=== PATIENT | male | born 1955 | race Caucasian/White ===

== ENCOUNTER → 2021-11-25 00:53 | Outpatient (CLI) | payer MEDICARE, MEDICAID, SELFPAY ==
--- NOTE | 2021-11-25 | DI.CTLCSR_ITS ---
Exam(s) CT CHEST LUNG CANCER SCREEN EXAM: CT CHEST LUNG CANCER SCREEN CLINICAL HISTORY: SCREENING FOR LUNG CA, SMOKER, F17.210. TECHNIQUE: Imaging Protocol: Low Dose Technique CONTRAST MATERIAL: None COMPARISON: No exams were available for comparison FINDINGS: CHEST: LUNGS: There is a pleural-based 3 millimeter noncalcified nodule in the lateral aspect of the left up per lobe.. No other focal left lung findings. No significant focal right lung findings.. There are no confluent infiltrates. No pleural effusions. MEDIASTINUM: There is no obvious hilar nor mediastinal adenopathy. CARDIAC: Heart size is normal. There is no pericardial effusion.Caliber of the thoracic aorta is wit hin normal limits. OTHER: Incidentally noted is a 2 x 1.5 cm subcapsular hypodensity in medial aspect right hepatic lobe , not possible to determine etiology on this type of low-dose noninfused study. Should be further st udied, starting with ultrasound. OSSEOUS: No significant osseous lesions.. IMPRESSION: 1. Solitary 3 millimeter subpleural left upper lobe nodule. 2. No infiltrates nor pleural effusions nor intrathoracic adenopathy. Hepatic finding as described a yue for which follow-up ultrasound is recommended. 3. Lung RADS Cat 2S - Benign Appearance / Behavior: Nodules with a very low likelihood of becoming a clinically active cancer due to size or lack of growth Lung-RADS 1.0 CATEGORIES: Category 0 - Prior chest CT exam(s) being located for comparison. Category 1 - Annual screening in 12 months. No nodules or definitely benign nodules. Category 2 - Annual screening in 12 months. Benign appearance. Nodules with low likelihood of becomin g active cancer. Category 3 - 6-month follow-up. Probably benign. Short-term follow-up suggested. Nodules with low lik elihood of becoming active cancer. Category 4A - 3-month follow-up and CT/PET if >8 mm in size. Suspicious finding. Findings which requi re additional testing. Category 4B - Findings which require additional testing and tissue sampling. Category 4X - Category 3 or 4 nodules with additional features or imaging findings that increases the suspicion of malignancy. Modifier S- Potentially clinically significant findings (non lung cancer) RADIATION DOSE DELIVERED: 94.49mGy.cm Total DLP 2.21mGy CTDIvol DATA REPOSITORY: All CT scans at this facility are submitted to the National Radiology Data Registry (NRDR) Dose Index Registry (DIR) with the [employer] (ACR). RADIATION OPTIMIZATION: All CT scans at this facility use at least one of these dose optimization te chniques: automated exposure control; mA and/or kV adjustment per patient size (includes targeted exa ms where dose is matched to clinical indication); or iterative reconstruction.
--- OUTSIDE RECORDS SUMMARY | 2021-11-25 01:03 | XMS_ITS | Encounter Summary ---
:1955 Author Organization [place] [address] Care Team Providers Name Role Phone Rohan Amador MD Primary Care Provider Encounter Details Date Type Department Care Team Description 08/06/[address] [facility] Jessy Vo MD [facility] [place] [address] UROLOGY DEPT [phone] [place] [id number] (Wo rk) Social History Tobacco Use Types Packs/Day Years Used Date Never Assessed Sex Assigned at Date Recorded Not on file documented as of this encounter Miscellaneous Notes Telephone Encounter - Jessy Vo MD - 08/06/2019 2:19 PM EDT I called Chapin Perez to discuss his upcoming Urology appointment. I explained that due to the COVID-19 pandemic we are making attempts to decrease the amount of non-urgent patients seen in our clinic and hospital to both decrease the risk of transmission of the virus and conserve vital resources. He had bladder cancer and a TURBT ~1 year ago. He had a TURBT at [facility] in October 2018. No hematuria. Thus, he is likely overdue for surveillance cystoscopy. Offered to keep the appt for next week or topostpone by 4-6 weeks. He prefers the latter. he understands we will jay to reschedule, but if he does not hear form us he will call to arrange anappointment. In the meantime if something changes he can call our office and we will be happy to re-evaluate and/or see him promptly. JESSY VO MD 08/06/2019 documented in this encounter Plan of Treatment Not on filedocumented as of this encounter Visit Diagnoses Not on filedocumented in this encounter Care Teams Systems Administration Analyst Relationship Specialty Start Date End Date Rohan Amador MD PCP - General 03/30/10 10/08/19 [facility] [address] [place] [address] documented as of this encounter
--- OUTSIDE RECORDS SUMMARY | 2021-11-25 01:03 | XMS_ITS | Encounter Summary ---
:1955 Author Organization [facility] Address [address] [place] [address] Care Team Providers Name Role Phone French Mcguire ND Primary Care Provider Encounter Details Date Type Department Care Team Description 10/15/2018 Hospital Encounter [facility] - Unknown, [facility] [phone] [place] [address] (Work) [place] [address] Social History Tobacco Use Types Packs/Day Years Used Date Current Every Day Smoker 1 Smokeless Tobacco: Never Used Alcohol Use Standard Drinks/Week Comments Yes 14 (1 standard drink = 0.6 oz pure alcoh ol) Sex Assigned at Date Recorded Not on file documented as of this encounter Medications at Time of Discharge Medication Sig Dispensed Refills Start Date End Date ibuprofen (MOTRIN) 200 mg Take 400 mg by mouth 0 tablet every 6 hours as needed for Pain. documented as of this encounter Discharge Disposition Disposition Code Departure Means Destination Home or Self Half-Way documented in this encounter Plan of Treatment Not on filedocumented as of this encounter Visit Diagnoses Not on filedocumented in this encounter Care Teams Occup Therapist Relationship Specialty Start Date End Date French Mcguire ND PCP - General 03/23/[address] [address] documented as of this encounter
--- OUTSIDE RECORDS SUMMARY | 2021-11-25 01:03 | XMS_ITS | Encounter Summary ---
:1955 Author Organization [facility] Address [address] [place] [address] Care Team Providers Name Role Phone French Mcguire ND Primary Care Provider Encounter Details Date Type Department Care Team Description 10/24/2018 Historical Results [facility] - Darlin Ferreira MD Only [facility] Lab - Main [facility] 130 [facility] 130 [facility] [address] [place] [address] [place] [phone] Social History Tobacco Use Types Packs/Day Years Used Date Current Every Day Smoker 1 Smokeless Tobacco: Never Used Alcohol Use Standard Drinks/Week Comments Yes 14 (1 standard drink = 0.6 oz pure alcoh ol) Sex Assigned at Date Recorded Not on file documented as of this encounter Plan of Treatment Not on filedocumented as of this encounter Procedures Procedure Name Priority Date/Time Associated Diagnosis Comme [facility] SURGICAL PATHOLOGY Routine 10/24/2018 Results f or this procedure are i n the results section . documented in this encounter Results SURGICAL PATHOLOGY (10/24/2018) Specimen Narrative [facility] - 019 13:01 EDT Name: ZE PEREZ Darlin ?: 55 ?Age/Sex: 63/M ?Unit#: [id number] ? Loc: SDS ? Status: DEP SDC ?? Reg Date: 10/24/18 ? Pt.Phone Number : ? Specimen: [id number] ? STA TUS: SOUT ?Spec Date:10/24/18 ? Physician Copies: ?Sudheer Ferreira MD ? Tissues: A ?? Urinary Bladder, TUR (BLAD JACQUELINE) ? French Mcguire ND ? CPT: 03033 ?? Units: ??1 ?FINAL DIAGNOSIS ? BLADDER TUMOR, TRANSURETHRAL RESE CTION (TURBT); ? - Histologic Type: ? Papil demetrio urothelial carcinoma, noninvasive. ? - Histologic Grade: ?Low g rade. ? - Muscularis Propria: ?No mus cularis propria (detrusor muscle) identified. ? - Lymph-Vasc Invasion: ?? Not jeanna ntified. ? - Tumor Extension: ? Nonin vasive. ? - Assoc Epith Lesions: ?? None id entified. ? - Additional Findings: ?? Cautery artifact. ? GROSS DESCRIPTION ? Received in formalin labeled with Ze Perez and bladder are multiple ? fragments of rhoades-pink tissue aggr egating 1.6 x 1.0 x 0.4 cm, e. s. 1. NM ?? PREOP DX/CLINICAL HISTORY ?Bladder cancer. Signed ____(signature on file)____ Dominique Abbasi M.D. 10/25/18 By the signature above, the attending ph ysician certifies that he/she has personally conducted a gross and/or microscopic exa mination of the described specimens and rendered or confirmed the above diagnosi s. Test Performed by [facility], [address] [place] [address] Door Core Assembler: Dominique Benavidez MD PHD Performing Organization Address City/State/[facility] Code Phon e Number [facility] [address] [place], [place] [id number] [place] [address] LAB documented in this encounter Visit Diagnoses Not on filedocumented in this encounter Care Teams Manager Of Procurement Relationship Specialty Start Date End Date French Mcguire ND PCP - General 03/23/[address] [place] [id number] documented as of this encounter
--- OUTSIDE RECORDS SUMMARY | 2021-11-25 01:03 | XMS_ITS | Encounter Summary ---
:1955 Author Organization [facility] [place] [address] Care Team Providers Name Role Phone French Mcguire Musa STAHL Primary Care Provider Encounter Details Date Type Department Care Team Description 08/25/2020 Office Visit Urology at [facility] Jessy Vo Hydrocele, right [facility] [place] [address] [facility] [phone] UROLOGY DEPT [place], [place] [address] (Wo rk) Social History Tobacco Use Types Packs/Day Years Used Date Current Every Day Smoker Smokeless Tobacco: Never Used Sex Assigned at Date Recorded Not on file documented as of this encounter Last Filed Vital Signs Vital Sign Reading Time Taken Comments Blood Pressure 143/76 08/25/2020 10:24 AM EDT Pulse 85 08/25/2020 10:24 AM EDT Temperature - - Respiratory Rate - - Oxygen Saturation - - Inhaled Oxygen Concentration - - Weight 124.7 kg (275 lb) 08/25/2020 10:24 AM EDT Height - - Body Mass Index - - documented in this encounter Progress Notes Jessy oV MD - 08/25/2020 10:20 AM EDT I had the pleasure of seeing Mr. Chapin Perez back in clinic today to discuss his history of bladder cancer and a new problem of right scrotal swelling. He is a 65 y.o. male who I last saw for cystoscopy for bladder cancer surveillance. Today, he states about 30 years ago he had a testicular trauma on the right, so the right testicle was always a little bit larger than the left. He was previously told that was related to the history of trauma. Over the last month, his right scrotum has gotten much bigger and he would like to get thischecked out. He feels a very slight pain and a bulge. No hematuria, no dysuria. Bladder cancer history: 10/15/18: CT without contrast: 3.8cm left renal cyst 10/24/18: OSH TURBT: low-grade Ta 10/15/19: negative cystoscopy I previously referred him for smoking cessation counseling, but this was never scheduled. He has notstopped smoking. He is not interested in smoking cessation to the level that he would pursue it. The patient's past medical and past surgical history were reviewed and are unchanged. PHYSICAL EXAM: BP 143/76 (BP Location (NBP): Left arm, Patient Position: Sitting, BP Cuff Sizes: Adult (25-34 cm)) Pulse 85 Wt 124.7 kg (275 lb) General: Patient is a well-appearing male in no acute distress. Head: normocephalic, atraumatic. ENT: moist mucous membranes, supple neck, midline trachea Lungs: respirations unlabored, no audible wheezing. : circumcised, normal-appearing meatus, left descended testes, nontender, no masses. Right scrotumwith tense enlargement (~8cm), testicle not palpable, clearly transilluminates Neuro: awake, alert, oriented to conversation, normal gait, neurologically grossly intact LABS: None IMAGING: Reviewed as per HPI ASSESSMENT AND PLAN: Mr. Chapin Perez is a 65 y.o. male with a history of bladder cancer and now new problem in the form of RIGHT hydrocele. - re-assurance provided - offered scrotal ultrasound, but we both decided to hold off on that given that his PE is clearly c/w hydrocele - discussed hydrocelectomy, including risks and benefits and usual perioperative course - he would like to hold off on that for now - RTC for cysto in October 2020 JESSY VO MD documented in this encounter Plan of Treatment Not on filedocumented as of this encounter Visit Diagnoses Diagnosis Hydrocele, right Hydrocele, unspecified documented in this encounter Care Teams Specimen Collector Relationship Specialty Start Date End Date French Mcguire ND PCP - General Naturopathic Medicine 10/09/19 05/02/21 [facility] [address] [place] [address] documented as of this encounter
--- OUTSIDE RECORDS SUMMARY | 2021-11-25 01:03 | XMS_ITS | Encounter Summary ---
:[address] [facility] Address [address] [place] [address] Care Team Providers Name Role Phone French Mcguire ND Primary Care Provider Encounter Details Date Type Department Care Team Description 11/26/2018 Historical Results Only [facility] - French Mcguire ND [facility] - Main [facility] 174 [facility] 130 [facility],[phone] [place] [address] [facility] Social History Tobacco Use Types Packs/Day Years [...] Procedure Name Priority Date/Time Associated Diagnosis Comme nts BACTERIAL CULTURE, Routine 11/26/2018 16:39 Resul ts for this URINE EDT procedure are i n the results section. documented in this encounter Results BACTERIAL CULTURE, URINE (11/26/2018 16:39 EDT) Pathologist Sig nature Urine Culture [facility] Urine Culture No growth. [facility] Specimen Performing Organization Address City/State/ZIP Code Phon e Number [facility] [address] [place] [address] [facility] documented in this encounter Visit Diagnoses Not on filedocumented in this encounter Care Teams Solution Coordinator Relationship Specialty Start Date End Date French Mcguire ND PCP - General 03/23/[address] [place] [address] documented as of this encounter
--- OUTSIDE RECORDS SUMMARY | 2021-11-25 01:03 | XMS_ITS | Encounter Summary ---
:1955 Author Organization [facility] [place] [address] Care Team Providers Name Role Phone French Mcguire ND Primary Care Provider Reason for Visit Reason Comments Skin Lesion Consultation (Routine) - Closed Specialty Diagnoses / Procedures Referred By Contact Refer red To Contact Dermatology Diagnoses Other skin changes Papulas French Mcguire ND [facility] Dermatology Procedures Consult [facility] [address] [place] [address] [place] [address] Referral ID Status Reason Start Date Expiration Date Visits Requ ested Visits Authorized [id number] Closed 01/15/2021 01/15/2022 1 1 Encounter Details Date Type Department Care Team Description 03/15/2021 Office Visit Dermatology at [facility] [address] keratosis) [address] [place] [address] [facility] [place], [place] [address] Social History Tobacco Use Types Packs/Day Years Used Date Current Every Day Smoker Smokeless Tobacco: Never Used Sex Assigned at Date Recorded Not on file documented as of this encounter Progress Notes Frank Hinton MD - 03/15/2021 3:00 PM EST Images from the original note were not included. DEPARTMENT OF DERMATOLOGY Medical Dermatology Clinic Note Provider: Frank Hinton MD Patient's preferred name Chapin Preferred contact method for results []myDH []Letter [x]Phone: Y Detailed phone message OK? Y Are there any other people with whom we may discuss your care? Y PAST MEDICAL HISTORY If no, type N. If yes, type date, location, treatment Melanoma N Dysplastic nevi N SCC N BCC N AKs N UV Exposure & Protection + history of blistering sunburn Other relevant past medical history (i.e. eczema, psoriasis, birthmarks, immunosuppression) N FAMILY HISTORY If yes, details Melanoma N NMSC Paternal grandfather had things removed Other relevant family history N SOCIAL HISTORY Occupation: retired Hobbies: animals PRE-PROCEDURE SCREENING If no, type N. If yes, include details below Allergy to lidocaine, epinephrine, Dermabond, chlorhexidine, or adhesives: N Bleeding disorder or blood thinners: N Implanted devices (Pacemaker, defibrillator, deep brain stimulator, cochlear implant): N History of Present Illness: Chapin Perez is a 65 y.o. year old. Patient is referred to the clinicat the request of French Mcguire for the following: - Chapin notes a lesion on his left nasal root that he first noticed ~3 months ago. It seemed to grow for 2 months before he picked it off. He feels that now it is much better and nearly resolved. Thearea is asymptomatic. - He also expresses concern regarding multiple large brown lesions on his scalp, temples, right forearm, and trunk. Areas are asymptomatic, but he would like to have the examined. - After addressing the above concerns in the detailed assessment and plan below, patient requested that I examine his leg. He sustained trauma from a horse kick ~20 years ago and has ever since had difficulty with the leg. At this point, it is dark and firm. No skin break down. He is not treating withanything. Review of Systems: General: Feeling well. Skin: No other skin concerns. Medications: Reviewed in eD-H Allergies: Reviewed in eD-H Skin Examination: Focused skin examination of the scalp and face was normal with the exception of the findings below Assessment/Plan #. Concern for Basal Cell Carcinoma - 6 mm thin light pink smooth papule with apparent pigment globules on the left nasal root. Difficult to fully assess on dermoscopy due to location. DDx: BCC vs Ak vs ISK - Recommended biopsy to further characterize. - Patient notes that the area has been improving and looks significantly better today than it did ~1month ago. - After reviewing risks/benefits, patient prefers to defer biopsy at this time and clinically monitor. - Plan for close follow up and re-evaluation. Discussed that if lesion and clinical concern persist at follow up, would recommend biopsy at that time. #. Seborrheic Keratoses - Scattered brown and flesh colored waxy nummular stuck on plaques located on the trunk and extremities, including on the scalp and right forearm - Reassured of benign nature, return to clinic if these lesions become inflamed or irritating #. Venous Stasis / Lipodermatosclerosis - circumferential indurated pink/roman/brown focally scaly plaque on the left lower extremity in the setting of edema. - Reviewed condition and discussed that a follow up appointment should be made in order to review findings/expectations/management in detail. - Recommended sensitive skin care with dove fragrance free sensitive skin bar soap and amlactin rapid relief moisturizer. - Stressed importance of preventing trauma and skin breakdown. - Elevate whenever possible. - Recommend compression. Patient feels that this has not been helpful for him in the past. The importance can be emphasized with future visits. Photo taken and given to patient. Will follow clinically. Other items to document in the assessment/plan if relevant ??? Sun protection discussed (protective clothing and SPF30+ broad-spectrum sunscreen) ??? OTC skin products discussed RTC: 2 month follow up for lesion on the left eye. []Note routed to secretary specialist []Recall has been placed in scheduling system [x]Appointment scheduled at checkout Scribe attestation: KOMAL Anton who has performed the documentation for this encounterin the presence of and acting as a scribe for Frank Hinton MD. I performed the above scribed service and agree with the accuracy of the documentation in this encounter. Reviewed and signed by: Frank Hinton MD Dermatology [facility] Patient seen and evaluated with staff open hearth stockyard supervisor: Nalini Romano MD Department of Dermatology [facility] Nalini Romano MD - 03/15/2021 3:00 PM EST I directly supervised Dr. Hinton during this office visit. Dr. Hinton presented the history and physical exam to me. I then saw and examined this patient with Dr. Hinton . We reviewed the history and pertinent details and I confirmed the physical findings. I agree with the details of the history and physical exam as documented in Dr. Hinton's note. Nalini Romano MD Staff Physician documented in this encounter Plan of Treatment Not on filedocumented as of this encounter Visit Diagnoses Diagnosis SK (seborrheic keratosis) Other seborrheic keratosis documented in this encounter Care Teams Meat Seafood Associate Relationship Specialty Start Date End Date French Mcguire ND PCP - General Naturopathic Medicine 10/09/19 05/02/21 [facility] [address] [place] [address] documented as of this encounter
--- OUTSIDE RECORDS SUMMARY | 2021-11-25 01:03 | XMS_ITS | Encounter Summary ---
:1955 Author Organization [facility] [place] [address] Care Team Providers Name Role Phone Juan Case ND Primary Care Provider [phone] Encounter Details Date Type Department Care Team Description 10/05/2021 Orders Only Urology Ana Torres MD [facility] [place] [address] UROLOGY DEPT [phone] [place], [place] [address] (Wo rk) Social History Tobacco Use Types Packs/Day Years Used Date Current Every Day Smoker Smokeless Tobacco: Never Used Sex Assigned at Date Recorded Not on file documented as of this encounter Plan of Treatment Not on filedocumented as of this encounter Visit Diagnoses Not on filedocumented in this encounter Care Teams Circus Trainer Relationship Specialty Start Date End Date Juan Case ND PCP - General Naturopathic Medicine 05/03/[address] [address] documented as of this encounter
--- OUTSIDE RECORDS SUMMARY | 2021-11-25 01:03 | XMS_ITS | Encounter Summary ---
:1955 Author Organization [facility] [place] [address] Care Team Providers Name Role Phone French Mcguire ND Primary Care Provider Encounter Details Date Type Department Care Team Description 09/16/2020 Telephone Urology at [facility] Gigi Vo MD [facility] [place] [address] UROLOGY DEPT [phone] [place], [place] [address] (Wo rk) Social History Tobacco Use Types Packs/Day Years Used Date Current Every Day Smoker Smokeless Tobacco: Never Used Sex Assigned at Date Recorded Not on file documented as of this encounter Miscellaneous Notes Telephone Encounter - Emma Marsh - 09/16/2020 2:26 PM EDT Spoke with pt to schedule cysto with Dr. Vo in October. Pt said that he would need to discuss with his and will call back to schedule. documented in this encounter Plan of Treatment Not on filedocumented as of this encounter Visit Diagnoses Not on filedocumented in this encounter Care Teams Building Construction Engineer Relationship Specialty Start Date End Date French Mcguire ND PCP - General Naturopathic Medicine 10/09/19 05/02/21 [facility] 3 [address] [place], [place] [id number] documented as of this encounter
--- OUTSIDE RECORDS SUMMARY | 2021-11-25 01:03 | XMS_ITS | Encounter Summary ---
:1955 Author Organization [facility] [place] [address] Care Team Providers Name Role Phone Juan Case ND Primary Care Provider [phone] Encounter Details Date Type Department Care Team Description 09/30/2021 Telephone Urology at [facility] Gigi Vo MD [facility] [place] [address] UROLOGY DEPT [phone] [place] [id number] (Wo rk) Social History Tobacco Use Types Packs/Day Years Used Date Current Every Day Smoker Smokeless Tobacco: Never Used Sex Assigned at Date Recorded Not on file documented as of this encounter Miscellaneous Notes Telephone Encounter - Marquez Marx RN - 09/30/2021 9:45 AM EDT Spoke with patient with urgency frequency, burning with urination and is having chills (does not own thermometer) Placed order for urine culture to be done today at [facility] to rule out infection. encouraged hydration, if experiences fever chills and lightheadedness they should proceed to local ED for further evaluation. [place] significant other verbalized understanding of the above reccomondations Telephone Encounter - Albert Granado - 09/30/2021 8:47 AM EDT Patients calling, has been having urgency, burning and has had the chills off and on. PHONE: [phone] documented in this encounter Plan of Treatment Not on filedocumented as of this encounter Visit Diagnoses Not on filedocumented in this encounter Care Teams [place] Support Worker Relationship Specialty Start Date End Date Juan Case ND PCP - General Naturopathic Medicine 05/03/[address] [address] documented as of this encounter
--- OUTSIDE RECORDS SUMMARY | 2021-11-25 01:03 | XMS_ITS | Clinical Summary ---
:1955 Author Organization [facility] Address [address] [place] [address] Care Team Providers Name Role Phone French Mcguire MARIBETH Primary Care Provider Allergies No known active allergies Medications Medication Sig Dispensed Refills Start Date End Date Status ibuprofen (MOTRIN) 200 Take 400 mg by 0 Active mg tablet mouth every 6 hours as needed for Pain. 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 (HC C-CMS) 04/25/2013 Overview: Left worse than the right Ventral hernia without obstruction or gangrene 013 Overview: ICD10 Update Auto Replacement Surgical History Surgery Date Site/Laterality Comments HERNIA REPAIR Family History Medical History Relation Name Comments Cancer Father Heart Disease Maternal Grandfather Heart Disease Maternal Uncle Depression Mother Diabetes Mother High Blood Pressure Mother High Cholesterol Mother Relation Name Status Comments Father Maternal Grandfather Maternal Uncle Mother Social History Tobacco Use Types Packs/Day Years Used Date Current Every Day Smoker 1 Smokeless Tobacco: Never Used Tobacco Cessation: Ready to Quit: Yes Alcohol Use Standard Drinks/Week Comments Yes 14 (1 standard drink = 0.6 oz pure alcoh ol) Sex Assigned at Date Recorded Not on file Last Filed Vital Signs Vital Sign Reading Time Taken Comments Blood Pressure 171/104 03/26/2018 1106 EST Pulse 84 03/26/2018 1106 EST Temperature - - Respiratory Rate 16 09/18/2014 1603 EDT Oxygen Saturation - - Inhaled Oxygen Concentration - - Weight 120.2 kg (265 lb) 03/26/2018 1106 EST Height 177.8 cm (5' 10) 03/26/2018 1106 EST Body Mass Index 38.02 03/26/2018 1106 EST Plan of Treatment Health Maintenance Due Date Last Done Comments Hepatitis C Screen 1955 COVID-19 Vaccine (1) 08/13/1960 Fall Risk Screening 08/13/2020 Procedures Procedure Name Priority Date/Time Associated Diagnosis Comme nts BACTERIAL CULTURE, Routine 09/30/2021 15:26 Symptoms involving Results for this URINE EDT urinary system procedure are in the results section. from Last 3 Months Results (ABNORMAL) BACTERIAL CULTURE, URINE (09/30/2021 15:26 EDT) Organism ID Greater than 100,000 CFU/ml Escherichia coli (A) [facility] Comment: [facility] Cefazolin susceptibility res ults can be used to predict susceptibility results for the following oral cephalosporins when used for therapy of uncomplicated UTI's due to E.coli, K.pneumoniae and P.mirabi lis: cefaclor, cefdinir, cef podoxime, cefprozil, cefuroxime, cephalexin and loracarbef. ??Please note that only cefdinir, cefpodoxime, cefuroxime and cephalexin are on the [facility] inpatient formulary. Specimen Urine - Urine specimen collection, clean catch (procedure) Organism Antibiotic Method Susceptibility Escherichia coli Amoxicillin Clavulanic VITEK SUSCEPTIBILITY <=2 ug/mL: Susceptible acid Escherichia coli Ampicillin VITEK SUSCEPTIBILITY <=2 ug/mL: Susceptible Escherichia coli Ampicillin Sulbactam VITEK SUSCEPTIBILITY <=2 u g/mL: Susceptible Escherichia coli Cefazolin VITEK SUSCEPTIBILITY <=4 ug/mL: Susceptible Escherichia coli Cefepime VITEK SUSCEPTIBILITY <=1 ug/mL: Susceptible Escherichia coli Ceftriaxone VITEK SUSCEPTIBILITY <=1 ug/mL: Susceptible Escherichia coli Ciprofloxacin VITEK SUSCEPTIBILITY <=0.25 ug/ mL: Susceptible Escherichia coli Ertapenem VITEK SUSCEPTIBILITY <=0.5 ug/m L: Susceptible Escherichia coli Gentamicin VITEK SUSCEPTIBILITY <=1 ug/mL: Susceptible Escherichia coli Levofloxacin VITEK SUSCEPTIBILITY <=0.12 ug/ mL: Susceptible Escherichia coli Nitrofurantoin VITEK SUSCEPTIBILITY <=16 ug/mL : Susceptible Escherichia coli Piperacillin Tazobactam VITEK SUSCEPTIBILITY <= 4 ug/mL: Susceptible Escherichia coli Tobramycin VITEK SUSCEPTIBILITY <=1 ug/mL: Susceptible Escherichia coli Trimethoprim-Sulfamethox VITEK SUSCEPTIBILITY < =20 ug/mL: Susceptible azole Performing Organization Address City/State/ZIP Code Phon e Number [facility] [address] [place] [address] from Last 3 Months Insurance Payer Benefit Plan Subscriber ID Effective Phone Address Typ e / Group Dates MEDICAID ACO MEDICAID ACO [id number] 2019-Pres [phone] [address] [place] [address], [place] [address] [phone] (Work) Chapin Perez Personal/Family Self 1955 [address] (Home) [place], [place] [phone] (Work) Chapin Perez Personal/Family Self 1955 [address] (Home) [place], [place] [phone] (Work) Chapin Perez Personal/Family Self 1955 [address] (Home) [place] [phone] (Work) Chapin Perez Personal/Family Self 1955 [address] (Home) [place] [phone] (Work) Chapin Perez Personal/Family Self 1955 [address] (Home) [place], [place] [phone] (Work) Chapin Perez Personal/Family Self 1955 [address] (Home) [place], [place] [phone] (Work) Chapin Perez Personal/Family Self 1955 [address] (Home) [place], [place] [phone] (Work) Advance Directives For more information, please contact: [phone] Documents on File Type Date Recorded Patient Artificial Intelligence Specialist Explanati on Advance Directives and Living Will Power of International Travel Consultant Care Teams Layout Designer Relationship Specialty Start Date End Date French Mcguire ND PCP - General 03/23/[address] [place] [id number]
--- OUTSIDE RECORDS SUMMARY | 2021-11-25 01:03 | XMS_ITS | Encounter Summary ---
:1955 Author Organization [facility] [place] [address] Care Team Providers Name Role Phone Juan Case ND Primary Care Provider [phone] Encounter Details Date Type Department Care Team Description 09/30/2021 Orders Only Urology at [facility] Keyanna Parker Lower urinary tract [facility] symptoms ([place]) [place] [address] UROLOGY [place], [place] [address] Social History Tobacco Use Types Packs/Day Years Used Date Current Every Day Smoker Smokeless Tobacco: Never Used Sex Assigned at Date Recorded Not on file documented as of this encounter Plan of Treatment Scheduled Orders Name Type Priority Associated Diagnoses Order S chedule Urine culture Clean Microbiology Routine Lower urinary tract E xpected: Catch Urine symptoms (LUTS) 09/30/2021, Expires: 09/30/2022 documented as of this encounter Visit Diagnoses Diagnosis Lower urinary tract symptoms (LUTS) Other symptoms involving urinary system documented in this encounter Care Teams Hand Stemmer Relationship Specialty Start Date End Date Juan Case ND PCP - General Naturopathic Medicine 05/03/[address] [address] documented as of this encounter
--- OUTSIDE RECORDS SUMMARY | 2021-11-25 01:03 | XMS_ITS | Encounter Summary ---
:1955 Author Organization [facility] [place] [address] Care Team Providers Name Role Phone French Mcguire ND Primary Care Provider Reason for Visit Consultation (Routine) - Closed Specialty Diagnoses / Procedures Referred By Contact Refer red To Contact Urology Diagnoses Malignant neoplasm of bladder, unspecified Obesity, unspecified Unspecified osteoarthritis, unspecified site Tobacco use GRADE 2 - 4-6 WK - APPT 08/13/19 consultation for follow up of bladder cancer, urgency is moderate, French Mcguire ND [facility] Urology preferably he would be seen within 6-8 w eeks. [facility] [id number] [place] [phone] Fax: Referral ID Status Reason Start Date Expiration Date Visits V isits Requested Authorized [id number] Closed Consult, 07/08/2019 07/07/2020 1 1 Test & Treat Encounter Details Date Type Department Care Team Description 10/15/2019 Office Visit Urology at [facility] Jessy Vo Personal history of [facility] MD Dion[place] malignant [place] [address] UROLOGY DEPT [phone] [place], [place] [address] Social History Tobacco Use Types Packs/Day Years Used Date Never Assessed Sex Assigned at Date Recorded Not on file documented as of this encounter Patient Instructions Patient InstructionsWiYomaira lucia LPN - 10/15/2019 3:40 PM EDT Instructions following Cystoscopy Activity: As tolerated by your comfort level. Fluids: You should increase your water today. Avoid coffee, tea and cola. You do not need to exceed 64 ounces of water today. Urination: You will likely have a small amount of blood in your urine for the next several days. This is normal; however, if you are passing large amounts of blood clots or are unable to void please call our office at [phone] before 5PM or [phone] after hours. Please call if: * you have copious blood in your urine * fevers greater than 101.3 F * you are unable to void The number for questions is [phone] before 5 PM weekdays and [phone] after 5 PM and weekends. Follow-up: Repeat Cystoscopy in 1 year, may ask for Valium for day of procedure. documented in this encounter Progress Notes Jessy Vo MD - 10/15/2019 3:40 PM EDT Mr. Perez underwent cystoscopy today for his history of bladder cancer. This showed No evidence of recurrence. RTC in 1 year for surveillance cysto. Patient had previously requested Valium, but decidednot to take it today, He is potentially interested in taking Valium prior to the next cysto, will let us know when he schedules the procedure. JESSY VO MD 10/15/2019 Urologic Oncology [facility], [place], [place] process coach (Urology) and of [facility], [facility] at [facility] documented in this encounter Procedure Notes Jessy Vo MD - 10/15/2019 3:40 PM EDTAssociated Order(s): CYSTOSCOPY Pre-Procedure Diagnose(s): Personal history of malignant neoplasm of bladder Cystoscopy Preoperative Diagnosis: Encounter Diagnoses Name Primary? Personal history of malignant neoplasm of bladder Bladder cancer history: 10/15/18: CT without contrast: 3.8cm left renal cyst 10/24/18: OSH TURBT: low-grade Ta ? Postoperative Diagnosis: Same Procedure/Operation Performed: Cystoscopy Attending Surgeon: JESSY VO MD Resident Surgeon: None Anesthesia: Xylocaine jelly Pre-Medication: Cipro Preparation: None Indications for Procedure: This 64 y.o. male presents with the diagnosis / diagnoses listed above. The procedure was described in detail to the patient. The risks, benefits, and alternatives were thoroughly discussed. The patient wished to proceed with the recommended procedure. Written informed consent was obtained and is documented in the chart. Time Out: A time-out was completed verifying correct patient, procedure, site, positioning, and implant(s) and/or special equipment prior to beginning this procedure. Procedure and Findings: The patient was prepped and draped in the usual manner in the supine frog legged position. Cystoscopy was carried out using the flexible cystoscope. The urethra was normal. The prostatic urethra was normal. The bladder mucosa was normal. The ureteral orifices were normal. Additional findings: none Estimated Blood Loss: None Complications: None Impression: No evidence of recurrence. RTC in 1 year for surveillance cysto. Patient had previously requested Valium, but decided not to take it today, He is potentially interested in taking Valium prior to the next cysto, will let us know when he schedules the procedure. documented in this encounter Plan of Treatment Not on filedocumented as of this encounter Procedures Procedure Name Priority Date/Time Associated Diagnosis Comme nts CYSTOSCOPY Routine 10/15/2019 3:40 PM Personal history of Re sults for this EDT malignant neoplasm of proced ure are in the bladder results section . documented in this encounter Results Cystoscopy - Today (10/15/2019 3:40 PM EDT) Narrative Jessy Vo MD - 10/15/2019 3:4 0 PM EDT Jessy Vo MD ? 10/15/2019 ??5:28 PM Cystoscopy Preoperative Diagnosis: Encounter Diagno ses Name Primary? ? ? Personal history of malignant neoplasm of bladder ?? Bladder cancer history: 10/15/18: CT without contrast: 3.8cm lef t renal cyst 10/24/18: OSH TURBT: low-grade Ta ? Postoperative Diagnosis: Same Procedure/Operation Performed: Cystoscop y Attending Surgeon: Anuj SHEPARD Resident Surgeon: Eveline Anesthesia: Xylocaine jelly Pre-Medication: Cipro Preparation: None Indications for Procedure: This 64 y.o. male presents with the diagnosis / diagnoses listed above. The procedure was described in detail to the patient. ??The risks, b enefits, and alternatives were thoroughly discussed. The patient w ished to proceed with the recommended procedure. ??Written informe d consent was obtained and is documented in the chart. Time Out: A time-out was completed verif wagner correct patient, procedure, site, positioning, and implan t(s) and/or special equipment prior to beginning this proced ure. Procedure and Findings: The patient was prepped and draped in the usual manner in the supine frog legged p osition. Cystoscopy was carried out using the flexible cystoscop e. The urethra was normal. The prostatic urethra was normal. The bladder mucosa was normal. The ureteral orifices were normal. Additional findings: none Estimated Blood Loss: None Complications: None Impression: No evidence of recurrence. R TC in 1 year for surveillance cysto. Patient had previous ly requested Valium, but decided not to take it today, He is pote ntially interested in taking Valium prior to the next cysto, w ill let us know when he schedules the procedure. Jessy Vo MD PROCEDURE ORDERABLES documented in this encounter Visit Diagnoses Diagnosis Personal history of malignant neoplasm o f bladder documented in this encounter Care Teams Glazier Artist Relationship Specialty Start Date End Date French Mcguire ND PCP - General Naturopathic Medicine 10/09/19 05/02/21 [facility] [address] [place] [address] documented as of this encounter
--- OUTSIDE RECORDS SUMMARY | 2021-11-25 01:03 | XMS_ITS | Clinical Summary ---
:1955 Author Organization [facility] [address] Care Team Providers Name Role Phone Case, Juan Ham ND Primary Care Provider Allergies Active Allergy Reactions Severity Noted Date Comments Dog Dander 08/25/2020 Cat/Feline Products 08/25/2020 Cat hair Medications Medication Sig Dispensed Refills Start Date End Date Status ibuprofen Take 600 mg by 0 Activ e (Advil;Motrin) 600 mg mouth every 6 Tablet hours as needed for Pain. ProAir HFA 90 TAKE 2 PUFFS BY 0 05/22/2020 Active mcg/actuation HFA MOUTH NEEDED, Aerosol Inhaler UP TO 6 PUFFS/DAY sulfamethoxazole-trime Take 1 tablet by 14 tablet 0 10/05/2021 Active thoprim DS (Bactrim mouth 2 times DS) 800-160 mg Tablet daily. 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 Overview: Left worse than the right Ventral hernia without obstruction or gangrene 013 Overview: ICD10 Update Auto Replacement Encounters Date Type Specialty Care Team Description 10/05/2021 Telephone Urology Eleanor Vazquez LNA 10/05/2021 Orders Only Urology Ana Torres MD 09/30/2021 Orders Only Urology Keyanna Parker PA Lower ur inary tract symptoms (LUTS) 09/30/2021 Telephone Urology Gigi Vo MD from Last 3 Months Social History Tobacco Use Types Packs/Day Years [...] - - Body Mass Index - - Plan of Treatment Health Maintenance Due Date Last Done Comments Covid-19 Vaccine (#1) 08/13/1960 Pneumoccocal Vaccine: 65+ (1 - PCV) 08/13/1961 Hepatitis C Screening 08/13/1973 Lipid Screening 08/13/1973 Tdap adult 08/13/1974 Tetanus vaccine 08/13/1974 Colonoscopy 08/13/2000 Zoster vaccine (1 of 2) 08/13/2005 Advance Directive 08/13/2010 AAA Screen 08/13/2020 Influenza (Flu) vaccine (1 of 1 - Influenza standard 01/06/2022 series) Insurance Payer Benefit Plan / Subscriber ID Effective Dates Phone Addre ss Type Group MEDICARE MEDICARE PART [id number] 2021-Prese [phone] [place] [address] MEDICARE MEDICARE PART [id number] 2021-Prese [phone] [place] [address] [place] [id number] 2021-Prese [phone] [address] [place] [address] Care Teams Wharf Helper Relationship Specialty Start Date End Date Juan Case ND PCP - General Naturopathic Medicine 05/03/21 [facility] [address] [place] [address]
--- OUTSIDE RECORDS SUMMARY | 2021-11-25 01:03 | XMS_ITS | Encounter Summary ---
:1955 Author Organization [facility] [place] [address] Care Team Providers Name Role Phone Rohan Amador MD Primary Care Provider Reason for Referral Consultation (Routine) - Closed Specialty Diagnoses / Procedures Referred By Contact Refer red To Contact Thoracic Surgery Diagnoses Personal history of malignant neoplasm of bladder SMOKING CESSATION PROGRAM Gigi Vo, [facility] [address] [facility] [place] [address] [place] [address] Referral ID Status Reason Start Date Expiration Date Visits V isits Requested Authorized [id number] Closed Consult, 10/08/2019 10/07/2020 1 1 Test & Treat Encounter Details Date Type Department Care Team Description 10/08/2019 TH Visit Urology at [facility] Gigi Vo Personal history of (TeleHealth) [facility] MD Dionne malignant neoplasm [place] [address] UROLOGY DEPT [phone] [place], [place] [address] Social History Tobacco Use Types Packs/Day Years Used Date Never Assessed Sex Assigned at Date Recorded Not on file documented as of this encounter Progress Notes Gigi Vo MD - 10/08/2019 8:00 AM EDT I called Chapin Perez for a phone visit to discuss his urologic concerns. The patient's problem is suitable for a telephone visit. I obtained verbal consent from the patient that this encounter may be billed similar to a clinic visit and he agreed. Reason for referral / primary problem: History of bladder cancer with need for follow-up. Bladder cancer history: 10/15/18: CT without contrast: 3.8cm left renal cyst 10/24/18: OSH TURBT: low-grade Ta Subjective: Since the surgery, he has had no follow-up and no cysto. He felt like he did not things explained well with his prior urologist and so he has had no further follow-up. Regarding his voiding, he has no concerns, no hematuria. No dysuria, sometimes a little urgency. He smokes cigarettes, about 1/2 to 1 pack per day. I tried to quit and quit for a while and the restarted. He had no specific therapy, just tried with use of buproprion. No FH of urologic malignancies. PMH: Patient Active Problem List Diagnosis Code ??? Adjustment disorder with mixed disturbance of emotions and conduct F43.25 ??? Tobacco abuse Z72.0 ??? Varicose veins of legs with ulcer and inflammation I83.229, I83.219, L97.919, L97.929 ??? Ventral hernia without obstruction or gangrene K43.9 PSH: TURBT as per above 2014 ventral hernia repair with mesh Meds: Ibuprofen prn Allergies no known allergies Decision Making/Plan: # h/o bladder cancer: he is scheduled for surveillance cystoscopy next week. Described the rationalefor the procedure. Also discussed, surveillance schedule. He is very anxious regarding the procedure. Discussed the option of taking one pill of Valium 10mg prior to the procedure. This would require that he bring a trailer truck driver. He would like to do this and I senta Rx to his pharmacy. # h/o exposure to chemicals and smoking: strongly encouraged smoking cessation; he would love to stop smoking. Recommended smoking cessation consult via [facility] and put in a referral. PCP: Dr. Eula Mcguire, hazardous materials handler I provided care to the patient today via telephone call, 35 minutes telephone visit was spent in discussion with patient on above. documented in this encounter Plan of Treatment Scheduled Referrals Name Type Priority Associated Diagnoses Order S chedule Referral to Smoking Outpatient Referral Routine Personal histo ry of Ordered: Cessation Program malignant neoplasm 06/2019 of bladder documented as of this encounter Visit Diagnoses Diagnosis Personal history of malignant neoplasm o f bladder documented in this encounter Care Teams Nephrology Social Worker Relationship Specialty Start Date End Date Rohan Amador MD PCP - General 03/30/10 10/08/19 [facility] [address] [place] [address] documented as of this encounter
--- OUTSIDE RECORDS SUMMARY | 2021-11-25 01:04 | XMS_ITS | Encounter Summary ---
:1955 Author Organization [facility] Address [address] [place] [address] Care Team Providers Name Role Phone Griselda Mcpherson MD Primary Care Provider Reason for Visit Reason Comments Post-OP Follow Up Encounter Details Date Type Department Care Team Description 2014 Office Visit [facility] Greta Longo Ventr al hernia, General Surgery - MD Matthew unspecified, without [place] [address] mention of obstruction [address] or gangrene (Primary [address] [place], [place] Dx) [place] [address] [phone] Social History Tobacco Use Types Packs/Day Years Used Date Current Every Day Smoker 3 Alcohol Use Standard Drinks/Week Comments Yes 0 (1 standard drink = 0.6 oz pure alcoho l) Sex Assigned at Date Recorded Not on file documented as of this encounter Last Filed Vital Signs Vital Sign Reading Time Taken Comments Blood Pressure 146/94 2014 1518 EDT Pulse 92 2014 1518 EDT Temperature - - Respiratory Rate 18 2014 1518 EDT Oxygen Saturation - - Inhaled Oxygen Concentration - - Weight - - Height - - Body Mass Index - - documented in this encounter Progress Notes Greta Longo MD - 2014 2131 EDT Subjective: Chapin Perez presents to the clinic 2 weeks following ventral and umbilical hernia repair. Eatinga regular diet without difficulty. Bowel movements are normal, but did have constipation. Minimal pain. Objective: BP 146/94 Pulse 92 Resp 18 General: alert and cooperative Abdomen: soft, bowel sounds active, non-tender, no hernias Incision: healing well, well approximated, moderate contraction Assessment: Doing well postoperatively. Plan: 1. Operative findings reviewed and discussed with the patient. 2. Wound care discussed. 3. Pt is to increase activities as tolerated. 4. Follow up 5 weeks for recheck. documented in this encounter Plan of Treatment Not on filedocumented as of this encounter Visit Diagnoses Diagnosis Ventral hernia, unspecified, without men tion of obstruction or gangrene - Primary documented in this encounter Care Teams Farm Management Adviser Relationship Specialty Start Date End Date Griselda Mcpherson MD PCP - General 04/12/12 03/22/[address] [place] [address] [phone] documented as of this encounter
--- OUTSIDE RECORDS SUMMARY | 2021-11-25 01:04 | XMS_ITS | Encounter Summary ---
:1955 Author Organization [facility] Address [address] [place] [address] Care Team Providers Name Role Phone Griselda Mcpherson MD Primary Care Provider Reason for Visit Reason Onset Date Comments Other 08/06/2013 Encounter Details Date Type Department Care Team Description 08/06/2013 Telephone [facility] Tyrone Ramirez, Other Surgery - [place] VALDERRAMA [address] [facility] [address] [place] [address] [place] [phone] (Wo rk) Social History Tobacco Use Types Packs/Day Years Used Date Current Every Day Smoker 3 Alcohol Use Standard Drinks/Week Comments Yes 0 (1 standard drink = 0.6 oz pure alcoho l) Sex Assigned at Date Recorded Not on file documented as of this encounter Miscellaneous Notes Telephone Encounter - Lorraine Kwan RN - 08/06/2013 1506 EDT Prescription faxed for the requested stockings. No further interventions. elephone Encounter - Lorraine Kwan RN - 08/06/2013 1042 EDT Elaien will fax information over regarding the ultra stocking which allows for compression of 40 and up. elephone Encounter - Debra Alfaro - 08/06/2013 1018 EDT Elaine from [facility] called and is questioning if they can give the patient an ultra stocking instead of the compression stocking. Patient as an sore on his ankle and they are afraid the compressionstocking will irritate it. Please call [phone] documented in this encounter Plan of Treatment Not on filedocumented as of this encounter Visit Diagnoses Not on filedocumented in this encounter Care Teams Travel Agency Manager Relationship Specialty Start Date End Date Griselda Mcpherson MD PCP - General 04/12/12 03/22/[address] [place] [phone] documented as of this encounter
--- OUTSIDE RECORDS SUMMARY | 2021-11-25 01:04 | XMS_ITS | Encounter Summary ---
:1955 Author Organization [facility] Address [address] [place] [address] Care Team Providers Name Role Phone Griselda Mcpherson MD Primary Care Provider Reason for Visit Reason Comments Discuss Surgery Encounter Details Date Type Department Care Team Description 07/09/2014 Office Visit [facility] Sharath Vega Stress disorder, acute Family Medicine - S, PhD (Primary D x) [address] [address] Social History Tobacco Use Types Packs/Day Years Used Date Current Every Day Smoker 3 Alcohol Use Standard Drinks/Week Comments Yes 0 (1 standard drink = 0.6 oz pure alcoho l) Sex Assigned at Date Recorded Not on file documented as of this encounter Progress Notes Sharath Vega, PhD - 07/09/2014 9045 EST [facility] PROGRESS NOTE Name: Chapin Perez : 1955 Symptoms/Issues Discussed: Adjustment issues DSM-IV: [place] I: Generalized anxiety disorder 300.02 [place] II: - [place] III: Patient Active Problem List: Patient Active Problem List Diagnosis ??? 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 Ventral hernia, unspecified, without mention of obstruction or gangrene ??? Stress disorder, acute [place] IV: Problems with primary supports, Problems with social environment and Problems accessing healthcare Severity: Moderate [place] V: Global Assessment of Functioning 51-60 Moderate Difficulty in Functioning/Moderate Symptoms Current GAF: 55 Treatment Plan: Identify and reduce avoidance behaviors contributing negatively to mood Identify, implement and maintain healthy personal boundaries Identify and decrease cognitive distortions contributing negatively to mood and behavior Learn and implement positive coping skills Learn and utilize emotion regulation strategies Prognosis: Good Progress to Date: Good PHI: Minutes in session 53 Managed care session/count: - Rationale for therapeutic modality: Treatment is evidence supported CBT at the least frequency thatwill support the treatment goals GAF: 56 PHQ: TATIANA: AUDIT: Medical Issues to Communicate Anxiety: Anxiety and Health Concerns Relationships: Couples Distress Lifestyle Changes Exercise - same Stress Management - worse Social Support - improved Nutrition - n/a Subjective: Patient presented symptoms listed above. Objective: Improved Assessment (Goals and Progress Towards Goals): Good follow through with assigned tasks, Patient is activated and Self report that problem is improving Patient Reported Outcomes: Problems/symptoms: Some progress Mutually agreed to tasks: Were partially accomplished Updated Treatment Plan: Maintain plan identified above documented in this encounter Plan of Treatment Not on filedocumented as of this encounter Visit Diagnoses Diagnosis Stress disorder, acute - Primary Other acute reactions to stress documented in this encounter Care Teams Bed Worker Relationship Specialty Start Date End Date Grieslda Mcpherson MD PCP - General 04/12/12 03/22/[address] [place] [phone] documented as of this encounter
--- OUTSIDE RECORDS SUMMARY | 2021-11-25 01:04 | XMS_ITS | Encounter Summary ---
:1955 Author Organization [facility] Address [address] [place] [address] Care Team Providers Name Role Phone Griselad Mcpherson MD Primary Care Provider Reason for Visit Reason Comments Stress Encounter Details Date Type Department Care Team Description 01/05/2015 Office Visit [facility] Sharath Vega Adjust ment disorder Family Medicine - S, PhD with mixed disturbance [place] of emotions and [address] conduct (Primary Dx) [address] [place], [place] [phone] Social History Tobacco Use Types Packs/Day Years Used Date Current Every Day Smoker 3 Alcohol Use Standard Drinks/Week Comments Yes 0 (1 standard drink = 0.6 oz pure alcoho l) Sex Assigned at Date Recorded Not on file documented as of this encounter Progress Notes Sharath Vega, PhD - 01/05/2015 1719 EDT [facility] PROGRESS NOTE Name: Chapin Perez : 1955 Symptoms/Issues Discussed: Stress DSM-IV: [place] I: ADJUSTMENT DISORDER [place] II: - [place] III: Patient Active Problem List: Patient Active Problem List Diagnosis ??? 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 Ventral hernia, unspecified, without mention of obstruction or gangrene ??? Stress disorder, acute ??? Tobacco abuse ??? Adjustment disorder with mixed disturbance of emotions and conduct [place] IV: Problems with primary supports and Relationship problems Severity: Moderate [place] V: Global Assessment of Functioning 51-60 Moderate Difficulty in Functioning/Moderate Symptoms - Treatment Plan: Identify and reduce avoidance behaviors contributing negatively to mood Identify, implement and maintain healthy personal boundaries Learn and implement positive coping skills Learn and utilize emotion regulation strategies Prognosis: Good Progress to Date: Excellent PHI: Minutes in session 55 Managed care session/count: - Rationale for therapeutic modality: Treatment is evidence supported CBT at the least frequency thatwill support the treatment goals No flowsheet data found. Medical Issues to Communicate Mood: Guilt and Irritability Relationships: Couples Distress and Family Tension Lifestyle Changes Exercise - same Stress Management - improved Social Support - improved Nutrition - n/a Subjective: Patient presented symptoms listed above. Objective: Improved Assessment (Goals and Progress Towards Goals): Patient is activated and Self report that problem is improving Patient Reported Outcomes: Problems/symptoms: Some progress Mutually agreed to tasks: Were partially accomplished Updated Treatment Plan: Maintain plan identified above documented in this encounter Plan of Treatment Not on filedocumented as of this encounter Visit Diagnoses Diagnosis Adjustment disorder with mixed disturban ce of emotions and conduct - Primary documented in this encounter Care Teams Custom Van Converter Relationship Specialty Start Date End Date Griselda Mcpherson MD PCP - General 04/12/12 03/22/[address] [place] [address] [phone] documented as of this encounter
--- OUTSIDE RECORDS SUMMARY | 2021-11-25 01:04 | XMS_ITS | Encounter Summary ---
:1955 Author Organization [facility] Address [address] [place] [address] Care Team Providers Name Role Phone Griselda Mcpherson MD Primary Care Provider Reason for Referral Vascular Lab (Routine) - Closed Specialty Diagnoses / Procedures Referred By Contact Refer red To Contact Diagnoses Peripheral venous insufficiency Chauncey Freire MD Procedures VL VENOUS INSUFFICIENCY (VARICOSE VEINS) JEREMY [address] [phone] Referral ID Status Reason Start Date Expiration Date Visits Requ ested Visits Authorized [id number] Closed 02/28/2017 1 1 Reason for Visit Reason Onset Date Comments Varicose Veins 02/24/2017 BILATERAL LE VENOUS INSUFFICIENCY Encounter Details Date Type Department Care Team Description 02/24/[address] [facility] Chauncey Freire eripheral venous Vascular Surgery - MD Jack insufficiency (Primary [facility] [place] [address] [facility]) [address] [place] [address] [facility] [phone] [phone] (Wo rk) Social History Tobacco Use Types Packs/Day Years Used Date Current Every Day Smoker 3 Alcohol Use Standard Drinks/Week Comments Yes 0 (1 standard drink = 0.6 oz pure alcoho l) Sex Assigned at Date Recorded Not on file documented as of this encounter Plan of Treatment Pending Results Name Type Priority Associated Diagnoses Date/Ti me VL VENOUS INSUFFICIENCY Imaging Routine Peripheral venous 04/13/2017 11:00 EST (VARICOSE VEINS) JEREMY insufficiency documented as of this encounter Visit Diagnoses Diagnosis Peripheral venous insufficiency - Primar y Unspecified venous (peripheral) insuffic iency documented in this encounter Care Teams Curriculum Assistant Principal Relationship Specialty Start Date End Date Griselda Mcpherson MD PCP - General 04/12/12 03/22/[address] [place] [phone] documented as of this encounter
--- OUTSIDE RECORDS SUMMARY | 2021-11-25 01:04 | XMS_ITS | Encounter Summary ---
:1955 Author Organization [facility] Address [address] [place] [address] Care Team Providers Name Role Phone Griselda Mcpherson MD Primary Care Provider Reason for Visit Reason Comments Discuss Surgery Encounter Details Date Type Department Care Team Description 07/21/2014 Office Visit [facility] Sharath Vega Stress disorder, acute Family Medicine - S, PhD (Primary D x) [address] [address] Social History Tobacco Use Types Packs/Day Years Used Date Current Every Day Smoker 3 Alcohol Use Standard Drinks/Week Comments Yes 0 (1 standard drink = 0.6 oz pure alcoho l) Sex Assigned at Date Recorded Not on file documented as of this encounter Progress Notes Sharath Vega, PhD - 07/21/2014 1510 EDT [facility] PROGRESS NOTE Name: Chapin Perez : 1955 Symptoms/Issues Discussed: Stress DSM-IV: [place] I: Adjustment disorder w/anxiety 309.24 [place] II: - [place] III: Patient Active Problem List: Patient Active Problem List Diagnosis ??? 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 Ventral hernia, unspecified, without mention of obstruction or gangrene ??? Stress disorder, acute ??? Tobacco abuse [place] IV: Problems accessing healthcare Severity: Severe [place] V: Global Assessment of Functioning 51-60 Moderate Difficulty in Functioning/Moderate Symptoms - Treatment Plan: Identify and reduce avoidance behaviors contributing negatively to mood Identify, implement and maintain healthy personal boundaries Identify and decrease cognitive distortions contributing negatively to mood and behavior Learn and implement positive coping skills Prognosis: Good Progress to Date: Good PHI: Minutes in session 55 Managed care session/count: - Rationale for therapeutic modality: Treatment is evidence supported CBT at the least frequency thatwill support the treatment goals GAF: 53 PHQ: TATIANA: AUDIT: Medical Issues to Communicate Anxiety: Health Concerns Patient 10 days from Hernia surgery, managing stress, has all information. Valium prescribed by PCP to diminish anxiety symptoms pre op. Starting smoking cessation activities at this time Lifestyle Changes Exercise - same Stress Management - improved Social Support - improved Nutrition - n/a Subjective: Patient presented symptoms listed above. Objective: Improved Assessment (Goals and Progress Towards Goals): Patient is activated Patient Reported Outcomes: Problems/symptoms: Some progress Mutually agreed to tasks: Were partially accomplished Updated Treatment Plan: Maintain plan identified above documented in this encounter Plan of Treatment Not on filedocumented as of this encounter Visit Diagnoses Diagnosis Stress disorder, acute - Primary Other acute reactions to stress documented in this encounter Care Teams Weigh Box Tender Relationship Specialty Start Date End Date Griselda Mcpherson MD PCP - General 04/12/12 03/22/[address] [place] [phone] documented as of this encounter
--- OUTSIDE RECORDS SUMMARY | 2021-11-25 01:04 | XMS_ITS | Encounter Summary ---
:1955 Author Organization [facility] Address [address] [place] [address] Care Team Providers Name Role Phone Griselda Mcpherson MD Primary Care Provider Encounter Details Date Type Department Care Team Description 05/19/2016 Hospital Encounter [facility] - Unknown, [facility] [phone] [place] [address] (Work) [place], [place] [address] Social History Tobacco Use Types Packs/Day Years Used Date Current Every Day Smoker 3 Alcohol Use Standard Drinks/Week Comments Yes 0 (1 standard drink = 0.6 oz pure alcoho l) Sex Assigned at Date Recorded Not on file documented as of this encounter Discharge Disposition Disposition Code Departure Means Destination Home or Self Usp documented in this encounter Plan of Treatment Not on filedocumented as of this encounter Visit Diagnoses Not on filedocumented in this encounter Care Teams Boiler Technician Relationship Specialty Start Date End Date Griselda Mcpherson MD PCP - General 04/12/12 03/22/[address] [place] [phone] documented as of this encounter
--- OUTSIDE RECORDS SUMMARY | 2021-11-25 01:04 | XMS_ITS | Encounter Summary ---
:1955 Author Organization [facility] Address [address] [place] [address] Care Team Providers Name Role Phone Griselda Mcpherson MD Primary Care Provider Reason for Visit Reason Comments Discuss Surgery Encounter Details Date Type Department Care Team Description 06/23/2014 Office Visit [facility] Sharath Vega Ventra l hernia, Family Medicine - S, PhD unspecifie d, without [place] mention of obstruction [address] or gangrene (Primary [address] Dx) [place], [place] [phone] Social History Tobacco Use Types Packs/Day Years Used Date Current Every Day Smoker 3 Alcohol Use Standard Drinks/Week Comments Yes 0 (1 standard drink = 0.6 oz pure alcoho l) Sex Assigned at Date Recorded Not on file documented as of this encounter Progress Notes Sharath Vega, PhD - 06/23/2014 1706 EST FA [facility] PROGRESS NOTE Name: Chapin Perez : 1955 Symptoms/Issues Discussed: Adjustment issues DSM-IV: [place] I: Adjustment disorder w/disturbance emotions & conduct 309.4 [place] II: - [place] III: Patient Active Problem List: Patient Active Problem List Diagnosis ??? 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 Ventral hernia, unspecified, without mention of obstruction or gangrene ??? Stress disorder, acute [place] IV: Problems with primary supports, Problems with social environment, Problems with finances and Problems accessing healthcare Severity: Moderate [place] V: Global Assessment of Functioning 51-60 Moderate Difficulty in Functioning/Moderate Symptoms - Treatment Plan: Identify and reduce avoidance behaviors contributing negatively to mood Identify, implement and maintain healthy personal boundaries Identify and decrease cognitive distortions contributing negatively to mood and behavior Learn and implement positive coping skills Prognosis: Fair Progress to Date: Good PHI: Minutes in session 54 Managed care session/count: - Rationale for therapeutic modality: Treatment is evidence supported CBT at the least frequency thatwill support the treatment goals GAF: 54 PHQ: TATIANA: AUDIT: Medical Issues to Communicate Anxiety: Anxiety and Health Concerns Activation issues Patient scheduled vist wi Dr. Garcia to further evaluate planeed hernia operation. Anxiety high, but committed to getting this done. Pat scheduled to see Dr. Mallory in July, with surgery after that. Lifestyle Changes Exercise - improved Stress Management - improved Social Support - [...] Primary documented in this encounter Care Teams Physician Ophthalmologist Relationship Specialty Start Date End Date Griselda Mcpherson MD PCP - General 04/12/12 03/22/[address] [place] [phone] documented as of this encounter
--- OUTSIDE RECORDS SUMMARY | 2021-11-25 01:04 | XMS_ITS | Encounter Summary ---
:1955 Author Organization [facility] Address [address] [place] [address] Care Team Providers Name Role Phone Griselda Mcpherson MD Primary Care Provider Reason for Visit Reason Comments Discuss Surgery Encounter Details Date Type Department Care Team Description 07/14/2014 Office Visit [facility] Sharath Vega Stress disorder, acute Family Medicine - S, PhD (Primary D x) [address], [place] [address] Social History Tobacco Use Types Packs/Day Years Used Date Current Every Day Smoker 3 Alcohol Use Standard Drinks/Week Comments Yes 0 (1 standard drink = 0.6 oz pure alcoho l) Sex Assigned at Date Recorded Not on file documented as of this encounter Progress Notes Shartah Vega, PhD - 07/14/2014 1223 EDT [facility] PROGRESS NOTE Name: Chapin Perez : 1955 Symptoms/Issues Discussed: Adjustment issues DSM-IV: [place] I: Adjustment disorder w/disturbance emotions & conduct 309.4 [place] II: - [place] III: Patient Active Problem List: Patient Active Problem List Diagnosis ??? 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 Ventral hernia, unspecified, without mention of obstruction or gangrene ??? Stress disorder, acute [place] IV: Problems accessing healthcare Severity: Moderate [place] V: Global Assessment of Functioning 51-60 Moderate Difficulty in Functioning/Moderate Symptoms - Treatment Plan: Identify and reduce avoidance behaviors contributing negatively to mood Identify, implement and maintain healthy personal boundaries Identify and decrease cognitive distortions contributing negatively to mood and behavior Learn and implement positive coping skills Prognosis: Good Progress to Date: Good PHI: Minutes in session 52 Managed care session/count: - Rationale for therapeutic modality: Treatment is evidence supported CBT at the least frequency thatwill support the treatment goals GAF: 56 PHQ: TATIANA: AUDIT: Medical Issues to Communicate Anxiety: Anxiety Lifestyle Changes Exercise - improved Stress Management - improved Social Support - improved Nutrition - n/a Subjective: Patient presented symptoms listed above. Objective: Improved Assessment (Goals and Progress Towards Goals): Good follow through with assigned tasks and Patient is activated Patient Reported Outcomes: Problems/symptoms: Some progress Mutually agreed to tasks: Were partially accomplished Updated Treatment Plan: Maintain plan identified above documented in this encounter Plan of Treatment Not on filedocumented as of this encounter Visit Diagnoses Diagnosis Stress disorder, acute - Primary Other acute reactions to stress documented in this encounter Care Teams Mental Health Professional Relationship Specialty Start Date End Date Griselda Mcpherson MD PCP - General 04/12/12 03/22/[address] [place] [phone] documented as of this encounter
--- OUTSIDE RECORDS SUMMARY | 2021-11-25 01:04 | XMS_ITS | Encounter Summary ---
:1955 Author Organization [facility] Address [address] [place] [address] Care Team Providers Name Role Phone Griselda Mcpherson MD Primary Care Provider Reason for Visit Reason Comments Stress Encounter Details Date Type Department Care Team Description 08/26/2015 Office Visit [facility] Sharath Vega Adjust ment disorder Family Medicine - S, PhD with mixed disturbance [place] of emotions and [address] conduct (Primary Dx) [address] [place], [place] [id number] Social History Tobacco Use Types Packs/Day Years Used Date Current Every Day Smoker 3 Alcohol Use Standard Drinks/Week Comments Yes 0 (1 standard drink = 0.6 oz pure alcoho l) Sex Assigned at Date Recorded Not on file documented as of this encounter Progress Notes Sharath Vega, PhD - 08/26/2015 1604 EDT [facility] PROGRESS NOTE Name: Chapin Perez : 1955 Symptoms/Issues Discussed: Stress ICD: [place] I: ADJUSTMENT DISORDER [place] II: ADJUSTMENT DISORDER [place] III: Patient Active Problem List: Patient Active Problem List Diagnosis ??? 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 Ventral hernia without obstruction or gangrene ??? Stress disorder, acute ??? Tobacco abuse ??? Adjustment disorder with mixed disturbance of emotions and conduct [place] IV: Problems with social environment and Relationship problems Severity: Moderate [place] V: Global Assessment of Functioning 51-60 Moderate Difficulty in Functioning/Moderate Symptoms - Treatment Plan: Summary of goals: Identify and reduce avoidance behaviors contributing negatively to mood Identify, implement and maintain healthy personal boundaries Progress to date continued increased function Frequency and duration of service, twice monthly, up to 2 years, other (specify) Prognosis: Good Progress to Date: Excellent PHI: Minutes in session 28 Managed care session/count: - Rationale for therapeutic modality: Treatment is evidence supported CBT at the least frequency thatwill support the treatment goals No flowsheet data found. Medical Issues to Communicate Relationships: Social Difficulties Lifestyle Changes Exercise - same Stress Management - improved Social Support - improved Nutrition - same Subjective: Patient presented symptoms listed above. Objective: Improved Assessment (Goals and Progress Towards Goals): Good follow through with assigned tasks, Mood and affect improved and Patient is activated Patient Reported Outcomes: Problems/symptoms: Some progress Mutually agreed to tasks: Were partially accomplished Updated Treatment Plan: Maintain plan identified above documented in this encounter Plan of Treatment Not on filedocumented as of this encounter Visit Diagnoses Diagnosis Adjustment disorder with mixed disturban ce of emotions and conduct - Primary documented in this encounter Care Teams Patient Transition Specialist Relationship Specialty Start Date End Date Griselda Mcpherson MD PCP - General 04/12/12 03/22/[address] [place] [address] [phone] documented as of this encounter
--- OUTSIDE RECORDS SUMMARY | 2021-11-25 01:04 | XMS_ITS | Encounter Summary ---
:1955 Author Organization [facility] Address [address] [place] [address] Care Team Providers Name Role Phone Griselda Mcpherson MD Primary Care Provider Reason for Visit Reason Comments Stress Encounter Details Date Type Department Care Team Description 10/27/2014 Office Visit [facility] Sharath Vega Stress disorder, acute Family Medicine - S, PhD (Primary D x) [place] [address] Social History Tobacco Use Types Packs/Day Years Used Date Current Every Day Smoker 3 Alcohol Use Standard Drinks/Week Comments Yes 0 (1 standard drink = 0.6 oz pure alcoho l) Sex Assigned at Date Recorded Not on file documented as of this encounter Progress Notes Sharath Vega, PhD - 10/27/2014 8603 EDT [facility] PROGRESS NOTE Name: Chapin Perez : 1955 Symptoms/Issues Discussed: Adjustment issues DSM-IV: [place] I: Adjustment disorder w/anxiety 309.24 [place] II: - [place] III: Patient Active Problem List: Patient Active Problem List Diagnosis ??? 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 Ventral hernia, unspecified, without mention of obstruction or gangrene ??? Stress disorder, acute ??? Tobacco abuse [place] IV: Problems with primary supports and Problems with social environment Severity: Severe [place] V: Global Assessment of Functioning 51-60 Moderate Difficulty in Functioning/Moderate Symptoms - Treatment Plan: Identify and reduce avoidance behaviors contributing negatively to mood Identify, implement and maintain healthy personal boundaries Learn and implement positive coping skills Prognosis: Good Progress to Date: Good PHI: Minutes in session 54 Managed care session/count: - Rationale for therapeutic modality: Supportive Psychotherapy is indicated to assist in the management of chronic illness in order to decrease risk of requiring more intensive service and improve coping GAF: 57 PHQ: TATIANA: AUDIT: Medical Issues to Communicate Anxiety: Anxiety Lifestyle Changes Exercise - improved Stress Management - improved Social Support - same Nutrition - n/a Subjective: Patient presented symptoms [...] stress documented in this encounter Care Teams Executive Officer Relationship Specialty Start Date End Date Griselda Mcpherson MD PCP - General 04/12/12 03/22/[address] [place] [phone] documented as of this encounter
--- OUTSIDE RECORDS SUMMARY | 2021-11-25 01:04 | XMS_ITS | Encounter Summary ---
:1955 Author Organization [facility] Address [address] [place] [address] Care Team Providers Name Role Phone Griselda Mcpherson MD Primary Care Provider Reason for Visit Reason Comments Follow-up Encounter Details Date Type Department Care Team Description 09/18/2014 Office Visit [facility] Greta Longo Ventr al hernia, General Surgery - MD Matthew unspecified, without [place] [address] mention of obstruction [address] or gangrene (Primary [address] [place], [place] Dx) [place] [address] [phone] Social History Tobacco Use Types Packs/Day Years Used Date Current Every Day Smoker 3 Alcohol Use Standard Drinks/Week Comments Yes 0 (1 standard drink = 0.6 oz pure alcoho l) Sex Assigned at Date Recorded Not on file documented as of this encounter Last Filed Vital Signs Vital Sign Reading Time Taken Comments Blood Pressure 118/80 09/18/2014 1603 EDT Pulse 93 09/18/2014 1603 EDT Temperature - - Respiratory Rate 16 09/18/2014 1603 EDT Oxygen Saturation - - Inhaled Oxygen Concentration - - Weight - - Height - - Body Mass Index - - documented in this encounter Progress Notes Greta Longo MD - 09/18/2014 1618 EDT PROBLEM: Followup after repair of incisional hernia. SUBJECTIVE: Mr Perez is roughly 6 weeks after undergoing repair of a large incisional hernia. He overall has been doing quite well up until last Monday. He was wearing a supportive belt and he took this off to do some activity and felt a pulling and tugging sensation and now has some discomfort in bilateral lower abdominal quadrant. This has improved throughout the week. He has had no changes in his bowel habits. He has had no nausea or vomiting. OBJECTIVE: On physical exam, his incision is healing very well. The seroma that was previously notedis markedly decreased. There is no evidence of hernia recurrence, but he is slightly sore around theoblique muscles on both lower abdominal quadrants. ASSESSMENT: Six weeks status post repair of an incisional hernia with overall good results. The patient is having some mild discomfort due to excessive activity. PLAN: 1. I reassured the patient there is no evidence of recurrent hernia. However, what he is feeling is some discomfort related to the scarring secondary to placing the mesh. He has a large piece of mesh placed and there are a fair amount of sutures in and this can often be quite uncomfortable in the first few months after surgery. 2. I did recommend the patient continue wearing a belt while he is at work. 3. In addition, I gave the patient some exercises to strengthen his core muscles. 4. I did reassure the patient he has no evidence of recurrent hernia and a lot of the symptoms he isexperiencing are consistent with healing and these should go away over the next 3 to 6 months. 5. The patient is reassured and I will leave his followup open-ended. He may return to see me if he has any concerns. documented in this encounter Plan of Treatment Not on filedocumented as of this encounter Visit Diagnoses Diagnosis Ventral hernia, unspecified, without men tion of obstruction or gangrene - Primary documented in this encounter Care Teams Ged Teacher Relationship Specialty Start Date End Date Griselda Mcpherson MD PCP - General 04/12/12 03/22/[address] [place] [phone] documented as of this encounter
--- OUTSIDE RECORDS SUMMARY | 2021-11-25 01:04 | XMS_ITS | Encounter Summary ---
:1955 Author Organization [facility] Address [address] [place] [address] Care Team Providers Name Role Phone Griselda Mcpherson MD Primary Care Provider Reason for Visit Reason Comments Difficulty Adjusting Encounter Details Date Type Department Care Team Description 06/17/2015 Office Visit [facility] Sharath Vega Adjust ment disorder Family Medicine - S, PhD with mixed disturbance [place] of emotions and [address] conduct (Primary Dx) [address] [place], [place] [phone] Social History Tobacco Use Types Packs/Day Years Used Date Current Every Day Smoker 3 Alcohol Use Standard Drinks/Week Comments Yes 0 (1 standard drink = 0.6 oz pure alcoho l) Sex Assigned at Date Recorded Not on file documented as of this encounter Progress Notes Sharath Vega, PhD - 06/17/2015 1634 EST FA [facility] PROGRESS NOTE Name: Chapin Perez : 1955 Symptoms/Issues Discussed: Adjustment issues ICD: [place] I: ADJUSTMENT DISORDER and ANXIETY DISORDER [place] II: - [place] III: Patient Active Problem List: Patient Active Problem List Diagnosis ??? 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 Ventral hernia without obstruction or gangrene ??? Stress disorder, acute ??? Tobacco abuse ??? Adjustment disorder with mixed disturbance of emotions and conduct [place] IV: Problems with primary supports and Problems with social environment Severity: Moderate [place] V: Global Assessment of Functioning 51-60 Moderate Difficulty in Functioning/Moderate Symptoms - Treatment Plan: Identify and reduce avoidance behaviors contributing negatively to mood Identify, implement and maintain healthy personal boundaries Identify and decrease cognitive distortions contributing negatively to mood and behavior Learn and implement positive coping skills Prognosis: Excellent Progress to Date: Excellent PHI: Minutes in session 39 Managed care session/count: - Rationale for therapeutic modality: Treatment is evidence supported CBT at the least frequency thatwill support the treatment goals No flowsheet data found. Medical Issues to Communicate Anxiety: Anxiety Relationships: Social Difficulties Lifestyle Changes Exercise - improved Stress Management - improved Social Support - improved Nutrition - same Subjective: Patient presented symptoms listed above. Objective: Improved Assessment (Goals and Progress Towards Goals): Mood and affect improved, Patient is activated and Self report that [...] Primary documented in this encounter Care Teams Receptionist Doctor'S Office Relationship Specialty Start Date End Date Griselda Mcpherson MD PCP - General 04/12/12 03/22/[address] [place] [address] [phone] documented as of this encounter
--- OUTSIDE RECORDS SUMMARY | 2021-11-25 01:04 | XMS_ITS | Encounter Summary ---
:1955 Author Organization [facility] Address [address] [place] [address] Care Team Providers Name Role Phone Griselda Mcpherson MD Primary Care Provider Reason for Visit Reason Comments Adjustment Disorder Encounter Details Date Type Department Care Team Description 01/14/2015 Office Visit [facility] Sharath Vega Adjust ment disorder Family Medicine - S, PhD with mixed disturbance [place] of emotions and [address] conduct (Primary Dx) [address] [place], [place] [phone] Social History Tobacco Use Types Packs/Day Years Used Date Current Every Day Smoker 3 Alcohol Use Standard Drinks/Week Comments Yes 0 (1 standard drink = 0.6 oz pure alcoho l) Sex Assigned at Date Recorded Not on file documented as of this encounter Progress Notes Sharath Vega, PhD - 01/14/2015 1602 EDT [facility] PROGRESS NOTE Name: Chapin Perez : 1955 Symptoms/Issues Discussed: Adjustment issues DSM-IV: [place] I: ADJUSTMENT DISORDER [place] II: - [place] III: Patient Active Problem List: Patient Active Problem List Diagnosis ??? 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 Ventral hernia, unspecified, without mention of obstruction or gangrene ??? Stress disorder, acute ??? Tobacco abuse ??? Adjustment disorder with mixed disturbance of emotions and conduct [place] IV: Problems with primary supports and Problems with social environment Severity: Moderate [place] V: Global Assessment of Functioning 51-60 Moderate Difficulty in Functioning/Moderate Symptoms - Treatment Plan: Identify and reduce avoidance behaviors contributing negatively to mood Identify, implement and maintain healthy personal boundaries Identify and decrease cognitive distortions contributing negatively to mood and behavior Prognosis: Good Progress to Date: Good PHI: Minutes in session 57 Managed care session/count: - Rationale for therapeutic modality: Treatment is evidence supported CBT at the least frequency thatwill support the treatment goals No flowsheet data found. Medical Issues to Communicate Anxiety: Anxiety Relationships: Couples Distress Lifestyle Changes Exercise - improved Stress Management [...] Primary documented in this encounter Care Teams Restorer Paper [employer] Prints Relationship Specialty Start Date End Date Griselda Mcpherson MD PCP - General 04/12/12 03/22/[address] [place] [phone] documented as of this encounter
--- OUTSIDE RECORDS SUMMARY | 2021-11-25 01:04 | XMS_ITS | Encounter Summary ---
:1955 Author Organization [facility] Address [address] [place] [address] Care Team Providers Name Role Phone Griselda Mcpherson MD Primary Care Provider Reason for Visit Reason Comments Difficulty Adjusting Encounter Details Date Type Department Care Team Description 12/02/2015 Office Visit [facility] Sharath Vega Adjust ment disorder Family Medicine - S, PhD with mixed disturbance [place] of emotions and [address] conduct (Primary Dx) [address] [place], [place] [phone] Social History Tobacco Use Types Packs/Day Years Used Date Current Every Day Smoker 3 Alcohol Use Standard Drinks/Week Comments Yes 0 (1 standard drink = 0.6 oz pure alcoho l) Sex Assigned at Date Recorded Not on file documented as of this encounter Progress Notes Sharath Vega, PhD - 12/02/2015 1707 EDT [facility] PROGRESS NOTE Name: Chapin Perez : 1955 Symptoms/Issues Discussed: Adjustment issues ICD: [place] I: ADJUSTMENT DISORDER [place] II: - [place] III: Patient Active Problem List: Patient Active Problem List Diagnosis ??? 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 Ventral hernia without obstruction or gangrene ??? Stress disorder, acute ??? Tobacco abuse ??? Adjustment disorder with mixed disturbance of emotions and conduct [place] IV: Problems with primary supports and Legal problems Severity: Moderate [place] V: Global Assessment of Functioning 51-60 Moderate Difficulty in Functioning/Moderate Symptoms - Treatment Plan: Summary of goals: Identify and reduce avoidance behaviors contributing negatively to mood Identify, implement and maintain healthy personal boundaries Identify and decrease cognitive distortions contributing negatively to mood and behavior Progress to date continued improvement Frequency and duration of service twice monthly, up to 2 years, Prognosis: Good Progress to Date: Excellent PHI: Minutes in session 53 Managed care session/count: - Rationale for therapeutic modality: Treatment is evidence supported CBT at the least frequency thatwill support the treatment goals and Supportive Psychotherapy is indicated to assist in the management of chronic illness in order to decrease risk of requiring more intensive service No flowsheet data found. Medical Issues to Communicate Anxiety: Anxiety Lifestyle Changes Exercise - improved Stress Management - improved Social Support - improved Nutrition - same Subjective: Patient presented symptoms listed above. Objective: Improved Assessment (Goals and Progress Towards Goals): Good follow through with assigned tasks, Mood and affect improved, Patient is activated [...] Primary documented in this encounter Care Teams Compounder Helper Relationship Specialty Start Date End Date Griselda Mcpherson MD PCP - General 04/12/12 03/22/[address] [place] [phone] documented as of this encounter
--- OUTSIDE RECORDS SUMMARY | 2021-11-25 01:04 | XMS_ITS | Encounter Summary ---
:1955 Author Organization [facility] Address [address] [place] [address] Care Team Providers Name Role Phone Griselda Mcpherson MD Primary Care Provider Reason for Visit Reason Comments Difficulty Adjusting Encounter Details Date Type Department Care Team Description 07/01/2015 Office Visit [facility] Sharath Vega Adjust ment disorder Family Medicine - S, PhD with mixed disturbance [place] of emotions and [address] conduct (Primary Dx) [address] [place], [place] [id number] Social History Tobacco Use Types Packs/Day Years Used Date Current Every Day Smoker 3 Alcohol Use Standard Drinks/Week Comments Yes 0 (1 standard drink = 0.6 oz pure alcoho l) Sex Assigned at Date Recorded Not on file documented as of this encounter Progress Notes Sharath Vega, PhD - 07/01/2015 1704 EST FA [facility] PROGRESS NOTE Name: Chapin Perez : 1955 Symptoms/Issues Discussed: Adjustment issues ICD: [place] I: ADJUSTMENT DISORDER [place] II: - [place] III: Patient Active Problem List: Patient Active Problem List Diagnosis ??? 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 Ventral hernia without obstruction or gangrene ??? Stress disorder, acute ??? Tobacco abuse ??? Adjustment disorder with mixed disturbance of emotions and conduct [place] IV: Problems with primary supports and Problems with social environment Severity: Moderate [place] V: Global Assessment of Functioning 51-60 Moderate Difficulty in Functioning/Moderate Symptoms - Treatment Plan: Identify and reduce avoidance behaviors contributing negatively to mood Identify, implement and maintain healthy personal boundaries Learn and implement positive coping skills Prognosis: Good Progress to Date: Excellent PHI: Minutes in session 29 Managed care session/count: - Rationale for therapeutic [...] Primary documented in this encounter Care Teams Texturing Machine Fixer Relationship Specialty Start Date End Date Griselda Mcpherson MD PCP - General 04/12/12 03/22/[address] [place] [address] [phone] documented as of this encounter
--- OUTSIDE RECORDS SUMMARY | 2021-11-25 01:04 | XMS_ITS | Encounter Summary ---
:1955 Author Organization [facility] Address [address] [place] [address] Care Team Providers Name Role Phone Griselda Mcpherson MD Primary Care Provider Reason for Visit Reason Comments Pre-op Exam Encounter Details Date Type Department Care Team Description 07/14/2014 Office Visit [facility] Greta Longo Ventr giovani hernia, unspecified, without mention of obstruction or gangrene (Primary Dx); General Surgery - MD Matthew Tobacco abuse; [place] [address] Stress disorder, acute [address] [place] [phone] Social History Tobacco Use Types Packs/Day Years Used Date Current Every Day Smoker 3 Alcohol Use Standard Drinks/Week Comments Yes 0 (1 standard drink = 0.6 oz pure alcoho l) Sex Assigned at Date Recorded Not on file documented as of this encounter Last Filed Vital Signs Vital Sign Reading Time Taken Comments Blood Pressure 134/83 07/14/2014 1405 EDT Pulse 90 07/14/2014 1405 EDT Temperature - - Respiratory Rate 16 07/14/2014 1405 EDT Oxygen Saturation - - Inhaled Oxygen Concentration - - Weight 111.1 kg (245 lb) 07/14/2014 1405 EDT Height - - Body Mass Index 35.15 08/05/2013 1457 EDT documented in this encounter Progress Notes Greta Longo MD - 07/14/2014 1522 EDT [facility] 07/14/2014 Chief Complaint Patient presents with ??? Pre-op Exam HPI: Mr Chris returns today to discuss repair of his ventral hernia. He was seen roughly one year ago with a very large hernia. This has been present for over 10 years, it has now increased in size andcausing more discomfort. The patient does wear an abdominal binder. When I met him last year, he expressed a significant for fear of surgery and I referred him to Vic Vega. He has undergone therapy for the last year and is prepared to undergo surgery, but does state he is still quite fearful and scared to of undergoing surgery. His hernia; however, has gotten a little larger and causing more discomfort. 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 He was motivated to try to quit smoking. He has done this in the past, but does admit that he has not been able to do so in the interim. He is hoping to discuss this with Dr Mcpherson and see if anything can help. No past medical history on file. No current outpatient prescriptions on file. No current facility-administered medications for this visit. No Known Allergies No past surgical history on file. Family History Problem Relation Age of Onset ??? Diabetes Mother ??? High Blood Pressure Mother ??? High Cholesterol Mother ??? Depression Mother ??? Cancer Father ??? Heart Disease Maternal Uncle ??? Heart Disease Maternal Grandfather History Social History ??? Marital Status: Single Spouse Name: N/A Number of Children: N/A ??? Years of Education: N/A Occupational History ??? Not on file. Social History Main Topics ??? Smoking status: Current Every Day Smoker -- 3.00 packs/day ??? Smokeless tobacco: Not on file ??? Alcohol Use: Yes ??? Drug Use: No ??? Sexual Activity: Not on file Other Topics Concern ??? Not on file Social History Narrative REVIEW OF SYMPTOMS: Review of Systems 08/05/2013 Cardiovascular Leg swelling Psychiatric Nervous/Anxious Gastrointestinal Heartburn;Nausea;Diarrhea;Constipation;Blanca Musculoskeletal Joint pain PHYSICAL EXAM: BP 134/83 Pulse 90 Resp 16 Wt 111.131 kg (245 lb) GENERAL APPEARANCE: alert, cooperative HEENT exam is unremarkable. Neck is without masses, bruits, or lymphadenopathy. Lungs are clear. Cardiac exam is regular in both rate and rhythm. Abdomen is soft, the umbilicus is slightly tender. He has a large hernia that herniate to the right but reducible with pressure. His defect is 5 cm in size.There are no masses or haptosplenomegaly. No evidence of inguinal hernia. Skin exam reveals no rashes. Groin exam reveals no lymphadenopathy. Extremities:venous stasis disease. Neurologic and vascular exams are grossly normal. anxious IMPRESSION: Large Ventral hernia, reducible with some pressure. PLAN: 1. First I discussed and reviewed with . Chapin Perez the pathophysiology of hernias. Also I provided additional written information. 2. I recommend elective repair. I have discussed with Mr. Perez the risks of the procedure includinghemorrhage, infection, injury to underlying bowel and associated nerves and/or recurrence. He understands and consents to the procedure. Another risk is seroma and may need placement of a drain. 3. In addition we reviewed the procedure and the postoperative expectations with regard to activity and recovery, as well as postoperative wound care. 4. He wishes to meet with anesthesia prior to surgery an I will arrange a consultation. He has arranged help at home and his work during the recovery process. But I did state he may need 4 weeks beforereturning to his usual activities. documented in this encounter Plan of Treatment Not on filedocumented as of this encounter Visit Diagnoses Diagnosis Ventral hernia, unspecified, without men tion of obstruction or gangrene - Primary Tobacco abuse Tobacco use disorder Stress disorder, acute Other acute reactions to stress documented in this encounter Care Teams Mill Controller Relationship Specialty Start Date End Date Griselda Mcpherson MD PCP - General 04/12/12 03/22/[address] [place] [phone] documented as of this encounter
--- OUTSIDE RECORDS SUMMARY | 2021-11-25 01:04 | XMS_ITS | Encounter Summary ---
:1955 Author Organization [facility] Address [address] [place] [address] Care Team Providers Name Role Phone Griselda Mcpherson MD Primary Care Provider Reason for Visit Reason Comments Difficulty Adjusting Encounter Details Date Type Department Care Team Description 03/11/[address] Office [address] [facility] Sharath Vega Adjust ment disorder Family Medicine - S, PhD with mixed disturbance Thompson of emotions and [address] conduct (Primary Dx) [address] [place], [place] [id number] Social History Tobacco Use Types Packs/Day Years Used Date Current Every Day Smoker 3 Alcohol Use Standard Drinks/Week Comments Yes 0 (1 standard drink = 0.6 oz pure alcoho l) Sex Assigned at Date Recorded Not on file documented as of this encounter Progress Notes Sharath Veag, PhD - 03/11/2015 1554 EST [facility] PROGRESS NOTE Name: Chapin Perez : 1955 Symptoms/Issues Discussed: Adjustment issues DSM-IV: Franklin I: ADJUSTMENT DISORDER Franklin II: - Franklin III: Patient Active Problem List: Patient Active Problem List Diagnosis ??? 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 Ventral hernia without obstruction or gangrene ??? Stress disorder, acute ??? Tobacco abuse ??? Adjustment disorder with mixed disturbance of emotions and conduct Franklin IV: Problems with primary supports and Problems with social environment Severity: Moderate Franklin V: Global Assessment of Functioning 51-60 Moderate Difficulty in Functioning/Moderate Symptoms - Treatment Plan: Identify and reduce avoidance behaviors contributing negatively to mood Identify, implement and maintain healthy personal boundaries Learn and implement positive coping skills Learn and utilize emotion regulation strategies Prognosis: Good Progress to Date: Excellent PHI: Minutes in session 54 Managed care session/count: - Rationale for therapeutic modality: Treatment is evidence supported CBT at the least frequency thatwill support the treatment goals No flowsheet data found. Medical Issues to Communicate Anxiety: Anxiety and Health Concerns Relationships: Social Difficulties Lifestyle Changes Exercise - [...] Primary documented in this encounter Care Teams Appliance Parts Counter Clerk Relationship Specialty Start Date End Date Griselda Mcpherson MD PCP - General 04/12/12 03/22/[address] [place] [phone] documented as of this encounter
--- OUTSIDE RECORDS SUMMARY | 2021-11-25 01:04 | XMS_ITS | Encounter Summary ---
:1955 Author Organization [facility] Address [address] [place] [address] Care Team Providers Name Role Phone Griselda Mcpherson MD Primary Care Provider Reason for Visit Reason Comments Stress Encounter Details Date Type Department Care Team Description 12/21/2015 Office Visit [facility] Sharath Vega Adjust ment disorder Family Medicine - S, PhD with mixed disturbance [place] of emotions and [address] conduct (Primary Dx) [address] [place], [place] [phone] Social History Tobacco Use Types Packs/Day Years Used Date Current Every Day Smoker 3 Alcohol Use Standard Drinks/Week Comments Yes 0 (1 standard drink = 0.6 oz pure alcoho l) Sex Assigned at Date Recorded Not on file documented as of this encounter Progress Notes Sharath Vega, PhD - 12/21/2015 1602 EDT FA [facility] PROGRESS NOTE Name: Chapin Perez : 1955 Symptoms/Issues Discussed: Adjustment issues ICD: [place] I: ADJUSTMENT DISORDER [place] II: - [place] III: Patient Active Problem List: Patient Active Problem List Diagnosis ??? 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 Ventral hernia without obstruction or gangrene ??? Stress disorder, acute ??? Tobacco abuse ??? Adjustment disorder with mixed disturbance of emotions and conduct [place] IV: Problems with primary supports and Problems with social environment Severity: Moderate [place] V: Global Assessment of Functioning 51-60 Moderate Difficulty in Functioning/Moderate Symptoms - Treatment Plan: Summary of Goals Identify and reduce avoidance behaviors contributing negatively to mood Identify, implement and maintain healthy personal boundaries Identify and decrease cognitive distortions contributing negatively to mood and behavior Progress to date: significant dearousal to generalizing into multiple settings Frequency and duration of service twice monthly, up to 2 years, Treatment is evidence supported CBT at the least frequency that will support the treatment goals andSupportive Psychotherapy is indicated to assist in the management Progress to date Managing stressors effectively, though there are multiple stressors to manage. Frequency and duration of service Twice per month upto 2 years Treatment is evidence supported CBT at the least frequency that will support the treatment goals andSupportive Psychotherapy is indicated to assist in the management of chronic illness in order to improve coping Prognosis: Good Progress to Date: Good PHI: Minutes in session 53 Managed care session/count: - Rationale for therapeutic modality: Treatment is evidence supported CBT at the least frequency thatwill support the treatment goals and Supportive Psychotherapy is indicated to assist in the management of chronic illness in order to improve coping No flowsheet data found. Medical Issues to Communicate Anxiety: Anxiety and Health Concerns Lifestyle Changes Exercise - same Stress Management - improved Social Support - improved Nutrition - same Subjective: Patient presented symptoms listed above. Objective: Improved Assessment (Goals and Progress Towards Goals): Mood and affect improved and Patient is activated Patient Reported Outcomes: Problems/symptoms: Some progress Mutually agreed to tasks: Were partially accomplished Updated Treatment Plan: Maintain plan identified above documented in this encounter Plan of Treatment Not on filedocumented as of this encounter Visit Diagnoses Diagnosis Adjustment disorder with mixed disturban ce of emotions and conduct - Primary documented in this encounter Care Teams Lap Hand Tool Relationship Specialty Start Date End Date Griselda Mcpherson MD PCP - General 04/12/12 03/22/[address] [place] [phone] documented as of this encounter
--- OUTSIDE RECORDS SUMMARY | 2021-11-25 01:04 | XMS_ITS | Encounter Summary ---
:1955 Author Organization [facility] Address [address] [place] [address] Care Team Providers Name Role Phone Griselda Mcpherson MD Primary Care Provider Reason for Visit Reason Comments Pain Encounter Details Date Type Department Care Team Description 01/29/2014 Office Visit [facility] Sharath Vega Ventra l hernia, Family Medicine - S, PhD unspecifie d, without [place] mention of obstruction [address] or gangrene (Primary [address] Dx) [place], [place] [address] Social History Tobacco Use Types Packs/Day Years Used Date Current Every Day Smoker 3 Alcohol Use Standard Drinks/Week Comments Yes 0 (1 standard drink = 0.6 oz pure alcoho l) Sex Assigned at Date Recorded Not on file documented as of this encounter Progress Notes Sharath Vega, PhD - 01/29/2014 1658 EDT FA [facility] PROGRESS NOTE Name: Chapin Perez : 1955 Symptoms/Issues Discussed: Chronic pain DSM-IV: [place] I: 316.0 [place] II: - [place] III: Patient Active Problem List: Patient Active Problem List Diagnosis ??? 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 Ventral hernia, unspecified, without mention of obstruction or gangrene ??? Stress disorder, acute [place] IV: Problems with primary supports and Problems with social environment Severity: Moderate [place] V: Global Assessment of Functioning 51-60 Moderate Difficulty in Functioning/Moderate Symptoms - Current GAF: 56 Treatment Plan: Identify and reduce avoidance behaviors contributing negatively to mood Identify and decrease cognitive distortions contributing negatively to mood and behavior Learn and implement positive coping skills Learn and utilize emotion regulation strategies Prognosis: Good Progress to Date: Good PHI: Minutes in session 36 Managed care session/count: - Rationale for therapeutic modality: Treatment is evidence supported CBT at the least frequency thatwill support the treatment goals GAF: 56 PHQ: TATIANA: AUDIT: Medical Issues to Communicate Anxiety: Health Concerns Lifestyle Changes Exercise - worse Stress Management - improved Social Support - worse Nutrition - n/a Subjective: Patient presented symptoms listed above. Objective: Improved Assessment (Goals and Progress Towards Goals): Patient is activated Patient Reported Outcomes: Problems/symptoms: Remain the same Mutually agreed to tasks: Were partially accomplished Updated Treatment Plan: Maintain plan identified above documented in this encounter Plan of Treatment Not on filedocumented as of this encounter Visit Diagnoses Diagnosis Ventral hernia, unspecified, without men tion of obstruction or gangrene - Primary documented in this encounter Care Teams Process Control Tech Relationship Specialty Start Date End Date Griselda Mcpherson MD PCP - General 04/12/12 03/22/[address] [place] [phone] documented as of this encounter
--- OUTSIDE RECORDS SUMMARY | 2021-11-25 01:04 | XMS_ITS | Encounter Summary ---
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 XR LUMBAR SPINE 08/30/2016 16:29 Results for this BENDING VIEWS, 2 OR EDT procedur e are in 3 VIEWS the results section. documented in this encounter Results MR LUMBAR SPINE WO CONTRAST (08/30/2016 18:10 EDT) Specimen Narrative [facility] - 08/30/2016 18:16 EDT ? EXAM: MAGNETIC RESONANCE IMAGING/LUMBAR S EX. D/ (6169) ? CLINICAL INFORMATION: ? M54.5 LOW BACK PAIN ? 100% RIGHT LOWER EXTREMITY PAIN I N L5 ? DISTRIBUTION ? R/O L4-5 HNP ? INDICATION: M54.5 LOW BACK PAIN: 100% RIGHT LOWER EXTREMITY PAIN IN ? L5 ??LOW BACK PAIN ? TECHNIQUE: ??Multiplanar multiseq uence MR imaging of the lumbar spine ? was obtained without contrast. ? COMPARISON: None. ? FINDINGS: The lumbar spine is wel l aligned. The lumbar vertebral ? bodies maintain normal height. Th e paraspinal soft tissues are normal ? in appearance. The tip of the con us medullaris terminates at the L1 ? vertebral body level. ? At the L5/S1 level, there is a sm all disc bulge with endplate ? osteophytes and degenerative face t disease. There is mild left and ? mild/moderate right neural forami nal narrowing. There is mild spinal ? canal narrowing. ? At the L4/5 level, there is a dis c bulge with a superimposed right ? paracentral disc extrusion with m oderate/severe spinal canal ? narrowing. The disc material appe ars to abut the right L5 nerve root ? as it enters the right lateral re cess within the moderate/severely ? narrowed spinal canal. There is e marisol degenerative facet disease and ? moderate bilateral neural foramin al narrowing. ? At the L3/4 level, there is a sma ll disc bulge and degenerative facet ? disease with mild spinal canal an d mild bilateral neural foraminal ? narrowing. ? At the L2/3 level, there is a oleg y small disc bulge and mild spinal ? canal narrowing. The neural valarie en are patent. ? At the L1/2 level, the spinal can al and neural foramen are patent. ? IMPRESSION: ? 1. Multilevel lower lumbar spine degenerative disc and facet disease. ? This includes an L4/5 disc bulge with a superimposed right ? paracentral disc extrusion with m oderate/severe spinal canal ? narrowing. The disc extrusion marshall ears to abut the right L5 nerve root ? as it enters the right lateral re cess. ? PAGE 1 ? Bri d Report ? (CONTINUED) ? Additional findings as discussed above. ? REPORT SIGNED IN OTHER VENDOR SYSTEM 08/30/2016 ?Reported B y: Ramon Graff MD ? CC: ? Transcribed Date/Time: 08/30/2016 (1816) ? Knitting Teacher: ? Printed Date/Time: 10/20/2018 (12 50) ? PAGE 2 ? Bri d Report ? Procedure Note Ramon Graff MD - 03/13/2019 EXAM: MAGNETIC RESONANCE IMAGING/LUMBAR S EX. D/ ([id number]) CLINICAL INFORMATION: M54.5 LOW BACK PAIN 100% RIGHT LOWER EXTREMITY PAIN IN L5 DISTRIBUTION R/O L4-5 HNP INDICATION: M54.5 LOW BACK PAIN: 100% R IGHT LOWER EXTREMITY PAIN IN L5 LOW BACK PAIN TECHNIQUE: Multiplanar multisequence MR imaging of the lumbar spine was obtained without contrast. COMPARISON: None. FINDINGS: The lumbar spine is well alig barry. The lumbar vertebral bodies maintain normal height. The para spinal soft tissues are normal in appearance. The tip of the conus med ullaris terminates at the L1 vertebral body level. At the L5/S1 level, there is a small di sc bulge with endplate osteophytes and degenerative facet dise ase. There is mild left and mild/moderate right neural foraminal na rrowing. There is mild spinal canal narrowing. At the L4/5 level, there is a disc bulg e with a superimposed right paracentral disc extrusion with moderat e/severe spinal canal narrowing. The disc material appears to abut the right L5 nerve root as it enters the right lateral recess w ithin the moderate/severely narrowed spinal canal. There is early d egenerative facet disease and moderate bilateral neural foraminal janelle rowing. At the L3/4 level, there is a small dis c bulge and degenerative facet disease with mild spinal canal and mild bilateral neural foraminal narrowing. At the L2/3 level, there is a very smal l disc bulge and mild spinal canal narrowing. The neural foramen are patent. At the L1/2 level, the spinal canal and neural foramen are patent. IMPRESSION: 1. Multilevel lower lumbar spine degene rative disc and facet disease. This includes an L4/5 disc bulge with a superimposed right paracentral disc extrusion with moderat e/severe spinal canal narrowing. The disc extrusion appears t o abut the right L5 nerve root as it enters the right lateral recess. PAGE 1 Signed Report (CONTINUED) Additional findings as discussed above. REPORT SIGNED IN OTHER VENDOR SYSTEM 08/30/2016 Reported By: Ramon Graff MD CC: Transcribed Date/Time: 08/30/2016 (4207 ) Knitting Teacher: Printed Date/Time: 10/20/2018 (8384) PAGE 2 Signed Report Performing Organization Address City/State/ZIP Code Phon e Number [facility] XR LUMBAR SPINE BENDING VIEWS, 2 OR 3 VIEWS (08/30/2016 16:29 EDT) Specimen Narrative [facility] - 08/30/2016 16:38 EDT ? EXAM: RADIOLOGY/LS SPINE FLEX/EXT ONLY 2- EX. D/ ([id number]) ? CLINICAL INFORMATION: ? M54.5 LOW BACK PAIN ? 100% RIGHT LOWER EXTREMITY PAIN I N L5 ? DISTRIBUTION ? R/O L4-5 HNP ? INDICATION: M54.5 LOW BACK PAIN: 100% RIGHT LOWER EXTREMITY PAIN IN ? L5 LOW BACK PAIN ? TECHNIQUE: 4 view lumbar spine wi th flexion-extension views. ? COMPARISON: 05/19/2016. ? FINDINGS: ? Mild disc space narrowing spans t he lumbar spine. Small endplate ? osteophytes are seen. There is ea rly hypertrophic facet disease ? throughout the lumbar region. No gross subluxation with flexion or ? extension is seen. ? IMPRESSION: ? 1. Multilevel lumbar spine degene rative disc and facet disease. ? 2. No gross subluxation with flex ion or extension detected. ? REPORT SIGNED IN OTHER VENDOR SYSTEM 08/30/2016 ?Reported B y: Ramon Graff MD ? CC: ? Transcribed Date/Time: 08/30/2016 (3724) ? Knitting Teacher: ? Printed Date/Time: 10/20/2018 (12 50) ? PAGE 1 ? Bri d Report ? Procedure Note Ramon Graff MD - 03/13/2019 EXAM: RADIOLOGY/LS SPINE FLEX/EXT ONLY 2- EX. D/ (3095) CLINICAL INFORMATION: M54.5 LOW BACK PAIN 100% RIGHT LOWER EXTREMITY PAIN IN L5 DISTRIBUTION R/O L4-5 HNP INDICATION: M54.5 LOW BACK PAIN: 100% R IGHT LOWER EXTREMITY PAIN IN L5 LOW BACK PAIN TECHNIQUE: 4 view lumbar spine with fle xion-extension views. COMPARISON: 05/19/2016. FINDINGS: Mild disc space narrowing spans the lum bar spine. Small endplate osteophytes are seen. There is early hy pertrophic facet disease throughout the lumbar region. No gross subluxation with flexion or extension is seen. IMPRESSION: 1. Multilevel lumbar spine degenerative disc and facet disease. 2. No gross subluxation with flexion or extension detected. REPORT SIGNED IN OTHER VENDOR SYSTEM 08/30/2016 Reported By: Ramon Graff MD CC: Transcribed Date/Time: 08/30/2016 (8137 ) Knitting Teacher: Printed Date/Time: 10/20/2018 (7381) PAGE 1 Signed Report Performing Organization Address City/State/ZIP Code Phon e Number [facility] documented in this encounter Visit Diagnoses Not on filedocumented in this encounter Care Teams Locksmith Helper Relationship Specialty Start Date End Date Griselda Mcpherson MD PCP - General 04/12/12 03/22/18 [address] [place] [phone] French Mcguire ND PCP - General 03/23/[address] [phone] documented as of this encounter
--- OUTSIDE RECORDS SUMMARY | 2021-11-25 01:04 | XMS_ITS | Encounter Summary ---
:1955 Author Organization [facility] Address [address] [place] [address] Care Team Providers Name Role Phone Griselda Mcpherson MD Primary Care Provider French Mcguire ND Primary Care Provider Encounter Details Date Type Department Care Team Description 07/24/2014 Historical Results [facility] - [place] Only [facility] Radiology A, MANAGER OF ENTERPRISE Results [address] [facility] [address] [place] [address] [phone] (Wo rk) Social History Tobacco Use Types [...] Name Priority Date/Time Associated Diagnosis Comme nts CT CHEST LOW DOSE 07/24/2014 14:46 Result s for this LUNG SCREENING EDT procedure are in the results section. documented in this encounter Results CT CHEST LOW DOSE LUNG SCREENING (07/24/2014 14:46 EDT) Specimen Narrative [facility] - 07/24/2014 16:04 EDT ? EXAM: CAT SCAN/CHEST LOW DOSE LUNG SCREEN EX. D/ (1446) ? CLINICAL INFORMATION: ? 34 PACK YEAR HX, ASYMPTOMATIC, CU RRENT SMOKER ? CHEST WITHOUT CONTRAST 07/24/2014 3:12 PM ? Signs and Symptoms/Comments: 34 P ACK YEAR HX, ASYPMTOMATIC, CURRENT ? SMOKER. ? Technique: ? A single breath-hold helical CT a cquisition was performed through the ? chest on a multidetector-row scan ner with a ? reconstructed slice thickness of 3 mm and retrospectively ? reconstructed 0.9 mm thick sectio ns with 0.45 mm overlapping ? intervals. The scans were obtaine d from the lung apices through the ? bases without IV contrast. Dose w as adjusted between ? 1.0 and 1.5 milliSieverts for low dose screening purposes. Scans were ? reviewed on a dedicated PACS work station for ? analysis. ? Comparison: ? None ? Findings: ? Lung Screening Specific (LungRADS ): Category 1 (no nodules or ? definitely benign nodules) ? *No nodules or nodules with benig n specific calcifications. ? Potentially Significant Incidenta ls (LungRADS Category S): None ? Pulmonary Incidentals: Chronic br onchitis, moderate centrilobular and ? paraseptal emphysema and mild per ipheral reticulations within lungs, ? also felt to reflect smoking-rela julian interstitial lung disease. Linear ? region of subsegmental atelectasi s and/or scarring within the right ? lower lobe (#581). ? Other incidentals:Coronary athero sclerosis. Low-density lesion within ? segment 7 of the liver, statistic ally likely benign. ? Nodular thickening of both adrena l glands. ? Impression: ? 1. LungRADS category 1 (no nodule s or definitely benign nodules): ? 2. LungRADS category S: Negative, no new or potentially significant ?incidental findings requirin g urgent additional evaluation. ? 3. Please see above for incidenta l findings. ? RECOMMENDATIONS: Continued routin e annual low dose CT lung screening. ? Suggest next low dose CT exam on or around July 2015. ? This report utilizes the CT Lung Screening Reporting and Data System ? (ACR LungRADS version 1.0) as bel ow: ? Category 0: Incomplete (part or a ll of lung cannot be evaluated, or ? prior chest CT being located for comparison) ? Category 1: Negative (no nodules or definitely benign nodules) ? Category 2: Benign appearance or behavior (nodules with very low ? PAGE 1 ? Bri d Report ? (CONTINUED) ? likelihood of b ecoming a clinically active cancer, risk of ? malignancy <1%) ? Category 3: Probably benign (prob ably benign finding - short term ? follow up sugge sted, risk of malignancy 1-2%) ? Category 4: Suspicious (additiona l diagnostic testing or tissue ? sampling recomm ended) ? Modifiers to Categories 1-4: ? Category C: Prior diagnosis of juice ng cancer returning to screening ? Category S: Potentially significa nt ancillary finding requiring urgent ? additional eval uation. ? Dictated By: ROB HOLLINGSWORTH MD ? Signed By: ROB HOLLINGSWORTH MD 015 ? Authenticated By: ROB HOLLINGSWORTH MD 07/24/2014 ?Reported B y: Rob Hollingsworth MD ? CC: ? Transcribed Date/Time: 07/24/2014 (1604) ? Greenhouse Superintendent: CONNOR ? Printed Date/Time: 10/09/2018 (11 08) ? PAGE 2 ? Bri d Report ? Procedure Note Rob Hollingsworth MD - 03/12/2019 EXAM: CAT SCAN/CHEST LOW DOSE LUNG SCRE EN EX. D/ (1446) CLINICAL INFORMATION: 34 PACK YEAR HX, ASYMPTOMATIC, CURRENT SMOKER CHEST WITHOUT CONTRAST 07/24/2014 3:12 P M Signs and Symptoms/Comments: 34 PACK YE AR HX, ASYPMTOMATIC, CURRENT SMOKER. Technique: A single breath-hold helical CT acquisi tion was performed through the chest on a multidetector-row scanner wi th a reconstructed slice thickness of 3 mm a nd retrospectively reconstructed 0.9 mm thick sections wit h 0.45 mm overlapping intervals. The scans were obtained from the lung apices through the bases without IV contrast. Dose was adj usted between 1.0 and 1.5 milliSieverts for low dose screening purposes. Scans were reviewed on a dedicated PACS workstatio n for analysis. Comparison: None Findings: Lung Screening Specific (LungRADS): Cat egory 1 (no nodules or definitely benign nodules) *No nodules or nodules with benign spec ific calcifications. Potentially Significant Incidentals (Juice ngRADS Category S): None Pulmonary Incidentals: Chronic bronchit is, moderate centrilobular and paraseptal emphysema and mild periphera l reticulations within lungs, also felt to reflect smoking-related in terstitial lung disease. Linear region of subsegmental atelectasis and/ or scarring within the right lower lobe (#581). Other incidentals:Coronary atherosclero sis. Low-density lesion within segment 7 of the liver, statistically l ikely benign. Nodular thickening of both adrenal glan ds. Impression: 1. LungRADS category 1 (no nodules or d efinitely benign nodules): 2. LungRADS category S: Negative, no ne w or potentially significant incidental findings requiring urgent ad ditional evaluation. 3. Please see above for incidental find ings. RECOMMENDATIONS: Continued routine dell al low dose CT lung screening. Suggest next low dose CT exam on or anali und July 2015. This report utilizes the CT Lung Screen ing Reporting and Data System (ACR LungRADS version 1.0) as below: Category 0: Incomplete (part or all of lung cannot be evaluated, or prior chest CT being located for compar lyudmila) Category 1: Negative (no nodules or def initely benign nodules) Category 2: Benign appearance or behavi or (nodules with very low PAGE 1 Signed Report (CONTINUED) likelihood of becoming a clinically act yamile cancer, risk of malignancy <1%) Category 3: Probably benign (probably b enign finding - short term follow up suggested, risk of malignancy 1-2%) Category 4: Suspicious (additional diag nostic testing or tissue sampling recommended) Modifiers to Categories 1-4: Category C: Prior diagnosis of lung can cer returning to screening Category S: Potentially significant anc illary finding requiring urgent additional evaluation. Dictated By: ROB HOLLINGSWORTH MD Signed By: ROB HOLLINGSWORTH MD 07/24/2014 Authenticated By: ROB HOLLINGSWORTH MD 2014 Reported By: Rob Hollingsworth MD CC: Transcribed Date/Time: 07/24/2014 (8325 ) Greenhouse Superintendent: CONNOR Printed Date/Time: 10/09/2018 (7959) PAGE 2 Signed Report Performing Organization Address City/State/ZIP Code Phon e Number [facility] documented in this encounter Visit Diagnoses Not on filedocumented in this encounter Care Teams Aligner Relationship Specialty Start Date End Date Griselda Mcpherson MD PCP - General 04/12/12 03/22/18 [address] [place] [phone] French Mcguire ND PCP - General 03/23/[address] [address] documented as of this encounter
--- OUTSIDE RECORDS SUMMARY | 2021-11-25 01:04 | XMS_ITS | Encounter Summary ---
:1955 Author Organization [facility] Address [address] [place] [address] Care Team Providers Name Role Phone French Mcguire ND Primary Care Provider Encounter Details Date Type Department Care Team Description 09/14/2018 Historical Results [facility] - Darlin Ferreira MD Only [facility] - Main [facility] [address] [facility] 130 [facility] [address] [place] [address] [place] [phone] Social History Tobacco Use Types Packs/Day [...] Name Priority Date/Time Associated Diagnosis Comme nts CYTOLOGY Routine 09/14/2018 8:31 EDT Results for this (NON-GYNECOLOGIC procedure a re in INCLUDING FLUIDS the results AND FINE NEEDLE section. ASPIRATION)- ORDER ONLY documented in this encounter Results CYTOLOGY (NON-GYNECOLOGIC INCLUDING FLUIDS AND FINE NEEDLE ASPIRATION)- ORDER ONLY (09/14/2018 8:31 EDT) Specimen Narrative [facility] - 019 14:07 EDT Type in Source of specimen? VOID Name: ZE PEREZ ?: 55 ?Age/Sex: 63/M ?Unit#: [id number] ? Loc: BUR ? Status: REG POV ?? Reg Date: 09/14/18 ? Pt.Phone Number : ? Specimen: [id number] ? DEBBY MORGAN: KENDRA ?Spec Date:09/14/18 ? Physician Copies: ?Sudheer Ferreira MD ? Tissues: A ?? Urine (VOIDED) ? Griselda Mcpherson MD ?? CPT: 83622 ?? Units: ??1 ?? NON PRACTICAL NURSING INSTRUCTOR CYTOLOGY DIAGNOSIS URINE, VOIDED: - Negative for high grade urothelial car cinoma. - Reactive urothelial cells present. - Background red blood cells noted. ? SPECIMEN DESCRIPTION ? 20mL of cloudy yellow fluid were rec eived and processed by ?? concentration technique. Signed ____(signature on file)____ Dominique Abbasi M.D. 09/17/18 By the signature above, the attending ph ysician certifies that he/she has personally conducted a gross and/or microscopic exa mination of the described specimens and rendered or confirmed the above diagnosi s. Test Performed by [facility], [address] [place] [address] Historical Guide: Dominique Benavidez MD PHD Performing Organization Address City/State/ZIP Code Phon e Number [facility] [address] [place] [address] LAB documented in this encounter Visit Diagnoses Not on filedocumented in this encounter Care Teams Erecting Crane Operator Relationship Specialty Start Date End Date French Mcguire ND PCP - General 03/23/18 [address] [place] [phone] documented as of this encounter
--- OUTSIDE RECORDS SUMMARY | 2021-11-25 01:04 | XMS_ITS | Encounter Summary ---
:1955 Author Organization [facility] Address [address] [place] [address] Care Team Providers Name Role Phone Griselda Mcpherson MD Primary Care Provider Reason for Visit Reason Comments Adjustment Disorder Encounter Details Date Type Department Care Team Description 06/22/2016 Office Visit [facility] Sharath Vega Adjust ment disorder Family Medicine - S, PhD with mixed disturbance [place] of emotions and [address] conduct (Primary Dx) [address] [place], [place] [id number] Social History Tobacco Use Types Packs/Day Years Used Date Current Every Day Smoker 3 Alcohol Use Standard Drinks/Week Comments Yes 0 (1 standard drink = 0.6 oz pure alcoho l) Sex Assigned at Date Recorded Not on file documented as of this encounter Progress Notes Sharath Vega, PhD - 06/22/2016 1500 EST [facility] PROGRESS NOTE Name: Chapin Perez : 1955 Symptoms/Issues Discussed: Adjustment issues ICD: Summit I: ADJUSTMENT DISORDER Summit II: - Summit III: Patient Active Problem List: Patient Active Problem List Diagnosis ??? 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 Ventral hernia without obstruction or gangrene ??? Stress disorder, acute ??? Tobacco abuse ??? Adjustment disorder with mixed disturbance of emotions and conduct Summit IV: Problems with primary supports Severity: Moderate Summit V: Global Assessment of Functioning 61-70 Some Difficulty in Functioning/Mild Symptoms - History of Presenting Problem Location: Patient's Home, Community and Worksite Impact on Quality of Life: Minor Impact Severity: Frequent Presence Duration: Longer than 1 Year Timing: No Specific Time Context: With Specific People and With Family Members Modifying Factors: Mood, When Stressed and When Tired Associated Signs and Symptoms: Changes in: Emotional State and Behavior Treatment Plan Summary of Goals: Identify and reduce avoidance behaviors contributing negatively to mood Identify, implement and maintain healthy personal boundaries Identify and decrease cognitive distortions contributing negatively to mood and behavior Progress to Date: Good follow through with assigned tasks, Mood and affect improved, Patient is activated and Self report that problem is improving Frequency and Duration of Service: Twice monthly for up to 2 years. Session length up to 45 minutes Rationale for Therapeutic Modality: Treatment is evidence supported CBT at the least frequency that will support the treatment goals Prognosis: Good PHI: Minutes in session 45 Managed care session/count: - No flowsheet data found. Medical Issues to Communicate Anxiety: Anxiety Lifestyle Changes Exercise - improved Stress Management - improved Social Support - improved Nutrition - same Subjective: Patient presented symptoms listed above. Objective: Improved Over all function good. Reolationship stroong, work going well, modest life adjustment issues Patient Reported Outcomes: Problems/symptoms: Some progress Mutually agreed to tasks: Were fully accomplished Updated Treatment Plan: Maintain plan identified above documented in this encounter Plan of Treatment Not on filedocumented as of this encounter Visit Diagnoses Diagnosis Adjustment disorder with mixed disturban ce of emotions and conduct - Primary documented in this encounter Care Teams District Sales Leader Relationship Specialty Start Date End Date Griselda Mcpherson MD PCP - General 04/12/12 03/22/[address] [place] [phone] documented as of this encounter
--- OUTSIDE RECORDS SUMMARY | 2021-11-25 01:04 | XMS_ITS | Encounter Summary ---
:1955 Author Organization [facility] Address [address] [place] [address] Care Team Providers Name Role Phone Griselda Mcpherson MD Primary Care Provider Reason for Visit Reason Comments Difficulty Adjusting Encounter Details Date Type Department Care Team Description 04/29/2015 Office Visit [facility] Sharath Vega Adjust ment disorder Family Medicine - S, PhD with mixed disturbance [place] of emotions and [address] conduct (Primary Dx) [address] [place], [place] [id number] Social History Tobacco Use Types Packs/Day Years Used Date Current Every Day Smoker 3 Alcohol Use Standard Drinks/Week Comments Yes 0 (1 standard drink = 0.6 oz pure alcoho l) Sex Assigned at Date Recorded Not on file documented as of this encounter Progress Notes Sharath Vega, PhD - 04/29/2015 1554 EST [facility] PROGRESS NOTE Name: Chapin Perez : 1955 Symptoms/Issues Discussed: Adjustment issues DSM-IV: Realitos I: ADJUSTMENT DISORDER Realitos II: - Realitos III: Patient Active Problem List: Patient Active Problem List Diagnosis ??? 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 Ventral hernia without obstruction or gangrene ??? Stress disorder, acute ??? Tobacco abuse ??? Adjustment disorder with mixed disturbance of emotions and conduct Realitos IV: Problems with primary supports Severity: Moderate Realitos V: Global Assessment of Functioning 51-60 Moderate Difficulty in Functioning/Moderate Symptoms - Treatment Plan: Identify and reduce avoidance behaviors contributing negatively to mood Identify, implement and maintain healthy personal boundaries Prognosis: Good Progress to Date: Excellent PHI: Minutes in session 32 Managed care session/count: - Rationale for therapeutic modality: Treatment is evidence supported CBT at the least frequency thatwill support the treatment goals No flowsheet data found. Medical Issues to Communicate Self-Image: Self-Doubt Lifestyle Changes Exercise - same Stress Management [...] Primary documented in this encounter Care Teams Mill Tender Second Operator Relationship Specialty Start Date End Date Griselda Mcpherson MD PCP - General 04/12/12 03/22/[address] [place] [phone] documented as of this encounter
--- OUTSIDE RECORDS SUMMARY | 2021-11-25 01:04 | XMS_ITS | Encounter Summary ---
:1955 Author Organization [facility] Address [address] [place] [address] Care Team Providers Name Role Phone Griselda Mcpherson MD Primary Care Provider Encounter Details Date Type Department Care Team Description 09/04/2013 Hospital Encounter [facility] - Unknown, [facility] [phone] [place] [address] (Work) [place], [place] [phone] Social History Tobacco Use Types Packs/Day Years Used Date Current Every Day Smoker 3 Alcohol Use Standard Drinks/Week Comments Yes 0 (1 standard drink = 0.6 oz pure alcoho l) Sex Assigned at Date Recorded Not on file documented as of this encounter Discharge Disposition Disposition Code Departure Means Destination Home or Self Jail documented in this encounter Plan of Treatment Not on filedocumented as of this encounter Visit Diagnoses Not on filedocumented in this encounter Care Teams Acute Care Physical Therapist Relationship Specialty Start Date End Date Griselda Mcpherson MD PCP - General 04/12/12 03/22/[address] [place] [phone] documented as of this encounter
--- OUTSIDE RECORDS SUMMARY | 2021-11-25 01:04 | XMS_ITS | Encounter Summary ---
:1955 Author Organization [facility] Address [address] [place] [address] Care Team Providers Name Role Phone Griselda Mcpherson MD Primary Care Provider Reason for Visit Reason Comments Difficulty Adjusting Encounter Details Date Type Department Care Team Description 12/08/2014 Office Visit [facility] Sharath Vega Adjust ment disorder Family Medicine - S, PhD with mixed disturbance [place] of emotions and [address] conduct (Primary Dx) [address] [place], [place] [address] Social History Tobacco Use Types Packs/Day Years Used Date Current Every Day Smoker 3 Alcohol Use Standard Drinks/Week Comments Yes 0 (1 standard drink = 0.6 oz pure alcoho l) Sex Assigned at Date Recorded Not on file documented as of this encounter Progress Notes Sharath Vega, PhD - 12/08/2014 1732 EDT [facility] PROGRESS NOTE Name: Chapin Perez : 1955 Symptoms/Issues Discussed: Adjustment issues DSM-IV: [place] I: ADJUSTMENT DISORDER Lancaster II: - Lancaster III: Patient Active Problem List: Patient Active Problem List Diagnosis ??? 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 Ventral hernia, unspecified, without mention of obstruction or gangrene ??? Stress disorder, acute ??? Tobacco abuse ??? Adjustment disorder with mixed disturbance of emotions and conduct Lancaster IV: Problems with primary supports, Problems with social environment and Problems with financesSeverity: Moderate [place] V: Global Assessment of Functioning 51-60 Moderate [...] frequency thatwill support the treatment goals GAF: 58 PHQ: TATIANA: AUDIT: Medical Issues to Communicate Anxiety: Anxiety and Monetary Worries Relationships: Social Difficulties Self-Image: Self-Doubt Lifestyle Changes Exercise - improved Stress Management - improved Social Support - improved Nutrition - same Subjective: Patient presented symptoms listed above. Objective: Improved Assessment (Goals and Progress Towards Goals): Good follow through with assigned tasks Patient Reported Outcomes: Problems/symptoms: Some progress Mutually agreed to tasks: Were partially accomplished Updated Treatment Plan: Maintain plan identified above documented in this encounter Plan of Treatment Not on filedocumented as of this encounter Visit Diagnoses Diagnosis Adjustment disorder with mixed disturban ce of emotions and conduct - Primary documented in this encounter Care Teams Basic Combatant Swimmer Relationship Specialty Start Date End Date Griselda Mcpherson MD PCP - General 04/12/12 03/22/[address] [place] [phone] documented as of this encounter
--- OUTSIDE RECORDS SUMMARY | 2021-11-25 01:04 | XMS_ITS | Encounter Summary ---
:1955 Author Organization [facility] Address [address] [place] [address] Care Team Providers Name Role Phone Griselda Mcpherson MD Primary Care Provider Reason for Visit Reason Comments Discuss Surgery Encounter Details Date Type Department Care Team Description 09/23/2013 Office Visit [facility] Sharath Vega Stress disorder, acute (Primary Dx); Family Medicine - S, PhD Ventral he rnia, unspecified, without mention of obstruction [place] [address] Social History Tobacco Use Types Packs/Day Years Used Date Current Every Day Smoker 3 Alcohol Use Standard Drinks/Week Comments Yes 0 (1 standard drink = 0.6 oz pure alcoho l) Sex Assigned at Date Recorded Not on file documented as of this encounter Progress Notes Sharath Vega, PhD - 09/23/2013 6685 EDT [facility] PROGRESS NOTE Name: Chapin Perez : 1955 Symptoms/Issues Discussed: surgery and smoking Treatment Plan: Identify and reduce avoidance behaviors contributing negatively to mood Identify, implement and maintain healthy personal boundaries Identify and decrease cognitive distortions contributing negatively to mood and behavior Learn and implement positive coping skills Prognosis: Good Progress to Date: Moderate PHI: Minutes in session 59 Managed care session/count: - Rationale for therapeutic modality: Treatment is evidence supported CBT at the least frequency thatwill support the treatment goals GAF: 58 PHQ: TATIANA: AUDIT: Medical Issues to Communicate Anxiety: Heralth Concerns Lifestyle Changes Exercise - same Stress Management - same Social Support - same Nutrition - n/a Subjective: Patient presented symptoms listed above. Objective: Improved Assessment (Goals and Progress Towards Goals): Continued gradual reduction of smoking. Responded to family stress related issues Updated Treatment Plan: Identify and reduce avoidance behaviors contributing negatively to mood Identify, implement and maintain healthy personal boundaries Identify and decrease cognitive distortions contributing negatively to mood and behavior Learn and implement positive coping skills documented in this encounter Plan of Treatment Not on filedocumented as of this encounter Visit Diagnoses Diagnosis Stress disorder, acute - Primary Other acute reactions to stress Ventral hernia, unspecified, without men tion of obstruction or gangrene documented in this encounter Care Teams Systems Eng Relationship Specialty Start Date End Date Griselda Mcpherson MD PCP - General 04/12/12 03/22/[address] [place] [phone] documented as of this encounter
--- OUTSIDE RECORDS SUMMARY | 2021-11-25 01:04 | XMS_ITS | Encounter Summary ---
:1955 Author Organization [facility] Address [address] [place] [address] Care Team Providers Name Role Phone Griselda Mcpherson MD Primary Care Provider Reason for Visit Reason Comments Smoking Cessation Encounter Details Date Type Department Care Team Description 02/11/2015 Office Visit [facility] Sharath Vega Tobacc o abuse (Primary Family Medicine - S, PhD Dx) [place] [address] Social History Tobacco Use Types Packs/Day Years Used Date Current Every Day Smoker 3 Alcohol Use Standard Drinks/Week Comments Yes 0 (1 standard drink = 0.6 oz pure alcoho l) Sex Assigned at Date Recorded Not on file documented as of this encounter Progress Notes Sharath Vega, PhD - 02/11/2015 1550 EDT FA [facility] PROGRESS NOTE Name: Chapin Perez : 1955 Symptoms/Issues Discussed: Adjustment issues DSM-IV: [place] I: ADJUSTMENT DISORDER [place] II: - [place] III: Patient Active Problem List: Patient Active Problem List Diagnosis ??? 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 Ventral hernia without obstruction or gangrene ??? Stress disorder, acute ??? Tobacco abuse ??? Adjustment disorder with mixed disturbance of emotions and conduct [place] IV: Problems with primary supports and Problems accessing healthcare Severity: Moderate [place] V: Global Assessment of Functioning 51-60 Moderate Difficulty in Functioning/Moderate Symptoms - Treatment Plan: Identify and reduce avoidance behaviors contributing negatively to mood Learn and implement positive coping skills Smoking cessation Prognosis: Excellent Progress to Date: Excellent PHI: Minutes in session 54 Managed care session/count: - Rationale for therapeutic modality: Treatment is evidence supported CBT at the least frequency thatwill support the treatment goals No flowsheet data found. Medical Issues to Communicate Behavioral Discontrol: Impulsivity and Inattention 3 weeks Not smoking Lifestyle Changes Exercise - improved Stress Management - improved Social Support - improved Nutrition - improved Subjective: Patient presented symptoms listed above. Objective: Improved Assessment (Goals and Progress Towards Goals): Good follow through with assigned tasks Patient Reported Outcomes: Problems/symptoms: Some progress Mutually agreed to tasks: Were fully accomplished Updated Treatment Plan: Maintain plan identified above documented in this encounter Plan of Treatment Not on filedocumented as of this encounter Visit Diagnoses Diagnosis Tobacco abuse - Primary Tobacco use disorder documented in this encounter Care Teams Card Reader Relationship Specialty Start Date End Date Griselda Mcpherson MD PCP - General 04/12/12 03/22/[address] [place] [phone] documented as of this encounter
--- OUTSIDE RECORDS SUMMARY | 2021-11-25 01:04 | XMS_ITS | Encounter Summary ---
:1955 Author Organization [facility] Address [address] [place] [address] Care Team Providers Name Role Phone Griselda Mcpherson MD Primary Care Provider French Mcguire ND Primary Care Provider Encounter Details Date Type Department Care Team Description 05/19/2016 Historical Results Only [facility] - Griselda Mcpherson [facility] [place] MD Camryn [address] [place] [address] [place], [place] [phone] Social History Tobacco Use Types Packs/Day Years Used Date Current Every Day Smoker 3 Alcohol Use Standard Drinks/Week Comments Yes 0 (1 standard drink = 0.6 oz pure alcoho l) Sex Assigned at Date Recorded Not on file documented as of this encounter Plan of Treatment Not on filedocumented as of this encounter Procedures Procedure Name Priority Date/Time Associated Diagnosis Comme nts XR LUMBAR SPINE 4+ 05/19/2016 14:17 Resul ts for this VIEWS EST procedure are i n the results section. documented in this encounter Results XR LUMBAR SPINE 4 OR MORE VIEWS (05/19/2016 14:17 EST) Specimen Narrative [facility] - 05/19/2016 14:21 EST ? EXAM: RADIOLOGY/LUMBAR SPINE WITH OBLIQUE EX. D/ (1416) ? CLINICAL INFORMATION: ? M54.5 ACUTE MIDLINE LOW BACK PAIN W/O SCIATICA ? INDICATION: M54.5 ACUTE MIDLINE L OW BACK PAIN W/O SCIATICA LOW BACK ? PAIN ? TECHNIQUE: 4 view lumbar spine wi th oblique views. ? COMPARISON: None ? FINDINGS: ? There is a minimal convex right l umbar spine scoliosis centered at ? the L3 vertebral body level. Diff use disc space narrowing is noted ? throughout the lumbar spine, most advanced at L5/S1. Small endplate ? osteophytes span the lumbar spine . Hypertrophic facet disease is seen ? throughout the lower lumbar spine , most advanced at L5/S1. Bilateral ? oblique imaging was obtained. No pars defects are seen. The osseous ? components of the neural foramen appear patent. ? IMPRESSION: ? 1. Mild convex right lumbar spine scoliosis with multilevel lower ? lumbar spine degenerative disc an d facet disease. This is most ? advanced at L5/S1. ? REPORT SIGNED IN OTHER VENDOR SYSTEM 05/19/2016 ?Reported B y: Ramon Graff MD ? CC: ? Transcribed Date/Time: 05/19/2016 (1421) ? Child And Adolescent Therapist: ? Printed Date/Time: 10/19/2018 (23 17) ? PAGE 1 ? Bri d Report ? Procedure Note Ramon Graff MD - 03/13/2019 EXAM: RADIOLOGY/LUMBAR SPINE WITH OBLIQ UE EX. D/ (1416) CLINICAL INFORMATION: M54.5 ACUTE MIDLINE LOW BACK PAIN W/O S CIATICA INDICATION: M54.5 ACUTE MIDLINE LOW H[place] K PAIN W/O SCIATICA LOW BACK PAIN TECHNIQUE: 4 view lumbar spine with obl ique views. COMPARISON: None FINDINGS: There is a minimal convex right lumbar spine scoliosis centered at the L3 vertebral body level. Diffuse di sc space narrowing is noted throughout the lumbar spine, most advan padmini at L5/S1. Small endplate osteophytes span the lumbar spine. Hype rtrophic facet disease is seen throughout the lower lumbar spine, most advanced at L5/S1. Bilateral oblique imaging was obtained. No pars d efects are seen. The osseous components of the neural foramen appear patent. IMPRESSION: 1. Mild convex right lumbar spine scoli osis with multilevel lower lumbar spine degenerative disc and face t disease. This is most advanced at L5/S1. REPORT SIGNED IN OTHER VENDOR SYSTEM 05/19/2016 Reported By: Ramon Graff MD CC: Transcribed Date/Time: 05/19/2016 (1423 ) Child And Adolescent Therapist: Printed Date/Time: 10/19/2018 (9730) PAGE 1 Signed Report Performing Organization Address City/State/ZIP Code Phon e Number [facility] documented in this encounter Visit Diagnoses Not on filedocumented in this encounter Care Teams Director Fraud Relationship Specialty Start Date End Date Griselda Mcpherson MD PCP - General 04/12/12 03/22/18 [address] [place] [phone] French Mcguire ND PCP - General 03/23/[phone] [id number] documented as of this encounter
--- OUTSIDE RECORDS SUMMARY | 2021-11-25 01:04 | XMS_ITS | Encounter Summary ---
:1955 Author Organization [facility] Address [address] [place] [address] Care Team Providers Name Role Phone Griselda Mcpherson MD Primary Care Provider Reason for Visit Reason Comments Stress Encounter Details Date Type Department Care Team Description 11/05/2014 Office Visit [facility] Sharath Vega Stress disorder, acute Family Medicine - S, PhD (Primary D x) [place] [address] Social History Tobacco Use Types Packs/Day Years Used Date Current Every Day Smoker 3 Alcohol Use Standard Drinks/Week Comments Yes 0 (1 standard drink = 0.6 oz pure alcoho l) Sex Assigned at Date Recorded Not on file documented as of this encounter Progress Notes Sharath Vega, PhD - 11/05/2014 1604 EDT [facility] PROGRESS NOTE Name: Chapin Perez : 1955 Symptoms/Issues Discussed: Adjustment issues DSM-IV: [place] I: ADJUSTMENT DISORDER [place] II: - [place] III: Patient Active Problem List: Patient Active Problem List Diagnosis ??? 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 Ventral hernia, unspecified, without mention of obstruction or gangrene ??? Stress disorder, acute ??? Tobacco abuse [place] IV: Problems with primary supports and Problems with employment/school Severity: Moderate [place] V: Global Assessment of Functioning 51-60 Moderate Difficulty in Functioning/Moderate Symptoms - Treatment Plan: Identify and reduce avoidance behaviors contributing negatively to mood Identify, implement and maintain healthy personal boundaries Learn and implement positive coping skills Learn and utilize emotion regulation strategies Prognosis: Good Progress to Date: Excellent PHI: Minutes in session 35 Managed care session/count: - Rationale for therapeutic modality: Treatment is evidence supported CBT at the least frequency thatwill support the treatment goals GAF: 57 PHQ: TATIANA: AUDIT: Medical Issues to Communicate Relationships: Social Difficulties Self-Image: Self-Doubt Lifestyle Changes Exercise - improved Stress Management - improved Social Support - improved Nutrition - n/a Subjective: Patient presented symptoms listed above. Objective: Improved Assessment (Goals and Progress Towards Goals): Good follow through with assigned tasks, Mood and affect improved and Self report that problem is improving Patient Reported Outcomes: Problems/symptoms: Some progress Mutually agreed to tasks: Were fully accomplished Updated Treatment Plan: Maintain plan identified above documented in this encounter Plan of Treatment Not on filedocumented as of this encounter Visit Diagnoses Diagnosis Stress disorder, acute - Primary Other acute reactions to stress documented in this encounter Care Teams Grain Unloader Machine Relationship Specialty Start Date End Date Griselda Mcpherson MD PCP - General 04/12/12 03/22/[address] [place] [phone] documented as of this encounter
--- OUTSIDE RECORDS SUMMARY | 2021-11-25 01:04 | XMS_ITS | Encounter Summary ---
:1955 Author Organization [facility] Address [address] [place] [address] Care Team Providers Name Role Phone Griselda Mcpherson MD Primary Care Provider Reason for Visit Reason Comments Difficulty Adjusting Encounter Details Date Type Department Care Team Description 04/01/2015 Office Visit [facility] Sharath Vega Adjust ment disorder Family Medicine - S, PhD with mixed disturbance [place] of emotions and [address] conduct (Primary Dx) [address] [place], [place] [id number] Social History Tobacco Use Types Packs/Day Years Used Date Current Every Day Smoker 3 Alcohol Use Standard Drinks/Week Comments Yes 0 (1 standard drink = 0.6 oz pure alcoho l) Sex Assigned at Date Recorded Not on file documented as of this encounter Progress Notes Sharath Vega, PhD - 04/01/2015 1740 EST FA [facility] PROGRESS NOTE Name: Chapin Perez : 1955 Symptoms/Issues Discussed: Adjustment issues DSM-IV: [place] I: 316 [place] II: - [place] III: Patient Active Problem List: Patient Active Problem List Diagnosis ??? 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 Ventral hernia without obstruction or gangrene ??? Stress disorder, acute ??? Tobacco abuse ??? Adjustment disorder with mixed disturbance of emotions and conduct [place] IV: Problems with primary supports and Relationship problems Severity: Moderate [place] V: Global Assessment of Functioning 51-60 Moderate Difficulty in Functioning/Moderate Symptoms - Treatment Plan: Identify, implement and maintain healthy personal boundaries Learn and implement positive coping skills Learn and utilize emotion regulation strategies Prognosis: Good Progress to Date: Excellent PHI: Minutes in session 53 Managed care session/count: - Rationale for therapeutic modality: Treatment is evidence supported CBT at the least frequency thatwill support the treatment goals No flowsheet data found. Medical Issues to Communicate Relationships: Couples Distress Lifestyle Changes Exercise - [...] Primary documented in this encounter Care Teams Sign Writer Letterer Or Painter Relationship Specialty Start Date End Date Griselda Mcpherson MD PCP - General 04/12/12 03/22/[address] [place] [phone] documented as of this encounter
--- OUTSIDE RECORDS SUMMARY | 2021-11-25 01:04 | XMS_ITS | Encounter Summary ---
:1955 Author Organization [facility] Address [address] [place] [address] Care Team Providers Name Role Phone Griselda Mcpherson MD Primary Care Provider Reason for Visit Reason Comments Difficulty Adjusting Encounter Details Date Type Department Care Team Description 09/30/2015 Office Visit [facility] Sharath Vega Adjust ment disorder Family Medicine - S, PhD with mixed disturbance [place] of emotions and [address] conduct (Primary Dx) [address] [place], [place] [id number] Social History Tobacco Use Types Packs/Day Years Used Date Current Every Day Smoker 3 Alcohol Use Standard Drinks/Week Comments Yes 0 (1 standard drink = 0.6 oz pure alcoho l) Sex Assigned at Date Recorded Not on file documented as of this encounter Progress Notes Sharath Vega, PhD - 09/30/2015 1729 EDT [facility] PROGRESS NOTE Name: Chapin Perez : 1955 Symptoms/Issues Discussed: Adjustment issues ICD: [place] I: ADJUSTMENT DISORDER [place] II: - [place] III: Patient Active Problem List: Patient Active Problem List Diagnosis ??? 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 Ventral hernia without obstruction or gangrene ??? Stress disorder, acute ??? Tobacco abuse ??? Adjustment disorder with mixed disturbance of emotions and conduct [place] IV: Problems with primary supports, Problems with social environment and Relationship problems Severity: Moderate [place] V: Global Assessment of Functioning 51-60 Moderate Difficulty in Functioning/Moderate Symptoms - Treatment Plan: Summary of goals: Identify and reduce avoidance behaviors contributing negatively to mood Identify, implement and maintain healthy personal boundaries Identify and decrease cognitive distortions contributing negatively to mood and behavior Learn and implement positive coping skills Progress to date: continued improve function and dealing with stress Frequency and duration of service twice monthly, up to 2 years Prognosis: Good Progress to Date: Excellent PHI: Minutes in session 54 Managed care session/count: - Rationale for therapeutic modality: Treatment is evidence supported CBT at the least frequency thatwill support the treatment goals No flowsheet data found. Medical Issues to Communicate Anxiety: Anxiety Relationships: Family Tension and Social Difficulties Lifestyle Changes Exercise - improved [...] Primary documented in this encounter Care Teams Brush Worker Relationship Specialty Start Date End Date Griselda Mcpherson MD PCP - General 04/12/12 03/22/[address] [place] [phone] documented as of this encounter
--- OUTSIDE RECORDS SUMMARY | 2021-11-25 01:04 | XMS_ITS | Encounter Summary ---
:1955 Author Organization [facility] Address [address] [place] [address] Care Team Providers Name Role Phone Griselda Mcpherson MD Primary Care Provider Reason for Visit Reason Comments Difficulty Adjusting Encounter Details Date Type Department Care Team Description 03/12/2014 Office Visit [facility] Sharath Vega Stress disorder, acute Family Medicine - S, PhD (Primary D x) [place] [address] Social History Tobacco Use Types Packs/Day Years Used Date Current Every Day Smoker 3 Alcohol Use Standard Drinks/Week Comments Yes 0 (1 standard drink = 0.6 oz pure alcoho l) Sex Assigned at Date Recorded Not on file documented as of this encounter Progress Notes Sharath Vega, PhD - 03/12/2014 1824 EST [facility] PROGRESS NOTE Name: Chapin Perez : 1955 Symptoms/Issues Discussed: Adjustment issues DSM-IV: [place] I: Adjustment disorder w/disturbance emotions & conduct 309.4 [place] II: - [place] III: Patient Active Problem List: Patient Active Problem List Diagnosis ??? 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 Ventral hernia, unspecified, without mention of obstruction or gangrene ??? Stress disorder, acute [place] IV: Problems with primary supports, Problems with finances and Problems accessing healthcare Severity: Moderate [place] V: Global Assessment of Functioning 51-60 Moderate Difficulty in Functioning/Moderate Symptoms - Current GAF: 57 Treatment Plan: Identify and reduce avoidance behaviors [...] TATIANA: AUDIT: Medical Issues to Communicate Anxiety: Monetary Worries Relationships: Couples Distress Lifestyle Changes Exercise - [...] stress documented in this encounter Care Teams Pleater Relationship Specialty Start Date End Date Griselda Mcpherson MD PCP - General 04/12/12 03/22/[address] [place] [phone] documented as of this encounter
--- OUTSIDE RECORDS SUMMARY | 2021-11-25 01:04 | XMS_ITS | Encounter Summary ---
:1955 Author Organization [facility] Address [address] [place] [address] Care Team Providers Name Role Phone Griselda Mcpherson MD Primary Care Provider Reason for Visit Reason Comments Discuss Surgery Encounter Details Date Type Department Care Team Description 2013 Office Visit [facility] Sharath Vega Ventra l hernia, Family Medicine - S, PhD unspecifie d, without [place] mention of obstruction [address] or gangrene (Primary [address] Dx) [place], [place] [id number] Social History Tobacco Use Types Packs/Day Years Used Date Current Every Day Smoker 3 Alcohol Use Standard Drinks/Week Comments Yes 0 (1 standard drink = 0.6 oz pure alcoho l) Sex Assigned at Date Recorded Not on file documented as of this encounter Progress Notes Sharath Vega, PhD - 2013 1807 EDT Psychologist Note Name: Chapin Perez : 1955 Symptoms Discussed: fear of IV and surgical procedure Treatment Plan: Continue Individual Therapy Prognosis: Good Progress to Date: Modest PHI: Time in session 54 Managed care session/count: Rationale for type and frequency of treatment. Treatment is evidence supported CBT at the least frequency that will support treatment goals. GAF: 58 PHQ: - TATIANA: - AUDIT: - Medical Issues to Communicate fear of upcoming surgery Subjective: Patient presented symptoms listed above. Objective: Same Assessment: This is first full visit after consultation with Dr. Mallory. Patient continues to verbalize fear of surgery and IV insertion. Thracked that and fear is not specified. Patient feels comfortable with Dr. Mallory, thinks outcome is going to be fine and is able to be clear that surgery needs to be done. Patient raised a number of questions. Most answered to me by Dr. Mallory. Surgery will beapproximately 1 1/2 hours, depending on pain may be same day to home, or one overnight. Patient has minimal c oncerns about pain. He wonders if there is a teaching vdeo documenting hte procedure he will be having? He otis best with information, and would, I think, make good use of such a video. Was ab le to find a needle similar in size to IV, and began desensitizing concerns about IV. Goog prognosis Plan: Will continue to consult with Dr. Mallory. Focus on needle desternalization, Making distinct hte generalized fear, form any concerns about the surgery itself. documented in this encounter Plan of Treatment Not on filedocumented as of this encounter Visit Diagnoses Diagnosis Ventral hernia, unspecified, without men tion of obstruction or gangrene - Primary documented in this encounter Care Teams Arts And Crafts Instructor Relationship Specialty Start Date End Date Griselda Mcpherson MD PCP - General 04/12/12 03/22/[address] [place] [phone] documented as of this encounter
--- OUTSIDE RECORDS SUMMARY | 2021-11-25 01:04 | XMS_ITS | Encounter Summary ---
:1955 Author Organization [facility] Address [address] [place] [address] Care Team Providers Name Role Phone Griselda Mcpherson MD Primary Care Provider Reason for Visit Reason Comments Stress Encounter Details Date Type Department Care Team Description 09/18/2013 Office Visit [facility] Sharath Vega Stress disorder, acute Family Medicine - S, PhD (Primary D x) [place] [address] Social History Tobacco Use Types Packs/Day Years Used Date Current Every Day Smoker 3 Alcohol Use Standard Drinks/Week Comments Yes 0 (1 standard drink = 0.6 oz pure alcoho l) Sex Assigned at Date Recorded Not on file documented as of this encounter Progress Notes Sharath Vega, PhD - 09/18/2013 1712 EDT FA [facility] PROGRESS NOTE Name: Chapin Perez : 1955 Symptoms/Issues Discussed: surgery Treatment Plan: Identify and reduce avoidance behaviors contributing negatively to mood Identify, implement and maintain healthy personal boundaries Learn and utilize emotion regulation strategies smoking cessation Prognosis: Fair Progress to Date: Good PHI: Minutes in session 54 Managed care session/count: 0 Rationale for therapeutic modality: Treatment is evidence supported CBT at the least frequency thatwill support the treatment goals GAF: 56 PHQ: TATIANA: AUDIT: Medical Issues to Communicate Relationships: Family Tension Behavioral Discontrol: Anger Lifestyle Changes Exercise - same Stress Management - improved Social Support - same Nutrition - n/a Subjective: Patient presented symptoms listed above. Objective: Improved Assessment (Goals and Progress Towards Goals): diminished smoking volume, self monitoring and regulating smoking, discussing multiple stressors Updated Treatment Plan: Identify and reduce avoidance behaviors contributing negatively to mood Identify and decrease cognitive distortions contributing negatively to mood and behavior documented in this encounter Plan of Treatment Not on filedocumented as of this encounter Visit Diagnoses Diagnosis Stress disorder, acute - Primary Other acute reactions to stress documented in this encounter Care Teams Jigger Operator Relationship Specialty Start Date End Date Griselda Mcpherson MD PCP - General 04/12/12 03/22/[address] [place] [phone] documented as of this encounter
--- OUTSIDE RECORDS SUMMARY | 2021-11-25 01:04 | XMS_ITS | Encounter Summary ---
:1955 Author Organization [facility] Address [address] [place] [address] Care Team Providers Name Role Phone Griselda Mcpherson MD Primary Care Provider Reason for Visit Reason Comments Pain Encounter Details Date Type Department Care Team Description 06/01/2016 Office Visit [facility] Sharath Vega Adjust ment disorder Family Medicine - S, PhD with mixed disturbance [place] of emotions and [address] conduct (Primary Dx) [address] [place], [place] [id number] Social History Tobacco Use Types Packs/Day Years Used Date Current Every Day Smoker 3 Alcohol Use Standard Drinks/Week Comments Yes 0 (1 standard drink = 0.6 oz pure alcoho l) Sex Assigned at Date Recorded Not on file documented as of this encounter Progress Notes Sharath Vega, PhD - 06/01/2016 1600 EST FA [facility] PROGRESS NOTE Name: Chapin Perez : 1955 Symptoms/Issues Discussed: Chronic pain ICD: [place] I: 316 [place] II: - [place] III: Patient Active Problem List: Patient Active Problem List Diagnosis ??? 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 Ventral hernia without obstruction or gangrene ??? Stress disorder, acute ??? Tobacco abuse ??? Adjustment disorder with mixed disturbance of emotions and conduct [place] IV: Problems accessing healthcare Severity: Moderate [place] V: Global Assessment of Functioning 51-60 Moderate Difficulty in Functioning/Moderate Symptoms - History of Presenting Problem Location: Patient's Home and Worksite Impact on Quality of Life: Severe Impact Severity: Regular Presence Duration: Within Last 3 Months Timing: No Specific Time Context: No Identifiable Contextual Factors Modifying Factors: When Stressed, When Tired and With Poor Sleep Associated Signs and Symptoms: Changes in: Emotional State, Behavior and Tiredness Treatment Plan Summary of Goals: Identify and reduce avoidance behaviors contributing negatively to mood Identify, implement and maintain healthy personal boundaries Learn and implement positive coping skills Progress to Date: Mood and affect improved Frequency and Duration of Service: Twice monthly for up to 2 years. Rationale for Therapeutic Modality: Treatment is evidence supported CBT at the least frequency that will support the treatment goals Prognosis: Good PHI: Minutes in session 34 Session length up to 45 minutes Managed care session/count: - No flowsheet data found. Medical Issues to Communicate Mood: Irritability Lifestyle Changes Exercise - same Stress Management - improved Social Support - improved Nutrition - same Subjective: Patient presented symptoms listed above. Objective: Some Change Overall function is good. Relationship strong. Anxiety limited. Managing stress successfully. Patient Reported Outcomes: Problems/symptoms: Got worse Mutually agreed to tasks: Were partially accomplished Updated Treatment Plan: Maintain plan identified above documented in this encounter Plan of Treatment Not on filedocumented as of this encounter Visit Diagnoses Diagnosis Adjustment disorder with mixed disturban ce of emotions and conduct - Primary documented in this encounter Care Teams Student Services Advisor Relationship Specialty Start Date End Date Griselda Mcpherson MD PCP - General 04/12/12 03/22/[address] [place] [phone] documented as of this encounter
--- OUTSIDE RECORDS SUMMARY | 2021-11-25 01:04 | XMS_ITS | Encounter Summary ---
:1955 Author Organization [facility] Address [address] [place] [address] Care Team Providers Name Role Phone Girselda Mcpherson MD Primary Care Provider Reason for Visit Reason Comments Difficulty Adjusting Encounter Details Date Type Department Care Team Description 12/29/2014 Office Visit [facility] Sharath Vega Adjust ment disorder Family Medicine - S, PhD with mixed disturbance [place] of emotions and [address] conduct (Primary Dx) [address] [place], [place] [phone] Social History Tobacco Use Types Packs/Day Years Used Date Current Every Day Smoker 3 Alcohol Use Standard Drinks/Week Comments Yes 0 (1 standard drink = 0.6 oz pure alcoho l) Sex Assigned at Date Recorded Not on file documented as of this encounter Progress Notes Sharath Vega, PhD - 12/29/2014 1651 EDT PRIMARY [facility] PROGRESS NOTE Name: Chapin Perez : 1955 Symptoms/Issues Discussed: Adjustment issues DSM-IV: [place] I: ADJUSTMENT DISORDER [place] II: - [place] III: Patient Active Problem List: Patient Active Problem List Diagnosis ??? 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 Ventral hernia, unspecified, without mention of obstruction or gangrene ??? Stress disorder, acute ??? Tobacco abuse ??? Adjustment disorder with mixed disturbance of emotions and conduct [place] IV: Problems with primary supports, Problems with social environment and Relationship problems Severity: Moderate [place] V: Global Assessment of Functioning 51-60 Moderate [...] Primary documented in this encounter Care Teams Medical Records Library Professor Relationship Specialty Start Date End Date Griselda Mcpherson MD PCP - General 04/12/12 03/22/[address] [place] [phone] documented as of this encounter
--- OUTSIDE RECORDS SUMMARY | 2021-11-25 01:04 | XMS_ITS | Encounter Summary ---
:[address] [facility] Address [address] [place] [address] Care Team Providers Name Role Phone Griselda Mcpherson MD Primary Care Provider Reason for Referral Vascular Lab (Routine) - Closed Specialty Diagnoses / Procedures Referred By Contact Refer red To Contact Diagnoses Ventral hernia, unspecified, without mention of obstruction or gangrene Unspecified venous (peripheral) insufficiency Greta Longo, Rajni VL VENOUS INSUFFICIENCY (VARICOSE VEINS) JEREMY [address] [phone] Referral ID Status Reason Start Date Expiration Date Visits Requ ested Visits Authorized [id number] Closed 08/05/2013 1 1 Reason for Visit Reason Comments Other Encounter Details Date Type Department Care Team Description 08/05/2013 Office Visit [facility] Greta Longo Unspe cified venous (peripheral) insufficiency (Primary Dx); General Surgery - MD Matthew Ventral hernia, unspecified, without men tion of obstruction or gangrene [address] [id number] Social History Tobacco Use Types Packs/Day Years Used Date Current Every Day Smoker 3 Alcohol Use Standard Drinks/Week Comments Yes 0 (1 standard drink = 0.6 oz pure alcoho l) Sex Assigned at Date Recorded Not on file documented as of this encounter Last Filed Vital Signs Vital Sign Reading Time Taken Comments Blood Pressure 135/81 08/05/2013 1457 EDT Pulse 86 08/05/2013 1457 EDT Temperature - - Respiratory Rate 16 08/05/2013 1457 EDT Oxygen Saturation - - Inhaled Oxygen Concentration - - Weight 111.1 kg (245 lb) 08/05/2013 1457 EDT Height 177.8 cm (5' 10) 08/05/2013 1457 EDT Body Mass Index 35.15 08/05/2013 1457 EDT documented in this encounter Progress Notes Greta Longo MD - 08/05/2013 1634 EDT YORBA LINDA GENERAL SURGERY HISTORY AND PHYSICAL EXAMINATION Date of Service: 08/05/2013 PROBLEM: Chief Complaint Patient presents with ??? Other SUBJECTIVE: Mr Perez arrives late today, but we still saw the patient. He has 2 complaints: Severe leg pains associated with venous stasis disease. This also effects his left knee as well as a large ventral hernia. The patient states that he saw me many years ago when the hernia was much smaller. Now this has become quite large and the fact that it is always out, but he can reduce it and wears an abdominal binder. He states he is deathly afraid of undergoing surgery. He is also deathly afraid of needles and therefore has avoided any type of operations. In regards to his legs, he has chronic venous stasis disease. He states this all started after beingkicked by a horse in that area. 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 He finds that hislegs can be quite painful. He has worn compression stockings, both lower knee, thigh-high, which allare problematic. He finds that often they roll down or they cut into his legs. PROBLEM LIST: does not have any pertinent problems on file. History reviewed. No pertinent past medical history. History reviewed. No pertinent past surgical history. Family History Problem Relation Age of Onset ??? Diabetes Mother ??? High Blood Pressure Mother ??? High Cholesterol Mother ??? Depression Mother ??? Cancer Father ??? Heart Disease Maternal Uncle ??? Heart Disease Maternal Grandfather No current outpatient prescriptions on file. No current facility-administered medications for this visit. ALLERGIES: No Known Allergies REVIEW OF SYSTEMS: Review of Systems 08/05/2013 Cardiovascular Leg swelling Psychiatric Nervous/Anxious Gastrointestinal Heartburn;Nausea;Diarrhea;Constipation;[place]anca Musculoskeletal Joint pain PHYSICAL EXAM: BP 135/81 Pulse 86 Resp 16 Ht 177.8 cm (70) Wt 111.131 kg (245 lb) BMI 35.15 kg/m2 This is an obese white male in no acute distress. Lungs are clear. Cardiac: Regular rate and rhythm.Abdomen is soft, nontender, nondistended, good bowel sounds. He has a very large ventral hernia, which does reduce into a relatively smaller defect measuring about 3 x 5 cm. However, the hernia itself is about 12 cm around. His extremities: He has significant edema, left worse than the right. There are venous stasis changes of both legs, but markedly worse on the left leg, especially across the ann and posterior calf. He does have varicose veins along the posterior calf. Pulses are 2+ bilaterally. ASSESSMENT: 1. Painful varicose veins associated with venous stasis dermatitis and history of ulcerations. 2. Large ventral hernia, still reducible but with some difficulty. PLAN: 1. First, I discussed and reviewed with the patient the pathophysiology of venous stasis disease. Unfortunately, he needs chronic compression therapy. He states he has had trouble and he does not necessarily wear these in the mornings when he is first working in the office. I did reiterate that it is important he keep his leg elevated at night. The first thing in the morning he has to place compression stockings on. I have given him another prescription today for at least the knee-high compression stockings. 2. We can obtain an ultrasound to look for reflux disease. He may be amenable to saphenous vein ablation to help reduce some of the pressure and swelling in the leg. Although this will not change the venous stasis he has so far, it could hopefully slow the process down. 3. With regards to the ventral hernia. This is quite large and should be repaired. I did discuss with the patient their options as far as a primary open technique versus laparoscopic technique. 4. 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 Luckily, Dr Vic Vega of psychology was available today. I did introduce him to Dr Vega and the patient stated he is willing to work with Dr Vega to overcome some of his phobias. 5. The patient is not interested in undergoing surgery until the fall. Therefore, I will see him back in January or February and hopefully this will give him some time to work on stress reduction and coping mechanisms so that he may undergo surgery. Greta Longo MD 08/05/2013 documented in this encounter Plan of Treatment Scheduled Orders Name Type Priority Associated Diagnoses Order S chedule VL VENOUS INSUFFICIENCY Imaging Routine Ventral hernia, O rdered: 08/05/2013 (VARICOSE VEINS) JEREMY unspecified, without mention of obstruction or gangrene Unspecified venous (peripheral) insufficiency documented as of this encounter Visit Diagnoses Diagnosis Unspecified venous (peripheral) insuffic iency - Primary Ventral hernia, unspecified, without men tion of obstruction or gangrene documented in this encounter Discontinued Medications Medication Sig Discontinue Reason Start Date End Date nicotine (NICODERM CQ) 21 Place 21 mg onto 08/05/2013 mg/24 hr patch the skin daily. ibuprofen (MOTRIN) 800 mg Take 800 mg by 08/05/2013 tablet mouth 3 times daily. documented as of this encounter Orders Equipment Count Last Ordered Date First Ordered Date COMPRESSION STOCKINGS 1 08/05/2013 documented in this encounter Care Teams Narrow Fabric Loom Fixer Relationship Specialty Start Date End Date Griselda Mcpherson MD PCP - General 04/12/12 03/22/[address] [place] [phone] documented as of this encounter
--- OUTSIDE RECORDS SUMMARY | 2021-11-25 01:04 | XMS_ITS | Encounter Summary ---
:1955 Author Organization [facility] Address [address] [place] [address] Care Team Providers Name Role Phone Griselda Mcpherson MD Primary Care Provider Reason for Visit Reason Comments Stress Encounter Details Date Type Department Care Team Description 01/21/2015 Office Visit [facility] Sharath Vega Adjust ment disorder Family Medicine - S, PhD with mixed disturbance [place] of emotions and [address] conduct (Primary Dx) [address] [place], [place] [phone] Social History Tobacco Use Types Packs/Day Years Used Date Current Every Day Smoker 3 Alcohol Use Standard Drinks/Week Comments Yes 0 (1 standard drink = 0.6 oz pure alcoho l) Sex Assigned at Date Recorded Not on file documented as of this encounter Progress Notes Sharath Vega, PhD - 01/21/2015 1711 EDT PRIMARY CARE BEH[facility]IORAL HE[facility] PROGRESS NOTE Name: Chapin Perez : 1955 Symptoms/Issues Discussed: Adjustment issues DSM-IV: [place] I: ADJUSTMENT DISORDER [place] II: - [place] III: Patient Active Problem List: Patient Active Problem List Diagnosis ??? 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 Ventral hernia, unspecified, without mention of obstruction or gangrene ??? Stress disorder, acute ??? Tobacco abuse ??? Adjustment disorder with mixed disturbance of emotions and conduct [place] IV: Problems with primary supports, Problems with social environment and Relationship problems Severity: Moderate [place] V: Global Assessment of Functioning 51-60 Moderate Difficulty in Functioning/Moderate Symptoms - Treatment Plan: Identify and reduce avoidance behaviors contributing negatively to mood Identify, implement and maintain healthy personal boundaries Learn and implement positive coping skills Improve interpersonal effectiveness and communication skills Prognosis: Good Progress to Date: Excellent PHI: Minutes in session 36 Managed care session/count: - Rationale for therapeutic modality: Treatment is evidence supported CBT at the least frequency thatwill support the treatment goals No flowsheet data found. Medical Issues to Communicate Anxiety: Health Concerns Relationships: Couples Distress and Social Difficulties Lifestyle Changes Exercise - same [...] Primary documented in this encounter Care Teams Bus Greaser Relationship Specialty Start Date End Date Griselda Mcpherson MD PCP - General 04/12/12 03/22/[address] [place] [phone] documented as of this encounter
--- OUTSIDE RECORDS SUMMARY | 2021-11-25 01:04 | XMS_ITS | Encounter Summary ---
:1955 Author Organization [facility] Address [address] [place] [address] Care Team Providers Name Role Phone French Mcguire ND Primary Care Provider Encounter Details Date Type Department Care Team Description 10/15/2018 Historical Results [facility] - Darlin Ferreira MD Only [facility] Radiology Resul ts [address] [facility] [address] [place] [address] [place], [place] [phone] Social History Tobacco Use Types Packs/Day [...] Priority Date/Time Associated Diagnosis Comme nts CT ABDOMEN PELVIS 10/15/2018 10:20 Result s for this WO CONTRAST EDT procedure are i n the results section. documented in this encounter Results CT ABDOMEN PELVIS WO CONTRAST (10/15/2018 10:20 EDT) Specimen Narrative [facility] - 10/15/2018 10:23 EDT ? EXAM: CAT SCAN/ABDOMEN PELVIS WITHOUT CON EX. D/ (0949) ? CLINICAL INFORMATION: ? R31.0 GROSS HEMATURIA ? R/O RENAL MASS, STONE, TUMOR ? ABDOMEN PELVIS WITHOUT CONTRAS ?? 10/15/2018 9:49 AM ? Signs and Symptoms/Comments: ? R31.0 GROSS HEMATURIA, R/O RENAL MASS, STONE, TUMOR ? Technique: CT of the abdomen and pelvis was performed without ? intravenous contrast; coronal and sagittal multiplanar ? reconstructions were generated. ? Comparison: MRI lumbar spine 08/30 ? FINDINGS: ? Lower chest: The lung bases are c lear. There is no pleural or ? pericardial effusion. ? Hepatobiliary: There is a 2.1 cm cyst within the right hepatic lobe. ? An additional subcentimeter hypod ense lesion within the left hepatic ? lobe is too small to characterize , but is statistically likely to be ? benign. The gallbladder is normal in appearance. There is no biliary ? ductal dilatation. ? Spleen, pancreas, adrenal glands: Low-density nodular thickening of ? both adrenal glands compatible wi th small adenomas. ? Kidneys, ureters, bladder: The ki dneys are normal in position and ? morphology. There is no hydroneph rosis or nephrolithiasis. The ? ureters are normal in caliber. Th e bladder is thin-walled. Within the ? mid left kidney, there is a 3.8 c m water attenuation cyst. No solid ? renal mass is detected, but pleas e note that sensitivity is ? diminished due to lack of intrave nous contrast. ? Reproductive: The prostate is mil dly enlarged. A right hydrocele is ? partially included in the imaging [id number]. ? Bowel: There is no bowel obstruct ion or bowel wall thickening. The ? appendix is visualized and is nor mal. There is extensive sigmoid ? diverticulosis without evidence o f acute diverticulitis at this time. ? Peritoneal cavity / Subperitoneal space: No free fluid. No free ? intraperitoneal air. ? Lymphovascular: Scattered aortoil iac atherosclerotic disease. No ? aneurysm. No lymphadenopathy dete cted. ? Abdominal wall: Intact. ? Musculoskeletal: Degenerative spo ndylosis of the lower lumbar spine. ? No acute osseous abnormality dete cted ? IMPRESSION: ? PAGE 1 ? Bri d Report ? (CONTINUED) ? 1. No urinary tract calculi detec julian. 3.8 cm left renal cyst. No ? solid renal mass is detected. Not e that sensitivity for detection of ? small masses is diminished withou t the use of contrast. If symptoms ? persist, consider further assessm ent with MRI. ? 2. Diverticulosis without evidenc e of acute diverticulitis. ? 3. Right hydrocele ? REPORT SIGNED IN OTHER VENDOR SYSTEM 10/15/2018 ?Reported B y: Augustine Peterson MD ? CC: ? Transcribed Date/Time: 10/15/2018 (1023) ? Slate Picker: ? Printed Date/Time: 01/23/2019 (17 54) ? PAGE 2 ? Bri d Report ? Procedure Note Augustine Peterson E - 03/12/2019 EXAM: CAT SCAN/ABDOMEN PELVIS WITHOUT C ON EX. D/ (0949) CLINICAL INFORMATION: R31.0 GROSS HEMATURIA R/O RENAL MASS, STONE, TUMOR ABDOMEN PELVIS WITHOUT CONTRAS 9 9:49 AM Signs and Symptoms/Comments: R31.0 GROSS HEMATURIA, R/O RENAL MASS, STONE, TUMOR Technique: CT of the abdomen and pelvis was performed without intravenous contrast; coronal and sagit monisha multiplanar reconstructions were generated. Comparison: MRI lumbar spine 08/30/2016 FINDINGS: Lower chest: The lung bases are clear. There is no pleural or pericardial effusion. Hepatobiliary: There is a 2.1 cm cyst w ithin the right hepatic lobe. An additional subcentimeter hypodense l esion within the left hepatic lobe is too small to characterize, but is statistically likely to be benign. The gallbladder is normal in ap pearance. There is no biliary ductal dilatation. Spleen, pancreas, adrenal glands: Low-d ensity nodular thickening of both adrenal glands compatible with sma ll adenomas. Kidneys, ureters, bladder: The kidneys are normal in position and morphology. There is no hydronephrosis or nephrolithiasis. The ureters are normal in caliber. The blad addie is thin-walled. Within the mid left kidney, there is a 3.8 cm wate r attenuation cyst. No solid renal mass is detected, but please note that sensitivity is diminished due to lack of intravenous c ontrast. Reproductive: The prostate is mildly en larged. A right hydrocele is partially included in the imaging field -of-view. Bowel: There is no bowel obstruction or bowel wall thickening. The appendix is visualized and is normal. T here is extensive sigmoid diverticulosis without evidence of acut e diverticulitis at this time. Peritoneal cavity / Subperitoneal space : No free fluid. No free intraperitoneal air. Lymphovascular: Scattered aortoiliac at herosclerotic disease. No aneurysm. No lymphadenopathy detected. Abdominal wall: Intact. Musculoskeletal: Degenerative spondylos is of the lower lumbar spine. No acute osseous abnormality detected IMPRESSION: PAGE 1 Signed Report (CONTINUED) 1. No urinary tract calculi detected. 3 .8 cm left renal cyst. No solid renal mass is detected. Note that sensitivity for detection of small masses is diminished without the use of contrast. If symptoms persist, consider further assessment wi th MRI. 2. Diverticulosis without evidence of a cute diverticulitis. 3. Right hydrocele REPORT SIGNED IN OTHER VENDOR SYSTEM 10/15/2018 Reported By: Augustine Peterson MD CC: Transcribed Date/Time: 10/15/2018 (1023 ) Slate Picker: Printed Date/Time: 01/23/2019 (2894) PAGE 2 Signed Report Performing Organization Address City/State/ZIP Code Phon e Number [facility] documented in this encounter Visit Diagnoses Not on filedocumented in this encounter Care Teams Insurance Investigator Relationship Specialty Start Date End Date French Mcguire ND PCP - General 03/23/[address] [place] [phone] documented as of this encounter
--- OUTSIDE RECORDS SUMMARY | 2021-11-25 01:04 | XMS_ITS | Encounter Summary ---
:1955 Author Organization [facility] Address [address] [place] [address] Care Team Providers Name Role Phone French Mcguire MARIBETH Primary Care Provider Reason for Visit Reason Comments Hernia Encounter Details Date Type Department Care Team Description 03/26/2018 Office Visit [facility] Greta Longo Abdom inal muscle General Surgery - MD Matthew strain, initial [address] encounter (Primary Dx) [address] [facility] [address] [place] [phone] Social History Tobacco Use Types Packs/Day Years [...] 1106 EST Temperature - - Respiratory Rate - - Oxygen Saturation - - Inhaled Oxygen Concentration - - Weight 120.2 kg (265 lb) 03/26/2018 1106 EST Height 177.8 cm (5' 10) 03/26/2018 1106 EST Body Mass Index 38.02 03/26/2018 1106 EST documented in this encounter Discharge Disposition Disposition Code Departure Means Destination Auto Discharge documented in this encounter Progress Notes Greta Longo MD - 03/26/2018 1100 EST [facility] H[facility]ORY AND PHYSICAL EXAMINATION Date of Service: 03/26/2018 CC: LLQ abdominal pain SUBJECTIVE: Mr. Chapin Perez is a 62 y.o. White male, presenting with a history of prior ventral and umbilical hernia repair in 2015 presents with 1 month of intermittent LLQ abdominal pain. States happened after he was doing some heavy lifting. Feels somewhat similar to hernia pain which is why hewanted to come in for a check up. Saw his PCP and they did not feel a hernia. Coughing makes the pain worse. No masses or bulges. No changes is bowel habits. Nothing makes it better. Hasn't tried and OTC medications, ice or heat. Pain is non- radiating. No issues at his prior hernia site. No inguinal bulging or hernias that he has noticed. PROBLEM LIST: Abdomina; pain History reviewed. Arthritis. Past Surgical History: Procedure Laterality Date ??? HERNIA REPAIR Family History Problem Relation Age of Onset ??? Diabetes Mother ??? High Blood Pressure Mother ??? High Cholesterol Mother ??? Depression Mother ??? Cancer Father ??? Heart Disease Maternal Uncle ??? Heart Disease Maternal Grandfather Current Outpatient Medications: ibuprofen (MOTRIN) 200 mg tablet No current facility-administered medications for this visit. ALLERGIES: No Known Allergies REVIEW OF SYSTEMS: Review of Systems 08/05/2013 Cardiovascular Leg swelling Psychiatric Nervous/Anxious Gastrointestinal Heartburn;Nausea;Diarrhea;Constipation;Blanca Musculoskeletal Joint pain PHYSICAL EXAM: BP (!) 171/104 Pulse 84 Ht 177.8 cm (70) Wt (!) 120.2 kg (265 lb) BMI 38.02 kg/m?? General appearance: alert, cooperative, no distress Skin: Skin color, temperature, turgor normal. No rashes or lesions Eyes: negative Lungs: clear to auscultation bilaterally, non labored breathing Heart: regular rate and rhythm, S1, S2 normal Abdomen:soft, obese, non-tender, prior ventral hernia incision well healed, no evidence of recurrentmidline hernia, non-tender in LLQ no reproducible pain, no abdominal hernias appreciated in seated or standing position or with valsalva : no inguinal hernias appreciated on right or left, right testicle with edema- soft no palable massnonreducing Neurologic: Grossly normal Mental Status: awake and alert; oriented to person, place, and time ASSESSMENT: 1. Abdominal muscle strain, initial encounter 62 yo male with prior history of ventral and umbilical hernia repair with mesh in 2015 who Presents with LLQ abdominal pain for 3 weeks after lifting. Pain is not centrally located near prior hernia and no evidence of recurrence. No evidence of hernia at site of pain and no inguinal hernia appreciated. Given history of pain with lifting likely that he strained an abdominal wall muscle with lifting. Hernia would also be on the differential, however no hernias appreciated on exam today. PLAN: No need for imaging at this time Recommended, ice, rest and OTC anti-inflammatory medications Could consider PT as well if no improvement Follow up as needed or if pain and symptoms do not improve for the next 4-6 weeks Jennifer Mayers MD 03/26/2018 5276 Attestation statement: I saw and examined the patient with the resident/fellow. I agree with the findings and plan of care documented in the resident's/fellow's note. I reassured the patient no sing of recurrent hernia or inguinal hernia. Recommend observation for now. Greta Longo MD documented in this encounter Plan of Treatment Not on filedocumented as of this encounter Visit Diagnoses Diagnosis Abdominal muscle strain, initial encount er - Primary documented in this encounter Historical Medications This list may reflect changes made after this encounter. Medication Sig Dispensed Refills Start Date End Date ibuprofen (MOTRIN) 200 mg Take 400 mg by mouth 0 tablet every 6 hours as needed for Pain. added in this encounter Care Teams Lead Business Systems Analyst Relationship Specialty Start Date End Date French Mcguire ND PCP - General 03/23/[address] [place] [id number] documented as of this encounter
--- OUTSIDE RECORDS SUMMARY | 2021-11-25 01:04 | XMS_ITS | Encounter Summary ---
:1955 Author Organization [facility] Address [address] [place] [address] Care Team Providers Name Role Phone Griselda Mcpherson MD Primary Care Provider Reason for Visit Reason Comments Stress Encounter Details Date Type Department Care Team Description 03/31/2014 Office Visit [facility] Sharath Vega Stress disorder, acute Family Medicine - S, PhD (Primary D x) [place] [address] Social History Tobacco Use Types Packs/Day Years Used Date Current Every Day Smoker 3 Alcohol Use Standard Drinks/Week Comments Yes 0 (1 standard drink = 0.6 oz pure alcoho l) Sex Assigned at Date Recorded Not on file documented as of this encounter Progress Notes Sharath Vega, PhD - 03/31/2014 1434 EST [facility] PROGRESS NOTE Name: Chapin Perez : 1955 Symptoms/Issues Discussed: Chronic pain DSM-IV: [place] I: Anxiety disorder/unspec. 300.00 [place] II: - [place] III: Patient Active Problem List: Patient Active Problem List Diagnosis ??? 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 Ventral hernia, unspecified, without mention of obstruction or gangrene ??? Stress disorder, acute [place] IV: Problems with social environment, Problems with finances and Marital problems Severity: Moderate [place] V: Global Assessment of Functioning 51-60 Moderate Difficulty in Functioning/Moderate Symptoms - Current GAF: 56 Highest GAF in last year: 56 Treatment Plan: Identify and reduce avoidance behaviors contributing negatively to mood Identify, implement and maintain healthy personal boundaries Learn and implement positive coping skills Prognosis: Good Progress to Date: Good PHI: Minutes in session 39 Managed care session/count: - Rationale for therapeutic modality: Treatment is evidence supported CBT at the least frequency thatwill support the treatment goals GAF: 56 PHQ: TATIANA: AUDIT: Medical Issues to Communicate Anxiety: Anxiety and Health Concerns Lifestyle Changes Exercise - same Stress Management - worse Social Support - worse Nutrition - worse Subjective: Patient presented symptoms listed above. Objective: [...] stress documented in this encounter Care Teams Carbide Die Maker Relationship Specialty Start Date End Date Griselda Mcpherson MD PCP - General 04/12/12 03/22/[address] [place] [phone] documented as of this encounter
--- OUTSIDE RECORDS SUMMARY | 2021-11-25 01:04 | XMS_ITS | Encounter Summary ---
:1955 Author Organization [facility] Address [address] [place] [address] Care Team Providers Name Role Phone Griselda Mcpherson MD Primary Care Provider French Mcguire ND Primary Care Provider Encounter Details Date Type Department Care Team Description 09/06/[address] [facility] - French Mcguire [place] [facility] - [place] [address] [facility],[address] [address] [place], [place] [phone] Social History Tobacco Use Types Packs/Day Years Used Date Current Every Day Smoker 3 Alcohol Use Standard Drinks/Week Comments Yes 0 (1 standard drink = 0.6 oz pure alcoho l) Sex Assigned at Date Recorded Not on file documented as of this encounter Plan of Treatment Not on filedocumented as of this encounter Procedures Procedure Name Priority Date/Time Associated Diagnosis Comme nts [place] [id number] [facility] Routine 09/06/2016 15:09 Result s for this EDT procedure are i n the results section. documented in this encounter Results [address] (09/06/2016 15:09 EDT) [address] See Note [facility] Comment: [facility]ENTER [facility] Date mailed to [facility] Labs:09-08-16 Date results received from [facility] Labs:09-12-16 Specimen Narrative [facility] - 017 8:50 EDT Does PT Have a Latex Allergy? NO Performing Organization Address City/State/ZIP Code Phon e Number [facility] [address] [place] [address] [facility] documented in this encounter Visit Diagnoses Not on filedocumented in this encounter Care Teams Data Miner Relationship Specialty Start Date End Date Griselda Mcpherson MD PCP - General 04/12/12 03/22/18 [address] [place] [phone] French Mcguire ND PCP - General 03/23/[address] [address] documented as of this encounter
--- OUTSIDE RECORDS SUMMARY | 2021-11-25 01:04 | XMS_ITS | Encounter Summary ---
:1955 Author Organization [facility] Address [address] [place] [address] Care Team Providers Name Role Phone Griselda Mcpherson MD Primary Care Provider Encounter Details Date Type Department Care Team Description 05/24/2012 Abstract [facility] Griselda Mitchell MD Surgery - [place] [address] [phone] [place], [place] [id number] [phone] Social History Tobacco Use Types Packs/Day Years Used Date Never Assessed Sex Assigned at Date Recorded Not on file documented as of this encounter Plan of Treatment Not on filedocumented as of this encounter Visit Diagnoses Not on filedocumented in this encounter Historical Medications This list may reflect changes made after this encounter. Medication Sig Dispensed Refills Start Date End Date ibuprofen (MOTRIN) 800 mg Take 800 mg by mouth 0 08/05/2013 tablet 3 times daily. added in this encounter Care Teams Manager Of Learning Relationship Specialty Start Date End Date Griselda Mcpherson MD PCP - General 04/12/12 03/22/18 [address] [place] [phone] documented as of this encounter
--- OUTSIDE RECORDS SUMMARY | 2021-11-25 01:04 | XMS_ITS | Encounter Summary ---
:1955 Author Organization [facility] Address [address] [place] [address] Care Team Providers Name Role Phone Griselda Mcpherson MD Primary Care Provider Reason for Visit Reason Comments Stress Encounter Details Date Type Department Care Team Description 12/25/2013 Office Visit [facility] Sharath Vega Stress disorder, acute Family Medicine - S, PhD (Primary D x) [place] [address] Social History Tobacco Use Types Packs/Day Years Used Date Current Every Day Smoker 3 Alcohol Use Standard Drinks/Week Comments Yes 0 (1 standard drink = 0.6 oz pure alcoho l) Sex Assigned at Date Recorded Not on file documented as of this encounter Progress Notes Sharath Vega, PhD - 12/25/2013 1633 EDT [facility] PROGRESS NOTE Name: Chapin Perez : 1955 Symptoms/Issues Discussed: Stress DSM-IV: [place] I: Adjustment disorder w/anxiety & depressed mood 309.28 [place] II: - [place] III: Patient Active Problem List: Patient Active Problem List Diagnosis ??? 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 Ventral hernia, unspecified, without mention of obstruction or gangrene ??? Stress disorder, acute [place] IV: Problems with primary supports, Problems with finances and Problems accessing healthcare Severity: Moderate [place] V: Global Assessment of Functioning 51-60 Moderate Difficulty in Functioning/Moderate Symptoms - Current GAF: 56 Treatment Plan: Identify and reduce avoidance behaviors contributing negatively to mood Identify, implement and maintain healthy personal boundaries Learn and implement positive coping skills Learn and utilize emotion regulation strategies Prognosis: Fair Progress to Date: Good PHI: Minutes in session 56 Managed care session/count: - Rationale for therapeutic modality: Treatment is evidence supported CBT at the least frequency thatwill support the treatment goals and Supportive Psychotherapy is indicated to assist in the management of chronic illness in order to decrease risk of requiring more intensive service and improve coping GAF: 56 PHQ: TATIANA: AUDIT: Medical Issues to Communicate Relationships: Couples Distress Lifestyle Changes Exercise - worse Stress Management - worse Social Support - [...] stress documented in this encounter Care Teams Instructional Design Technologist Relationship Specialty Start Date End Date Griselda Mcpherson MD PCP - General 04/12/12 03/22/[address] [place] [phone] documented as of this encounter
--- OUTSIDE RECORDS SUMMARY | 2021-11-25 01:04 | XMS_ITS | Encounter Summary ---
:1955 Author Organization [facility] Address [address] [place] [address] Care Team Providers Name Role Phone Griselda Mcpherson MD Primary Care Provider Reason for Visit Reason Comments Anxiety Encounter Details Date Type Department Care Team Description 07/30/2014 Office Visit [facility] Santiago Vega Ventra l hernia, unspecified, without mention of obstruction or gangrene (Primary Dx); Family Medicine - S, PhD Stress dis order, acute [address], [place] [address] Social History Tobacco Use Types Packs/Day Years Used Date Current Every Day Smoker 3 Alcohol Use Standard Drinks/Week Comments Yes 0 (1 standard drink = 0.6 oz pure alcoho l) Sex Assigned at Date Recorded Not on file documented as of this encounter Progress Notes Santiago Vega, PhD - 07/30/2014 0947 EDT [facility] PROGRESS NOTE Name: Chapin Perez : 1955 Symptoms/Issues Discussed: Stress DSM-IV: [place] I: 316.0 [place] II: - [place] III: Patient Active Problem List: Patient Active Problem List Diagnosis ??? 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 Ventral hernia, unspecified, without mention of obstruction or gangrene ??? Stress disorder, acute ??? Tobacco abuse [place] IV: Problems accessing healthcare Severity: Moderate [place] V: Global Assessment of Functioning 51-60 Moderate Difficulty in Functioning/Moderate Symptoms - Current GAF: 57 Treatment Plan: Learn and implement positive coping skills Prognosis: Good Progress to Date: Excellent PHI: Minutes in session 56 Managed care session/count: - Rationale for therapeutic modality: Treatment is evidence supported CBT at the least frequency thatwill support the treatment goals GAF: 57 PHQ: TATIANA: AUDIT: Medical Issues to Communicate Anxiety: Health Concerns Patient seen in pre op prior to surgery for hernia repair. He verbalized fear, but was engaged and readily accepted IV insertion. Had taken 5 mg valium at 7 AM and it provided assistance. Will follow in post op later this AM Lifestyle Changes Exercise - improved Stress Management - improved Social Support - improved Nutrition - n/a Subjective: Patient presented symptoms listed above. Objective: Improved Assessment (Goals and Progress Towards Goals): Good follow through with assigned tasks Patient Reported Outcomes: Problems/symptoms: Some progress Mutually agreed to tasks: Were fully accomplished Updated Treatment Plan: Maintain plan identified above documented in this encounter Miscellaneous Notes Addendum Note - Santiago Vega, PhD - 07/30/2014 0956 EDT Addended by: SANTIAGO VEGA on: 07/30/2014 09:56 Modules accepted: Level of Service documented in this encounter Plan of Treatment Not on filedocumented as of this encounter Visit Diagnoses Diagnosis Ventral hernia, unspecified, without men tion of obstruction or gangrene - Primary Stress disorder, acute Other acute reactions to stress documented in this encounter Care Teams Prepleater Relationship Specialty Start Date End Date Griselda Mcpherson MD PCP - General 04/12/12 03/22/[address] [place] [phone] documented as of this encounter
--- OUTSIDE RECORDS SUMMARY | 2021-11-25 01:04 | XMS_ITS | Encounter Summary ---
:[address] [facility] Address [address] [place] [address] Care Team Providers Name Role Phone Griselda Mcpherson MD Primary Care Provider Reason for Visit Reason Comments Post-op Problem Encounter Details Date Type Department Care Team Description 09/03/2014 Office Visit [facility] Sharath Vega Stress disorder, acute Family Medicine - S, PhD (Primary D x) [place] [address] Social History Tobacco Use Types Packs/Day Years Used Date Current Every Day Smoker 3 Alcohol Use Standard Drinks/Week Comments Yes 0 (1 standard drink = 0.6 oz pure alcoho l) Sex Assigned at Date Recorded Not on file documented as of this encounter Discharge Disposition Disposition Code Departure Means Destination Auto Discharge documented in this encounter Progress Notes Sharath Vega, PhD - 09/03/2014 1543 EDT [facility] PROGRESS NOTE Name: Chapin Perez : 1955 Symptoms/Issues Discussed: Stress DSM-IV: [place] 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 Ventral hernia, unspecified, without mention of obstruction or gangrene ??? Stress disorder, acute ??? Tobacco abuse [place] IV: Problems with primary supports, Problems with social environment and Problems accessing healthcare Severity: Moderate [place] V: Global Assessment of Functioning 51-60 Moderate Difficulty in Functioning/Moderate Symptoms - Treatment Plan: Identify and reduce avoidance behaviors contributing negatively to mood Identify, implement and maintain healthy personal boundaries Identify and decrease cognitive distortions contributing negatively to mood and behavior Learn and implement positive coping skills Prognosis: Good Progress to Date: Excellent PHI: Minutes in session 45 Managed care session/count: - Rationale for therapeutic modality: Treatment is evidence supported CBT at the least frequency thatwill support the treatment goals GAF: 58 PHQ: TATIANA: AUDIT: Medical Issues to Communicate Anxiety: Health Concerns Relationships: Couples Distress and Family Tension Lifestyle Changes Exercise - improved Stress Management [...] stress documented in this encounter Care Teams Scrap Worker Relationship Specialty Start Date End Date Griselda Mcpherson MD PCP - General 04/12/12 03/22/[address] [place] [phone] documented as of this encounter
--- OUTSIDE RECORDS SUMMARY | 2021-11-25 01:04 | XMS_ITS | Encounter Summary ---
:1955 Author Organization [facility] Address [address] [place] [address] Care Team Providers Name Role Phone Griselda Mcpherson MD Primary Care Provider French Mcguire ND Primary Care Provider Encounter Details Date Type Department Care Team Description 03/10/[address] [facility] - Griselda Mcpherson [facility] Radiology Resul elsie Cowan MD [address] [place], [place] [id number] [place] [address] [phone] Social History Tobacco Use Types Packs/Day [...] Priority Date/Time Associated Diagnosis Comme nts XR KNEE BILATERAL 03/10/2016 15:30 Result s for this STANDING AP EDT procedure are i n the results section. documented in this encounter Results XR KNEE BILATERAL STANDING AP (03/10/2016 15:30 EDT) Specimen Narrative [facility] - 03/10/2016 15:40 EDT ? EXAM: RADIOLOGY/KNEE BILAT ARTHRITIS SERI EX. D/ (1520) ? CLINICAL INFORMATION: ? M12.9 KNEE ARTHROPATHY ? KNEE BILAT ARTHRITIS SERIES ? Signs and Symptoms/Comments: ??M1 2.9 KNEE ARTHROPATHY ? Comparison: 04/13/2012 ? Findings: ? Right Knee: Standing AP, PA flexi on, lateral and sunrise views were ? performed. Mild depression of the subchondral portion of the medial ? femoral condyle is stable from 20 12, suggesting sequela of remote ? subchondral impaction injury. No acute fracture or malalignment is ? identified. Moderate tricompartme ntal degenerative changes are ? present as evidenced by joint spa ce narrowing, osteophytosis, and ? subchondral sclerosis. These find ings are similar to 2011. Trace ? suprapatellar joint fluid is like ly physiologic. ? Left Knee: Standing AP, PA flexio n, lateral and sunrise views were ? performed. No acute fracture or m alalignment is identified. Moderate ? tricompartmental degenerative junior nges are present as evidenced by ? joint space narrowing, osteophyto sis, and subchondral sclerosis. ? There is a possible tiny 3 mm jay cified intra-articular body in the ? lateral tibiofemoral compartment (although this is only visible on ? the standing PA view. A trace sup rapatellar joint effusion is ? present. ? IMPRESSION: ? 1. ??Moderate bilateral tricompar tmental osteoarthrosis. ? 2. ??Chronic mild subchondral imp action injury along the medial ? condyle of the distal right femur . ? 3. ??Possible tiny 3 mm calcified intra-articular body in the lateral ? tibiofemoral compartment of the l eft knee. Differential includes an ? osteophyte. ? 4. ??Trace suprapatellar joint ef fusions. ? REPORT SIGNED IN OTHER VENDOR SYSTEM 03/10/2016 ?Reported B y: Arturo Jimenez MD ? CC: ? Transcribed Date/Time: 03/10/2016 (1540) ? Bottom Presser: SCR ? Printed Date/Time: 10/19/2018 (23 17) ? PAGE 1 ? Bri d Report ? Procedure Note Arturo Jimenez MD - 03/13/2019 EXAM: RADIOLOGY/KNEE BILAT ARTHRITIS SE RI EX. D/ (1520) CLINICAL INFORMATION: M12.9 KNEE ARTHROPATHY KNEE BILAT ARTHRITIS SERIES Signs and Symptoms/Comments: M12.9 KNEE ARTHROPATHY Comparison: 04/13/2012 Findings: Right Knee: Standing AP, PA flexion, la teral and sunrise views were performed. Mild depression of the subch ondral portion of the medial femoral condyle is stable from 2011, kaur ggesting sequela of remote subchondral impaction injury. No acute fracture or malalignment is identified. Moderate tricompartmental d egenerative changes are present as evidenced by joint space janelle rowing, osteophytosis, and subchondral sclerosis. These findings a re similar to 2012. Trace suprapatellar joint fluid is likely phy siologic. Left Knee: Standing AP, PA flexion, lat eral and sunrise views were performed. No acute fracture or malalig nment is identified. Moderate tricompartmental degenerative changes a re present as evidenced by joint space narrowing, osteophytosis, a nd subchondral sclerosis. There is a possible tiny 3 mm calcified intra-articular body in the lateral tibiofemoral compartment (altho ugh this is only visible on the standing PA view. A trace suprapate llar joint effusion is present. IMPRESSION: 1. Moderate bilateral tricompartmental osteoarthrosis. 2. Chronic mild subchondral impaction i njury along the medial condyle of the distal right femur. 3. Possible tiny 3 mm calcified intra-a rticular body in the lateral tibiofemoral compartment of the left kn ee. Differential includes an osteophyte. 4. Trace suprapatellar joint effusions. REPORT SIGNED IN OTHER VENDOR SYSTEM 03/10/2016 Reported By: Arturo Jimenez MD CC: Transcribed Date/Time: 03/10/2016 (1540 ) Bottom Presser: Printed Date/Time: 10/19/2018 (9353) PAGE 1 Signed Report Performing Organization Address City/State/ZIP Code Phon e Number [facility] documented in this encounter Visit Diagnoses Not on filedocumented in this encounter Care Teams Sports Medicine Coordinator Relationship Specialty Start Date End Date Griselda Mcpherson MD PCP - General 04/12/12 03/22/18 [address] [place] [phone] French Mcguire ND PCP - General 03/23/[address] [address] documented as of this encounter
--- OUTSIDE RECORDS SUMMARY | 2021-11-25 01:04 | XMS_ITS | Encounter Summary ---
:1955 Author Organization [facility] Address [address] [place] [address] Care Team Providers Name Role Phone Griselda Mcpherson MD Primary Care Provider Reason for Visit Reason Comments Stress Encounter Details Date Type Department Care Team Description 11/26/2014 Office Visit [facility] Sharath Vega Stress disorder, acute Family Medicine - S, PhD (Primary D x) [place] [address] Social History Tobacco Use Types Packs/Day Years Used Date Current Every Day Smoker 3 Alcohol Use Standard Drinks/Week Comments Yes 0 (1 standard drink = 0.6 oz pure alcoho l) Sex Assigned at Date Recorded Not on file documented as of this encounter Progress Notes Sharath Vega, PhD - 11/26/2014 1601 EDT [facility] PROGRESS NOTE Name: Chapin Perez : 1955 Symptoms/Issues Discussed: Adjustment issues DSM-IV: Stephen I: ADJUSTMENT DISORDER Stephen II: - Stephen III: Patient Active Problem List: Patient Active Problem List Diagnosis ??? 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 Ventral hernia, unspecified, without mention of obstruction or gangrene ??? Stress disorder, acute ??? Tobacco abuse Stephen IV: Problems with primary supports, Problems with social environment, Problems with employment/school and Problems with finances Severity: Moderate Stephen V: Global Assessment of Functioning 51-60 Moderate Difficulty in Functioning/Moderate Symptoms - Treatment Plan: Identify and reduce avoidance behaviors contributing negatively to mood Identify, implement and maintain healthy personal boundaries Learn and implement positive coping skills Smoking cessation Prognosis: Good Progress to Date: Excellent PHI: [...] stress documented in this encounter Care Teams Electrician Station Assistant Relationship Specialty Start Date End Date Griselda Mcpherson MD PCP - General 04/12/12 03/22/[address] [place] [address] [phone] documented as of this encounter
--- OUTSIDE RECORDS SUMMARY | 2021-11-25 01:04 | XMS_ITS | Encounter Summary ---
:1955 Author Organization [facility] Address [address] [place] [address] Care Team Providers Name Role Phone Griselda Mcpherson MD Primary Care Provider Reason for Visit Reason Comments Discuss Surgery Encounter Details Date Type Department Care Team Description 02/12/2014 Office Visit [facility] Sharath Vega Stress disorder, acute Family Medicine - S, PhD (Primary D x) [address], [place] [address] Social History Tobacco Use Types Packs/Day Years Used Date Current Every Day Smoker 3 Alcohol Use Standard Drinks/Week Comments Yes 0 (1 standard drink = 0.6 oz pure alcoho l) Sex Assigned at Date Recorded Not on file documented as of this encounter Progress Notes Sharath Vega, PhD - 02/12/2014 1720 EDT [facility] PROGRESS NOTE Name: Chapin Perez : 1955 Symptoms/Issues Discussed: Adjustment issues DSM-IV: Lillian I: Anxiety disorder/unspec. 300.00 Lillian II: - Lillian III: Patient Active Problem List: Patient Active Problem List Diagnosis ??? 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 Ventral hernia, unspecified, without mention of obstruction or gangrene ??? Stress disorder, acute Lillian IV: Problems accessing healthcare Severity: Moderate Lillian V: Global Assessment of Functioning 51-60 Moderate [...] least frequency thatwill support the treatment goals PHQ: TATIANA: AUDIT: Medical Issues to Communicate Close to setting surgery date Lifestyle Changes Exercise - same Stress Management - same Social Support - improved Nutrition - same Subjective: Patient presented symptoms listed above. Objective: Improved and Same Assessment (Goals and Progress Towards Goals): Mood [...] stress documented in this encounter Care Teams Metaphysicist Relationship Specialty Start Date End Date Griselda Mcpherson MD PCP - General 04/12/12 03/22/[address] [place] [phone] documented as of this encounter
--- OUTSIDE RECORDS SUMMARY | 2021-11-25 01:04 | XMS_ITS | Encounter Summary ---
:1955 Author Organization [facility] Address [address] [place] [address] Care Team Providers Name Role Phone Griselda Mcpherson MD Primary Care Provider Reason for Visit Reason Comments Discuss Surgery Encounter Details Date Type Department Care Team Description 07/28/2014 Office Visit [facility] Santiago Vega Stress disorder, acute (Primary Dx); Family Medicine - S, PhD Ventral he rnia, unspecified, without [place] [address] Social History Tobacco Use Types Packs/Day Years Used Date Current Every Day Smoker 3 Alcohol Use Standard Drinks/Week Comments Yes 0 (1 standard drink = 0.6 oz pure alcoho l) Sex Assigned at Date Recorded Not on file documented as of this encounter Progress Notes Santiago Vega, PhD - 07/28/2014 1722 EDT [facility] PROGRESS NOTE Name: Chapin Perez : 1955 Symptoms/Issues Discussed: Somatic complaints DSM-IV: Hudson I: Adjustment disorder w/anxiety 309.24 Hudson II: - Hudson III: Patient Active Problem List: Patient Active Problem List Diagnosis ??? 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 Ventral hernia, unspecified, without mention of obstruction or gangrene ??? Stress disorder, acute ??? Tobacco abuse Hudson IV: Problems with primary supports, Problems with social environment and Problems accessing healthcare Severity: Moderate Hudson V: Global Assessment of Functioning 51-60 Moderate Difficulty in Functioning/Moderate Symptoms - Treatment Plan: Identify and reduce avoidance behaviors contributing negatively to mood Identify, implement and maintain healthy personal boundaries Learn and implement positive coping skills Prognosis: Good Progress to Date: Excellent PHI: Minutes in session 65 Managed care session/count: - Rationale for therapeutic modality: Treatment is evidence supported CBT at the least frequency thatwill support the treatment goals and Supportive Psychotherapy is indicated to assist in the management of chronic illness in order to decrease risk of requiring more intensive service and improve coping GAF: 55 PHQ: TATIANA: AUDIT: Medical Issues to Communicate Anxiety: Anxiety Patient is focusing on surgery with some trepidation but has work out all day to day details and, while nervous(ie IV insert, etc I imagine he will handle things. Will spend time in pre op at 8 AM prior to surgery and then follow. Lifestyle Changes Exercise - same Stress Management [...] Addendum Note - Santiago Vega, PhD - 07/28/2014 1727 EDT Addended by: SANTIAGO VEGA on: 07/28/2014 17:27 Modules accepted: Level of Service documented in this encounter Plan of Treatment Not on filedocumented as of this encounter Visit Diagnoses Diagnosis Stress disorder, acute - Primary Other acute reactions to stress Ventral hernia, unspecified, without men tion of obstruction or gangrene documented in this encounter Care Teams Client Portfolio Manager Relationship Specialty Start Date End Date Griselda Mcpherson MD PCP - General 04/12/12 03/22/[address] [place] [phone] documented as of this encounter
--- OUTSIDE RECORDS SUMMARY | 2021-11-25 01:04 | XMS_ITS | Encounter Summary ---
:1955 Author Organization [facility] Address [address] [place] [address] Care Team Providers Name Role Phone Griselda Mcpherson MD Primary Care Provider Reason for Visit Reason Comments Discuss Surgery Encounter Details Date Type Department Care Team Description 08/11/2014 Office Visit [facility] Santiago Vega Stress disorder, acute Family Medicine - S, PhD (Primary D x) [address], [place] [address] Social History Tobacco Use Types Packs/Day Years Used Date Current Every Day Smoker 3 Alcohol Use Standard Drinks/Week Comments Yes 0 (1 standard drink = 0.6 oz pure alcoho l) Sex Assigned at Date Recorded Not on file documented as of this encounter Progress Notes Santiago Vega, PhD - 08/11/2014 1626 EDT [facility] PROGRESS NOTE Name: Chapin Perez : 1955 Symptoms/Issues Discussed: Stress DSM-IV: Walton I: 316 Walton II: - Walton III: Patient Active Problem List: Patient Active Problem List Diagnosis ??? 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 Ventral hernia, unspecified, without mention of obstruction or gangrene ??? Stress disorder, acute ??? Tobacco abuse Walton IV: Problems accessing healthcare Severity: Severe Walton V: Global Assessment of Functioning 51-60 Moderate [...] Medical Issues to Communicate Anxiety: Health Concerns Activation issues Patient mood affect and overall function excellent post surgery. Feed back is that he has not felt this well in 4 years. He also DC'd smoking at time of surgery and maintains smoke free after 2 slight relapses Lifestyle Changes Exercise - same Stress Management - improved Social Support - improved Nutrition - n/a Subjective: Patient presented symptoms listed above. Objective: Improved Assessment (Goals and Progress Towards Goals): Good follow through with assigned tasks, Mood and affect improved, Patient is activated and Self report that problem is improving Patient Reported Outcomes: Problems/symptoms: Resolved Mutually agreed to tasks: Were fully accomplished Updated Treatment Plan: Maintain plan identified above documented in this encounter Miscellaneous Notes Addendum Note - Santiago Vega, PhD - 08/11/2014 1724 EDT Addended by: SANTIAGO VEGA on: 08/11/2014 17:24 Modules accepted: Level of Service documented in this encounter Plan of Treatment Not on filedocumented as of this encounter Visit Diagnoses Diagnosis Stress disorder, acute - Primary Other acute reactions to stress documented in this encounter Care Teams Group Dynamics Instructor Relationship Specialty Start Date End Date Griselda Mcpherson MD PCP - General 04/12/12 03/22/[address] [place] [phone] documented as of this encounter
--- OUTSIDE RECORDS SUMMARY | 2021-11-25 01:04 | XMS_ITS | Encounter Summary ---
:[address] [facility] Address [address] [place] [address] Care Team Providers Name Role Phone Griselda Mcpherson MD Primary Care Provider Reason for Visit Reason Comments Stress Encounter Details Date Type Department Care Team Description 06/08/2016 Office Visit [facility] Sharath Vega Adjust ment disorder Family Medicine - S, PhD with mixed disturbance [place] of emotions and [address] conduct (Primary Dx) [address] [place], [place] [id number] Social History Tobacco Use Types Packs/Day Years Used Date Current Every Day Smoker 3 Alcohol Use Standard Drinks/Week Comments Yes 0 (1 standard drink = 0.6 oz pure alcoho l) Sex Assigned at Date Recorded Not on file documented as of this encounter Progress Notes Sharath Vega, PhD - 06/08/2016 1400 EST FA [facility] PROGRESS NOTE Name: Chapin Perez : 1955 Symptoms/Issues Discussed: Adjustment issues ICD: [place] I: ADJUSTMENT DISORDER [place] II: - [place] III: Patient Active Problem List: Patient Active Problem List Diagnosis ??? 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 Ventral hernia without obstruction or gangrene ??? Stress disorder, acute ??? Tobacco abuse ??? Adjustment disorder with mixed disturbance of emotions and conduct [place] IV: Problems with primary supports and Problems with social environment Severity: Moderate [place] V: Global Assessment of Functioning 51-60 Moderate Difficulty in Functioning/Moderate Symptoms - History of Presenting Problem Location: Patient's Home, Community and Worksite Impact on Quality of Life: Moderate Impact Severity: Regular Presence Duration: Longer than 1 Year Timing: No Specific Time Context: By Myself, With Specific People and With Family Members Modifying Factors: Mood, When Stressed and When Tired Associated Signs and Symptoms: Changes in: Thinking and Emotional State Treatment Plan Summary of Goals: Identify and reduce avoidance behaviors contributing negatively to mood Identify, implement and maintain healthy personal boundaries Identify and decrease cognitive distortions contributing negatively to mood and behavior Learn and utilize emotion regulation strategies Progress to Date: Good follow through with assigned tasks Frequency and Duration of Service: Twice monthly for up to 1 year. Rationale for Therapeutic Modality: Treatment is evidence supported CBT at the least frequency that will support the treatment goals Prognosis: Good PHI: Minutes in session 29 Session length up to 30 minutes Managed care session/count: - No flowsheet data found. Medical Issues to Communicate Anxiety: Anxiety and Health Concerns Lifestyle Changes Exercise - same Stress Management - improved Social Support - improved Nutrition - improved Subjective: Patient presented symptoms listed above. Objective: Some Change mood, thought and behavior each improved. Coping with pain symptoms Patient Reported Outcomes: Problems/symptoms: Some progress Mutually agreed to tasks: Were partially accomplished Updated Treatment Plan: Maintain plan identified above documented in this encounter Plan of Treatment Not on filedocumented as of this encounter Visit Diagnoses Diagnosis Adjustment disorder with mixed disturban ce of emotions and conduct - Primary documented in this encounter Care Teams Color Printer Operator Relationship Specialty Start Date End Date Griselda Mcpherson MD PCP - General 04/12/12 03/22/[address] [place] [address] [phone] documented as of this encounter
--- OUTSIDE RECORDS SUMMARY | 2021-11-25 01:04 | XMS_ITS | Encounter Summary ---
:1955 Author Organization [facility] Address [address] [place] [address] Care Team Providers Name Role Phone Griselda Mcpherson MD Primary Care Provider Reason for Visit Reason Comments Discuss Surgery Encounter Details Date Type Department Care Team Description 08/05/2013 Office Visit [facility] Sharath Vega Ventra l hernia, Family Medicine - S, PhD unspecifie d, without [place] mention of obstruction [address] or gangrene (Primary [address] Dx) [place], [place] [id number] Social History Tobacco Use Types Packs/Day Years Used Date Current Every Day Smoker 3 Alcohol Use Standard Drinks/Week Comments Yes 0 (1 standard drink = 0.6 oz pure alcoho l) Sex Assigned at Date Recorded Not on file documented as of this encounter Progress Notes Sharath Vega, PhD - 08/05/2013 1600 EDT Psychologist Note Name: Chapin Perez : 1955 Symptoms Discussed: Phobia re needed surgery Treatment Plan: Initial Individual Therapy Prognosis: Good Progress to Date: Modest PHI: Time in session 28 Managed care session/count: Rationale for type and frequency of treatment. Treatment is evidence supported CBT at the least frequency that will support treatment goals. GAF: 56 PHQ: - TATIANA: - AUDIT: - Medical Issues to Communicate Anxiety: Anxiety and Heralth Concerns Compliance issues Subjective: Patient presented symptoms listed above. Objective: Same Assessment: Dr. Mallory requested a consult on this 57 year old man who badly needs hernia surgery but is highly resistant. We established rapport discussed general surgical issues and scheduled a timenext week. Plan: De arousal and needle phobia training, surgical preparation, in coordination with Dr. Mallory documented in this encounter Plan of Treatment Not on filedocumented as of this encounter Visit Diagnoses Diagnosis Ventral hernia, unspecified, without men tion of obstruction or gangrene - Primary documented in this encounter Care Teams Load Out Supervisor Relationship Specialty Start Date End Date Griselda Mcpherson MD PCP - General 04/12/12 03/22/[address] [place] [phone] documented as of this encounter
--- OUTSIDE RECORDS SUMMARY | 2021-11-25 01:04 | XMS_ITS | Encounter Summary ---
:1955 Author Organization [facility] Address [address] [place] [address] Care Team Providers Name Role Phone Griselda Mcpherson MD Primary Care Provider Reason for Visit Reason Comments Difficulty Adjusting Encounter Details Date Type Department Care Team Description 05/18/2015 Office Visit [facility] Sharath Vega Adjust ment disorder Family Medicine - S, PhD with mixed disturbance [place] of emotions and [address] conduct (Primary Dx) [address] [place], [place] [phone] Social History Tobacco Use Types Packs/Day Years Used Date Current Every Day Smoker 3 Alcohol Use Standard Drinks/Week Comments Yes 0 (1 standard drink = 0.6 oz pure alcoho l) Sex Assigned at Date Recorded Not on file documented as of this encounter Progress Notes Sharath Vega, PhD - 05/18/2015 1704 EST [facility] PROGRESS NOTE Name: Chapin Perez : 1955 Symptoms/Issues Discussed: Adjustment issues DSM-IV: Marion I: ADJUSTMENT DISORDER Marion II: - Marion III: Patient Active Problem List: Patient Active Problem List Diagnosis ??? 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 Ventral hernia without obstruction or gangrene ??? Stress disorder, acute ??? Tobacco abuse ??? Adjustment disorder with mixed disturbance of emotions and conduct Marion IV: Problems with primary supports and Problems with social environment Severity: Moderate Marion V: Global Assessment of Functioning 51-60 Moderate [...] Primary documented in this encounter Care Teams Secretary Bookkeeper Relationship Specialty Start Date End Date Griselda Mcpherson MD PCP - General 04/12/12 03/22/[address] [place] [address] [phone] documented as of this encounter
--- OUTSIDE RECORDS SUMMARY | 2021-11-25 01:04 | XMS_ITS | Encounter Summary ---
:1955 Author Organization [facility] Address [address] [place] [address] Care Team Providers Name Role Phone Griselda Mcpherson MD Primary Care Provider Reason for Visit Reason Comments Stress Encounter Details Date Type Department Care Team Description 08/12/2015 Office Visit [facility] Sharath Vega Adjust ment disorder Family Medicine - S, PhD with mixed disturbance [place] of emotions and [address] conduct (Primary Dx) [address] [place], [place] [id number] Social History Tobacco Use Types Packs/Day Years Used Date Current Every Day Smoker 3 Alcohol Use Standard Drinks/Week Comments Yes 0 (1 standard drink = 0.6 oz pure alcoho l) Sex Assigned at Date Recorded Not on file documented as of this encounter Progress Notes Sharath Vega, PhD - 08/12/2015 1744 EDT [facility] PROGRESS NOTE Name: Chapin Perez : 1955 Symptoms/Issues Discussed: Adjustment issues ICD: [place] I: ADJUSTMENT DISORDER [place] II: - [place] III: Patient Active Problem List: Patient Active Problem List Diagnosis ??? 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 Ventral hernia without obstruction or gangrene ??? Stress disorder, acute ??? Tobacco abuse ??? Adjustment disorder with mixed disturbance of emotions and conduct [place] IV: Problems with primary supports Severity: Moderate [place] V: Global Assessment of Functioning 51-60 Moderate Difficulty in Functioning/Moderate Symptoms - Treatment Plan: Summary of goals Identify and reduce avoidance behaviors contributing negatively to mood Identify, implement and maintain healthy personal boundaries Progress to date functioning better with left conflict and anger Frequency and duration of service twice monthly, up to 2 years Prognosis: Good Progress to Date: Excellent 1 year post hernia repair, health is reported as excellent PHI: Minutes in session 55 Managed care session/count: - Rationale for therapeutic modality: Treatment is evidence supported CBT at the least frequency thatwill support the treatment goals and Supportive Psychotherapy is indicated to assist in the management of chronic illness in order to improve coping No flowsheet data found. Medical Issues to Communicate Anxiety: Health Concerns and Tired Lifestyle Changes Exercise - improved Stress Management [...] Primary documented in this encounter Care Teams Tube Builder Airplane Relationship Specialty Start Date End Date Griselda Mcpherson MD PCP - General 04/12/12 03/22/[address] [place] [phone] documented as of this encounter
--- OUTSIDE RECORDS SUMMARY | 2021-11-25 01:04 | XMS_ITS | Encounter Summary ---
:1955 Author Organization [facility] Address [address] [place] [address] Care Team Providers Name Role Phone Griselda Mcpherson MD Primary Care Provider Reason for Visit Reason Comments Stress Encounter Details Date Type Department Care Team Description 11/04/2015 Office Visit [facility] Sharath Vega Adjust ment disorder Family Medicine - S, PhD with mixed disturbance [place] of emotions and [address] conduct (Primary Dx) [address] [place], [place] [id number] Social History Tobacco Use Types Packs/Day Years Used Date Current Every Day Smoker 3 Alcohol Use Standard Drinks/Week Comments Yes 0 (1 standard drink = 0.6 oz pure alcoho l) Sex Assigned at Date Recorded Not on file documented as of this encounter Progress Notes Sharath Vega, PhD - 11/04/2015 1746 EDT [facility] PROGRESS NOTE Name: Chapin Perez : 1955 Symptoms/Issues Discussed: Adjustment issues ICD: [place] I: ADJUSTMENT DISORDER [place] II: - [place] III: Patient Active Problem List: Patient Active Problem List Diagnosis ??? 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 Ventral hernia without obstruction or gangrene ??? Stress disorder, acute ??? Tobacco abuse ??? Adjustment disorder with mixed disturbance of emotions and conduct [place] IV: Problems with primary supports, Problems with social environment and Relationship problems Severity: Moderate [place] V: Global Assessment of Functioning 51-60 Moderate Difficulty in Functioning/Moderate Symptoms - Treatment Plan: Summary of goals Identify, implement and maintain healthy personal boundaries Identify and decrease cognitive distortions contributing negatively to mood and behavior Learn and implement positive coping skills Progress to date continued improved functioning and mood Frequency and duration of service twice monthly, up to 2 years. Prognosis: Excellent Progress to Date: Excellent PHI: [...] to Communicate Anxiety: Anxiety Relationships: Couples Distress and Social Difficulties Lifestyle [...] Primary documented in this encounter Care Teams Lens Blocker Relationship Specialty Start Date End Date Griselda Mcpherson MD PCP - General 04/12/12 03/22/[address] [place] [phone] documented as of this encounter
--- OUTSIDE RECORDS SUMMARY | 2021-11-25 01:05 | XMS_ITS | Encounter Summary ---
:1955 Author Organization [facility] Address [address] [place] [address] Care Team Providers Name Role Phone Griselda Mcpherson MD Primary Care Provider Reason for Visit Reason Onset Date Comments Appointment Related 05/15/2012 Encounter Details Date Type Department Care Team Description 05/15/2012 Telephone [facility] Greta Longo Appoi ntment Related General Surgery - Be kimberly Castro MD [address] [facility] [address] [facility] [address] [place] [address] [place], [place] [phone] (Wo rk) Social History Tobacco Use Types Packs/Day Years Used Date Never Assessed Sex Assigned at Date Recorded Not on file documented as of this encounter Miscellaneous Notes Telephone Encounter - Helene Chen - 05/15/2012 0923 EST I called to reschedule Chapin's appointment that was on 05/16/12 @ 2:45. Dr. Longo is not in the office that day. I have rescheduled Chapin on 05/28/12 @ 1:15pm. Please confirm. documented in this encounter Plan of Treatment Not on filedocumented as of this encounter Visit Diagnoses Not on filedocumented in this encounter Care Teams Leather Scrubber Relationship Specialty Start Date End Date Griselda Mcpherson MD PCP - General 04/12/12 03/22/[address] [place] [phone] documented as of this encounter
== END ==
PROVIDERS: PCP Physician Assistant; Visit Provider Physician Assistant
DX: Z12.2 Encounter for screening for malignant neoplasm of respiratory organs (principal); F17.210 Nicotine dependence, cigarettes, uncomplicated; R91.1 Solitary pulmonary nodule; K76.89 Other specified diseases of liver
CPT/HCPCS: 71271